=== PATIENT | male | born 1980 | race Caucasian/White ===

== ENCOUNTER 2019-11-28 14:15 | Observation (INO) | payer OTHER, SELFPAY ==
--- NOTE | ~2019-11-28 | CT_ITS ---
EXAMINATION: CT brain w con DATE: 11/28/2019 16:21 INDICATION: Right sided skull mass for 5 days TECHNIQUE: Computed tomography (CT) of the head was performed with 100 cc Omnipaque 350 intravenous c ontrast. The dose-length product was 605.33 mGy-cm. Automated exposure control and iterative reconstr uction technique were employed. COMPARISON: No prior studies for comparison. FINDINGS: No acute intracranial hemorrhage, infarction, mass or mass effect. No abnormal enhancement. No ventriculomegaly or midline shift. Basilar cisterns are patent. Paranasal sinuses demonstrate mil d mucosal thickening of the ethmoid sinuses. Mastoids are pneumatized. No depressed skull fractures. IMPRESSION: 1. No abnormal masses. No acute intracranial abnormality. Reviewed, dictated and finalized at location A.
[2019-11-28 14:35] VITALS: BP 159/89; PULSE 89; RESP 17; TEMP 37.2; O2SAT 97
--- NOTE | 2019-11-28 15:09 | ED.SKABFB ---
HPI - Skin/Abscess/Foreign Bdy General Chief complaint: Skin/Abscess/Foreign Body Stated complaint: knot on the back of neck Source: patient History of Present Illness HPI narrative: 39-year-old developed a mass behind his right ear 5 days ago that has gotten larger. It's uncomfortable at rest, made worse by turning his head to the left. He was started on Bactrim and cephalexin. He denies fevers, chills, nausea or vomiting. He states he has always had a small lump on his right posterior neck. He has chronic problems with small pustules appearing on his posterior scalp. He has history of MRSA of the scalp. His last MRSA infection was over a year ago. He has a history of getting small posterior scalp pustules. Related Data Home Medications Medication Instructions Recorded Confirmed albuterol sulfate 90 mcg/actuation 1 puff INHALATION Q4-5H 11/24/19 11/28/19 aerosol inhaler Allergies Allergy/AdvReac Type Severity Reaction Status Date / Time lisinopril Allergy Intermediate Cough Verified 11/24/19 08:23 Review of Systems Constitutional: Constitutional: Denies body ache(s) ENT: Denies nasal discharge and Denies sore throat Respiratory: Respiratory: Denies cough and Denies dyspnea Comments: no recent exacerbation of asthma. Gastrointestinal: Gastrointestinal: Denies diarrhea, Denies nausea and Denies vomiting Integumentary/Breasts: Comments: no rash PMFSH Past Medical History Medical History (Updated 11/29/19 @ 01:29 by Krishan Joseph MD) Cellulitis 08/2017 Required hospitalization 05/2016 Required hospitalization Cigarette nicotine dependence HTN (hypertension) Moderate persistent asthma Obesity FABIAN (obstructive sleep apnea) Surgical History Surgical History (Updated 11/24/19 @ 09:31 by Khushi Moran MA) H/O knee surgery Social History Social History Smoking packs per day: 1 Smoking cigarettes per day: 20.0 Smoking status: Former smoker Tobacco type: cigarettes Smokeless tobacco user: chewing tobacco Second hand tobacco smoke exposure: Yes Alcohol intake: current Drinks per week: 5 Substance use: current Substance use type: marijuana Additional living arrangements comments: , has 2 children Gender identity (if verbalized by the patient): Male Sexual Orientation (if Verbalized by the Patient): Straight or Heterosexual Spiritual care concerns: No Exam Const: General: no acute distress Nutritional Appearance: obese Orientation/consciousness: patient oriented x3 Other: nAD HENMT: Head: scalp lesion (See diagram. ), scalp tenderness and other Head images: 1. 10 x 12 cm subcutaneous mass. The skin is pink with small scattered papules. The mass is indurated with minor tenderness. It is not warm. There is no fluctuance. There's no hair loss, pustules or scaly rash. Ears: external ears normal (no right auricular swelling or tenderness. ) Neck: Lymphatic: no lymphadenopathy noted Other: Full neck ROM but c/o of tightness and increased discomfort with head rotation to the left. Course Course Emergency Course: I spoke to aviation survival technician about best soft tissue CT to do looking to more clearly identify right scalp lesion. No soft tissue head scan study. CT brain with IV contrast was identified as the best study. I discussed the lab and CT results with pt. Enlarging and more tender mass is concerning for inadequately treated scalp cellulitis. Will admit for IV antibiotics. Vital Signs Vital signs: Vital Signs Temperature 37.2 C 11/28/19 14:35 Pulse Rate 89 11/28/19 14:35 Respiratory Rate 17 11/28/19 14:35 Blood Pressure 159/89 H 11/28/19 14:35 Pulse Oximetry 97 11/28/19 14:35 Temperature 37.0 C 11/29/19 00:00 Pulse Rate 80 11/29/19 00:00 Respiratory Rate 20 11/29/19 00:00 Blood Pressure 123/88 11/29/19 00:00 Pulse Oximetry 97 11/29/19 00:00 [facility] -
[2019-11-28 15:23] LABS: Basophils Absolute Auto 0.05 K/mm3 (0.00-0.10); Basophils Percent Auto 0.7 % (0.0-1.0); Eosinophils Percent Auto 2.6 % (1.0-6.0); Hematocrit 47.1 % (40.0-54.0); Hemoglobin 14.7 g/dL (14.0-18.0); Immature Granulocyte Absolute 0.03 K/mm3 (0.00-0.00); Immature Granulocyte Percent A 0.4 % (0.0-0.0); Lymphocytes Absolute Auto 0.91 K/mm3 (1.10-4.50); Lymphocytes Percent Auto 11.9 % (18.0-42.0); Mean Corpuscular HGB Conc 31.2 g/dL (32.0-36.0); Mean Corpuscular Hemoglobin 28.1 pg (27.0-31.0); Mean Corpuscular Volume 90.1 fL (78.0-102.0); Mean Platelet Volume 10.9 fl (8.7-11.0); Monocytes Percent Auto 9.2 % (2.0-11.0); Neutrophils Absolute Auto 5.7 K/mm3 (1.7-7.2); Neutrophils Percent Auto 75.2 % (50.0-70.0); Platelet Count Result 181 K/mm3 (150-420); Red Blood Count 5.23 M/mm3 (4.70-6.10); Red Cell Distribution Width 13.8 % (11.6-14.4); White Blood Count 7.6 K/mm3 (4.8-10.8)
[2019-11-28 15:32] LABS: Anion Gap 10.2 mmol/L (7-16); Blood Urea Nitrogen 12 mg/dL (7-18); Carbon Dioxide 30 mmol/L (21-32); Chloride 102 mmol/L (98-108); Estimated Glomerular Filt Rate > 60; Glucose 110 mg/dL (70-99); Osmolality Calculated 286 mOsm/kg (285-295); Potassium 4.2 mmol/L (3.5-5.1); Sodium 138 mmol/L (136-145)
[2019-11-28 17:26] VITALS: BP 150/86; PULSE 69; O2SAT 94
[2019-11-28 17:52] VITALS: BMI 52.4
[2019-11-28] MEDS: ALBUTEROL SULFATE (*SP) INHALER 1 PUFF INHALATION ×2 (18:40→22:18)
[2019-11-28] MEDS: BUDESONIDE/FORMOTEROL (*SP) 160-4.5 MCG 6 GM INH 2 PUFF INHALATION (18:40)
--- NOTE | 2019-11-28 19:30 | PC.NURSE ---
patient sitting in chair at bedside. Denies need for assistance at this time.
[2019-11-28 20:00] VITALS: BP 144/77; PULSE 92; RESP 18; TEMP 37.1; O2SAT 95
--- NOTE | 2019-11-28 20:39 | PC.NURSE ---
vancomycin infusion started
--- NOTE | 2019-11-28 21:27 | PC.NURSE ---
home medications placed in bin in med room
--- NOTE | 2019-11-28 21:30 | PC.NURSE ---
vancomycin infusing patient tolerating well
--- NOTE | 2019-11-28 22:15 | PC.NURSE ---
Vancomycin infusion finished. Patient denies complaints.
--- NOTE | 2019-11-28 23:00 | PC.NURSE ---
Patient sitting in chair at bedside. Patient tolerated vancomycin infusion well. Patient denies needing assistance at this time.
[2019-11-29] VITALS: BP 123/88; PULSE 80; RESP 20; TEMP 37; O2SAT 97
--- NOTE | 2019-11-29 | PC.NURSE ---
Vital signs taken. Patient resting in bed. No complaints. Patient appears to be tolerating antibiotics well.
--- NOTE | 2019-11-29 01:00 | PC.NURSE ---
Patient resting in bed. No complaints. Patient tolerating antibiotics well.
--- NOTE | 2019-11-29 02:00 | PC.NURSE ---
Patient resting in bed. No reaction to vancomycin noted.
--- NOTE | 2019-11-29 03:40 | PC.NURSE ---
Patient resting in bed. No reactions to antibiotics noted.
--- NOTE | 2019-11-29 03:43 | PC.NURSE ---
Patient resting in bed. No complaints. Patient tolerating antibiotics well.
[2019-11-29 04:00] VITALS: BP 123/78; PULSE 61; RESP 18; TEMP 35.9; O2SAT 96
[2019-11-29 05:49] LABS: Basophils Absolute Auto 0.03 K/mm3 (0.00-0.10); Basophils Percent Auto 0.4 % (0.0-1.0); Eosinophils Absolute Auto 0.21 K/mm3 (0.02-0.50); Eosinophils Percent Auto 2.9 % (1.0-6.0); Hematocrit 43.8 % (40.0-54.0); Hemoglobin 13.4 g/dL (14.0-18.0); Immature Granulocyte Absolute 0.03 K/mm3 (0.00-0.00); Immature Granulocyte Percent A 0.4 % (0.0-0.0); Lymphocytes Absolute Auto 1.16 K/mm3 (1.10-4.50); Lymphocytes Percent Auto 16.2 % (18.0-42.0); Mean Corpuscular HGB Conc 30.6 g/dL (32.0-36.0); Mean Corpuscular Volume 91.4 fL (78.0-102.0); Mean Platelet Volume 10.9 fl (8.7-11.0); Monocytes Absolute Auto 0.63 K/mm3 (0.10-0.90); Monocytes Percent Auto 8.8 % (2.0-11.0); Neutrophils Absolute Auto 5.1 K/mm3 (1.7-7.2); Neutrophils Percent Auto 71.3 % (50.0-70.0); Platelet Count Result 172 K/mm3 (150-420); Red Blood Count 4.79 M/mm3 (4.70-6.10); Red Cell Distribution Width 13.9 % (11.6-14.4); White Blood Count 7.2 K/mm3 (4.8-10.8)
[2019-11-29] MEDS: ALBUTEROL SULFATE (*SP) INHALER 1 PUFF INHALATION ×5 (05:58→21:44)
[2019-11-29] MEDS: BUDESONIDE/FORMOTEROL (*SP) 160-4.5 MCG 6 GM INH 2 PUFF INHALATION ×2 (05:58→19:08)
[2019-11-29 07:41] VITALS: BP 123/90; PULSE 72; RESP 18; TEMP 36.3; O2SAT 98
--- NOTE | 2019-11-29 08:59 | PM.IMHP ---
H&P: HPI History of Present Illness Date/Time: 11/29/19 08:59 Chief complaint: knot on the back of neck Narrative: Nikita Holguin is a 39 year old male that presented to the [facility] ED due to a painful mass to his occipital area. patient has a past medical history of cellulitis with MRSA, hypertension, asthma, obesity, sleep apnea, history nicotine dependence. According to patient on Sunday he visited his primary care physician to complain of a painful mass located on the right side of his occipital area behind his ear in his hairline. Patient noted that when he turns his head he has pain to the area. Patient was given Bactrim and cephalexin by his primary care physician. patient noted that his situation had worsened and this is when he decided to come to our ED. patient does have a history of cellulitis with MRSA growth. He is being admitted to receive a couple days IV antibiotic due to failed treatment of p.o. antibiotics. he also has an appointment to see a product support rep on 12/05/19 due to his history of cellulitis.Patient able to tolerate all meals , slept well and ambulate at baseline. Patient denies SOB, CP, palpitation, extremity numbness, lightheadness, dizziness, constipation, diarrhea, chills or fever. Review of Systems Review of Systems: Narrative: CONSTITUTIONAL :No weight loss, fever, chills, weakness or fatigue.: HEENT: Eyes: No diplopia or blurred vision. ENT: No earache, sore throat or runny nose. CARDIOVASCULAR: No pressure, squeezing, strangling, tightness, heaviness or aching about the chest, neck, axilla or epigastrium. RESPIRATORY: No cough, shortness of breath, PND or orthopnea. GASTROINTESTINAL: No nausea, vomiting or diarrhea. GENITOURINARY: No dysuria, frequency or urgency. MUSCULOSKELETAL: No muscle, back pain, joint pain or stiffness. SKIN: mass to the right side of his back head behind his ear pain with movement NEUROLOGIC: No paresthesias, fasciculations, seizures or weakness. PSYCHIATRIC: No disorder of thought or mood. ENDOCRINE: No heat or cold intolerance, polyuria or polydipsia. HEMATOLOGICAL: No easy bruising or bleeding. [facility] Past Medical History Medical History (Updated 11/29/19 @ 01:29 by Krishan Joseph MD) Cellulitis 08/2017 Required hospitalization 05/2016 Required hospitalization Cigarette nicotine dependence HTN (hypertension) Moderate persistent asthma Obesity FABIAN (obstructive sleep apnea) Surgical History Surgical History (Updated 11/24/19 @ 09:31 by Khushi Moran MA) H/O knee surgery Social History Social History Smoking packs per day: 1 Smoking cigarettes per day: 20.0 Smoking status: Former smoker Tobacco type: cigarettes Smokeless tobacco user: chewing tobacco Second hand tobacco smoke exposure: Yes Alcohol intake: current Drinks per week: 5 Substance use: current Substance use type: marijuana Additional living arrangements comments: , has 2 children Gender identity (if verbalized by the patient): Male Sexual Orientation (if Verbalized by the Patient): Straight or Heterosexual Spiritual care concerns: No Meds Home Medications and Allergies Home Medications Medication Instructions Recorded Confirmed Type albuterol sulfate 90 mcg/actuation 1 puff INHALATION Q4-5H 11/24/19 11/28/19 History aerosol inhaler cephalexin 250 mg capsule 250 mg PO Q6H 10 Days #40 cap 11/24/19 11/28/19 Rx sulfamethoxazole 800 1 tablet PO Q12H 10 Days #20 tablet 11/24/19 11/28/19 Rx mg-trimethoprim 160 mg tablet budesonide-formoterol HFA 160 2 puff INHALATION Q12H #10.2 gm 11/28/19 11/28/19 Rx mcg-4.5 mcg/actuation aerosol inhaler Allergies Allergy/AdvReac Type Severity Reaction Status Date / Time lisinopril Allergy Intermediate Cough Verified 11/24/19 08:23 Vital Signs Vital Signs - 24 hr 11/28/19 14:35 11/28/19 17:26 11/28/19 20:00 Temperature 99.0
[2019-11-29 11:16] VITALS: BP 130/90; PULSE 88; RESP 16; TEMP 36.5; O2SAT 97
--- NOTE | 2019-11-29 14:15 | PC.NURSE ---
1415 [employer] [id number] shift. IV Vancomycin q 12 hours continues as ordered as scheduled.
--- NOTE | 2019-11-29 15:35 | PCDIET ---
Pt sitting up at edge of bed visiting with girlfriend. Has no complaints. swollen area to right neck at hairline. No open area noted. Pt complains it only hurts when he moves his neck.
[2019-11-29 15:51] VITALS: BP 159/84; PULSE 67; RESP 20; TEMP 35.3; O2SAT 96
[2019-11-29 20:00] VITALS: BP 153/77; PULSE 82; RESP 20; TEMP 36.2; O2SAT 98
--- NOTE | 2019-11-29 20:00 | PC.NURSE ---
Patient asked what his WBC level was when drawn in ER and this AM. When given values patient says he doesn't understand why he is here getting IV antibiotics when his WBC is normal. Patient asked to talk to . Charge nurse notified and she notified Dr Tuttle of patient asking to see him. Dr Tuttle said he'll come talk to patient later. Patient notified.
--- NOTE | 2019-11-29 21:00 | PC.NURSE ---
Addendum entered by Shira Cosby RN 11/29/19 21:27: Edit: time was 2119 Original Note: Patient says he's feeling better but would like to wait a little bit longer to restart Vancomycin. Call light in reach.
--- NOTE | 2019-11-29 21:05 | PC.NURSE ---
Patient reporting feeling weird since IV Vancomycin started. Vancomycin stopped and saline lock flushed. Told patient would check back with him in a bit and we'll let IV remain paused for approx 30 minutes and then start it again if he's comfortable with it. Patient verbalized understanding. Call light in reach.
--- NOTE | 2019-11-29 21:50 | PC.NURSE ---
Patient says he feels fine now but asked to wait another 10 minutes or so before restarting antibiotic.
--- NOTE | 2019-11-29 22:00 | PC.NURSE ---
IV Vancomycin retarted @ rate of 253ml/hr. Patient aware IV will take longer to infuse and says that's fine. Call light in reach.
--- NOTE | 2019-11-29 22:15 | PC.NURSE ---
Patient playing a game on his phone. Reports feeling fine @ this time. Call light in reach.
--- NOTE | 2019-11-29 22:30 | PC.NURSE ---
Patient continues to report feeling fine with IV Vancomycin infusing @ the slower rate of 253ml/hr. No distress noted. Call light in reach.
--- NOTE | 2019-11-29 23:10 | PC.NURSE ---
Patient says he's feeling fine. Sitting up and playing on his phone. IV Vancomycin infusing without difficulty. No distress noted. Call light in reach.
[2019-11-30] VITALS: BP 142/71; PULSE 78; RESP 20; TEMP 36.1; O2SAT 96
[2019-11-30] MEDS: ALBUTEROL SULFATE (*SP) INHALER 1 PUFF INHALATION ×3 (02:11→11:18)
[2019-11-30 04:00] VITALS: BP 142/71; PULSE 78; RESP 20; TEMP 36.1; O2SAT 96
[2019-11-30] MEDS: BUDESONIDE/FORMOTEROL (*SP) 160-4.5 MCG 6 GM INH 2 PUFF INHALATION (06:11)
--- NOTE | 2019-11-30 07:19 | P.DS_ITS ---
DS: Admitting Diagnosis Admitting Diagnosis Admitting Diagnosis: Cellulitis of head [any part, except face] <MARC Nina - Last Filed: 11/30/19 12:55> DS: Discharge Diagnosis Discharge Diagnosis (1) Cellulitis: Qualifiers: Site of cellulitis: head Qualified Code(s): L03.811 - Cellulitis of head [any part, except face] <MARC Nina - Last Filed: 11/30/19 12:55> Code(s): L03.90 - Cellulitis, unspecified <MARC Nina - Last Filed: 11/30/19 12:55> Status: Acute <MARC Nina - Last Filed: 11/30/19 12:55> Assessment and Plan: * CT of the head shows no abnormal masses * possibly secondary to follicular * continue vancomycin day 2 * patient will discharge home with clindomyacin 300 mg qid for 14 days * patient afebrile WBC within normal limits, patient refused labs today * patient has a history of cellulitis with MRSA * CT does not indicate that masses fluid filled * patient has an appointment with the beauty parlor cleaner on 12/05/2019 due to history of cellulitis to the head <MARC Nina - Last Filed: 11/30/19 12:55> (2) Obesity: Code(s): E66.9 - Obesity, unspecified <MARC Nina - Last Filed: 11/30/19 12:55> Status: Acute <MARC Nina - Last Filed: 11/30/19 12:55> Assessment and Plan: * patient educated on healthy lifestyle <MARC Nina - Last Filed: 11/30/19 12:55> (3) Skin cyst: Code(s): L72.9 - Follicular cyst of the skin and subcutaneous tissue, unspecified <MARC Nina - Last Filed: 11/30/19 12:55> Status: Acute <MARC Nina - Last Filed: 11/30/19 12:55> Assessment and Plan: * refer to cellulitis <Nawaf CardosoMARC - Last Filed: 11/30/19 12:55> (4) Folliculitis: Code(s): L73.9 - Follicular disorder, unspecified <Nawaf CardosoMARC - Last Filed: 11/30/19 12:55> Status: Acute <Nawaf Cardoso TRANS ROUTER-C - Last Filed: 11/30/19 12:55> Assessment and Plan: * refer to cellulitis <Nawaf CardosoMARC - Last Filed: 11/30/19 12:55> (5) Moderate persistent asthma: Code(s): J45.40 - Moderate persistent asthma, uncomplicated <Nawaf CardosoMARC - Last Filed: 11/30/19 12:55> Status: Acute <Nawaf Cardoso TRANS ROUTER-C - Last Filed: 11/30/19 12:55> Assessment and Plan: * continue home medication controlled <Nawaf CardosoMARC - Last Filed: 11/30/19 12:55> (6) FABIAN (obstructive sleep apnea): Code(s): G47.33 - Obstructive sleep apnea (adult) (pediatric) <Nawaf CardosoMARC - Last Filed: 11/30/19 12:55> Status: Acute <Nawaf CardosoMARC - Last Filed: 11/30/19 12:55> Assessment and Plan: * continues CPAP <Nawaf CardosoMARC - Last Filed: 11/30/19 12:55> (7) HTN (hypertension): Code(s): I10 - Essential (primary) hypertension <Nawaf CardosoMARC - Last Filed: 11/30/19 12:55> Status: Acute <Nawaf CardosoMARC - Last Filed: 11/30/19 12:55> Assessment and Plan: * stable 142/71 * patient not on any home medication * will follow-up with PCP <MARC Nina - Last Filed: 11/30/19 12:55> DS: Summary Hospital Course Hospital Course: refer to H&P patient will discharge today with levofloxacin 750 mg daily for 7 days. he does have an appointment with a beauty parlor cleaner due to his history MRSA. Patient will follow-
--- NOTE | 2019-11-30 07:19 | PM.DS ---
DS: Admitting Diagnosis Admitting Diagnosis Admitting Diagnosis: Cellulitis of head [any part, except face] <MARC Nina - Last Filed: 11/30/19 12:55> DS: Discharge Diagnosis Discharge Diagnosis (1) Cellulitis: Qualifiers: Site of cellulitis: head Qualified Code(s): L03.811 - Cellulitis of head [any part, except face] <MARC Nina - Last Filed: 11/30/19 12:55> Code(s): L03.90 - Cellulitis, unspecified <MARC Nina - Last Filed: 11/30/19 12:55> Status: Acute <MARC Nina - Last Filed: 11/30/19 12:55> Assessment and Plan: CT of the head shows no abnormal masses possibly secondary to follicular continue vancomycin day 2 patient will discharge home with clindomyacin 300 mg qid for 14 days patient afebrile WBC within normal limits, patient refused labs today patient has a history of cellulitis with MRSA CT does not indicate that masses fluid filled patient has an appointment with the oilfield plant and field operator on 12/05/2019 due to history of cellulitis to the head <MARC Nina - Last Filed: 11/30/19 12:55> (2) Obesity: Code(s): E66.9 - Obesity, unspecified <MARC Nina - Last Filed: 11/30/19 12:55> Status: Acute <MARC Nina - Last Filed: 11/30/19 12:55> Assessment and Plan: patient educated on healthy lifestyle <MARC Nina - Last Filed: 11/30/19 12:55> (3) Skin cyst: Code(s): L72.9 - Follicular cyst of the skin and subcutaneous tissue, unspecified <MARC Nina - Last Filed: 11/30/19 12:55> Status: Acute <MARC Nina - Last Filed: 11/30/19 12:55> Assessment and Plan: refer to cellulitis <MARC Nina - Last Filed: 11/30/19 12:55> (4) Folliculitis: Code(s): L73.9 - Follicular disorder, unspecified <Nawaf CardosoMARC - Last Filed: 11/30/19 12:55> Status: Acute <Nawaf Cardoso MUSIC TEACHER-C - Last Filed: 11/30/19 12:55> Assessment and Plan: refer to cellulitis <Nawaf CoronelMARC Huang - Last Filed: 11/30/19 12:55> (5) Moderate persistent asthma: Code(s): J45.40 - Moderate persistent asthma, uncomplicated <Nawaf Rosen MARC Cardoso - Last Filed: 11/30/19 12:55> Status: Acute <Nawaf Cardoso MUSIC TEACHER-C - Last Filed: 11/30/19 12:55> Assessment and Plan: continue home medication controlled <Nawaf CoronelMARC Huang - Last Filed: 11/30/19 12:55> (6) FABIAN (obstructive sleep apnea): Code(s): G47.33 - Obstructive sleep apnea (adult) (pediatric) <Nawaf Rosen FOSTER CardosoC - Last Filed: 11/30/19 12:55> Status: Acute <Nawaf CardosoMARC - Last Filed: 11/30/19 12:55> Assessment and Plan: continues CPAP <Nawaf CardosoYANCISadafSaran - Last Filed: 11/30/19 12:55> (7) HTN (hypertension): Code(s): I10 - Essential (primary) hypertension <Nawaf CoronelFOSTER HuangC - Last Filed: 11/30/19 12:55> Status: Acute <Nawaf CoronelYANCI HuangSadafSaran - Last Filed: 11/30/19 12:55> Assessment and Plan: stable 142/71 patient not on any home medication will follow-up with PCP <MARC Nina - Last Filed: 11/30/19 12:55> DS: Summary Hospital Course Hospital Course: refer to H&P patient will discharge today with levofloxacin 750 mg daily for 7 days. he does have an appointment with a oilfield plant and field operator due to his history MRSA. Patient will follow-up with his primary care physician and oilfield plant and field operator for further treatment. Patient able to tolerate all meals , slept well and ambulate at baseline. Patient denies SOB, CP, palpitation, extremity numbness, lightheadness, dizziness, constipation, diarrhea, chills or fever. Patient agree that they are ready for discharge and discharge plan. <Nawaf Cardoso, YANCI-C - Last Filed:
[2019-11-30 08:00] VITALS: BP 146/78; PULSE 70; RESP 16; TEMP 36.5; O2SAT 98
--- NOTE | 2019-11-30 09:26 | PC.NURSE ---
PT SITTING UP IN CHAIR. VANCOMYCIN INFUSING, AFTER FIRST 5 MIN PT COMPLAINED OF SLIGHT CHEST DISCOMFORT, STATES THIS HAS HAPPENED EVERY TIME WITH THIS MEDICINE, THEN IT GOES AWAY. PT THEN COMPLAINED OF RIGHT FLANK DISCOMFORT, TRANSFORMATION MANAGER NIRAJ MADE AWARE. IVPB SLOWED DOWN TO 200ML/HR. AFTER 10 MINUTES SUPERVISION, PT REPORTS NO DISCOMFORT. SONDA OFFERED TO STOP IV ABX AND CHANGE TO PO, PT REQUESTED TO ALLOW IV TO INFUSE AND PT WOULD NOTIFY STAFF OF ANY CHANGES.
--- NOTE | 2019-11-30 10:45 | PC.NURSE ---
PT SITTING UP IN CHAIR, PLAYING VIDEO GAMES ON PHONE. NO DISTRESS. NO COMPLAINTS. IV ABX INFUSING WITHOUT DIFFICULTY.
[2019-11-30 12:00] VITALS: BP 138/78; PULSE 77; RESP 16; TEMP 36.7; O2SAT 99
--- NOTE | 2019-11-30 12:51 | PC.NURSE ---
DR. CEE AND NIRAJ PAPER MILL SUPERINTENDENT AT BEDSIDE TO DISCUSS PLAN WITH PATIENT. ANTICIPATE DISCHARGE WITH STRONGER PO ABX, EXPLAINED S/S OF INFECTION/CELLULITIS/ABSCESS/LOCALIZED PT AND FAMILY CONCERNED ABOUT AREA BEING SOMETHING ELSE BECAUSE OF PATIENT NOT REFLECTING ELEVATED WBC. PT VERBALIZED UNDERSTANDING. PT REPORTS HAVING APPT WITH PIGMENT PRESSER 12/04.
== END 2019-11-30 13:00 | disposition home or self-care (01) ==
LOC: CHSED 14:20 → CHS2ND 17:29
PROVIDERS: Admitting Provider Family Medicine; Emergency Provider Family Medicine; PCP Nurse Practitioner Family; Visit Provider Family Medicine
DX: L03.811 Cellulitis of head [any part, except face] (principal); I10 Essential (primary) hypertension; J45.909 Unspecified asthma, uncomplicated; G47.33 Obstructive sleep apnea (adult) (pediatric); E66.9 Obesity, unspecified; Z87.891 Personal history of nicotine dependence
CPT/HCPCS: 36415; 70460; 73620; 80048; 85025; 96365; 96366; 99283; 99285; G0378; G0379; J3370; Q9965

== ENCOUNTER 2020-03-28 17:59 | Emergency (ER) | payer OTHER, SELFPAY ==
[2020-03-28 19:09] VITALS: BP 167/91; PULSE 86; RESP 20; TEMP 36.6; O2SAT 96
--- NOTE | 2020-03-28 19:13 | ED.SKABFB ---
HPI - Skin/Abscess/Foreign Bdy General Chief complaint: Skin/Abscess/Foreign Body Stated complaint: cyst on right thigh Source: patient and family Mode of arrival: ambulatory Limitations: no limitations History of Present Illness HPI narrative: Patient comes in due to abscess on right thigh medial aspect of thigh, near groin. This has an area of cellulitis around it which is significant. He denies fever. Area started getting tender several days ago. He has gotten some pus and some bloody drainage out of the area that is swollen. Discomfort is moderately severe, made worse with activity. Related Data Allergies Allergy/AdvReac Type Severity Reaction Status Date / Time lisinopril Allergy Intermediate Cough Verified 03/28/20 19:16 Review of Systems Constitutional: Constitutional: Reports no additional constitutional complaints Eyes: Eyes: Reports no additional eye complaints ENT: Reports system reviewed and no additional complaints, except as documented Cardiovascular: Cardiovascular: Reports no additional cardiovascular complaints Respiratory: Respiratory: Reports no additional respiratory complaints Gastrointestinal: Gastrointestinal: Reports no additional gastrointestinal complaints Genitourinary: Genitourinary: Reports no additional male genitourinary complaints Musculoskeletal: Musculoskeletal: Reports no additional musculoskeletal complaints Integumentary/Breasts: Skin/Breast: Reports system reviewed and no additional complaints, except as docu Neurologic: Reports system reviewed and no additional complaints, except as documented Psychiatric: Psychiatric: Reports no additional psychiatric complaints Endocrine: Endocrine: Reports no additional endocrine complaints Hematologic/Lymphatic: Hematologic/Lymphatic: Reports no additional hematologic/lymphatic complaints Allergic/Immunologic: Allergic/Immunologic: Reports no additional allergic/immunologic complaints PMFSH Past Medical History Medical History Cellulitis 08/2017 Required hospitalization 05/2016 Required hospitalization Cigarette nicotine dependence HTN (hypertension) Moderate persistent asthma Obesity FABIAN (obstructive sleep apnea) Surgical History Surgical History H/O knee surgery Family History Family History Other Family history of cardiovascular disease Family history of malignant neoplasm Hypertension Social History Social History Smoking packs per day: 1 Smoking cigarettes per day: 20.0 Smoking status: Former smoker Tobacco type: cigarettes Smokeless tobacco user: chewing tobacco Second hand tobacco smoke exposure: Yes Alcohol intake: current Drinks per week: 5 Substance use: current Substance use type: marijuana Additional living arrangements comments: , has 2 children Gender identity (if verbalized by the patient): Male Spiritual care concerns: No Exam Const: Orientation/consciousness: patient oriented x3 Other: He appears uncomfortable. HENMT: Head: normal to inspection Face and sinus: normal facial exam Eyes: Conjunctivae: conjunctivae normal Neck: Neck: normal visual inspection Chest: Chest palpation & inspection: normal inspection of the chest Resp: Effort & Inspection: normal respiratory effort Auscultation: clear to auscultation bilaterally Cardio: Rate: regular rate Rhythm: regular rhythm GI: Auscultation: normal bowel sounds Skin: General skin exam: normal color Other: He has a large area of cellulitis on the right thigh medial aspect. This is associated with tenderness of the area involved. In the middle there is an abscess area that is draining mostly bloody type fluid/drainage. Neuro: General: patient oriented x3 Extrem: General: normal to in
[2020-03-28] MEDS: cefTRIAXone 1 GM VIAL IM (19:25)
[2020-03-28] MEDS: LIDOCAINE HCL 1% LOCAL INJ 20 ML VIAL (19:28)
[2020-03-28 19:32] VITALS: PULSE 84; RESP 20; O2SAT 96
== END 2020-03-28 19:55 | disposition home or self-care (01) ==
PROVIDERS: Emergency Provider Emergency Medicine
DX: L02.214 Cutaneous abscess of groin (principal)
CPT/HCPCS: 10061; 96372; 99283; J0696

== ENCOUNTER 2020-05-24 12:17 | Outpatient (CLI) | payer OTHER, SELFPAY ==
--- NOTE | ~2020-05-24 | XR_ITS ---
EXAMINATION: XR lumbar spine min 4V DATE: 05/24/2020 12:50 INDICATION: Chronic low back pain and bilateral lower limb numbness. TECHNIQUE: Anteroposterior, lateral, and bilateral oblique views of the lumbar spine, and cone-down l ateral view of the lumbosacral junction were obtained. COMPARISON: None. FINDINGS: Congenitally small lower lumbar central canal with short pedicles at L4 and L5. Alignment is normal. Vertebral body heights are normal. No pars interarticularis defects. Mild to moderate disc height los s at L5-S1. Mild disc height loss at L4-L5. Moderate to severe facet osteoarthritis on the right at L 5-S1. Mild to moderate osteoarthritis at the remaining bilateral L4-L5 and L5-S1 facet joints. Mild f acet osteoarthritis in the more cephalad lumbar spine. Bilateral sacroiliac joint spaces are normal. Sacral arches are intact. IMPRESSION: 1. Mild to moderate lumbar spondylosis. Reviewed, dictated and finalized at location B. SERVICE FOOD SERVER
== END 2020-05-24 12:18 | disposition home or self-care (01) ==
PROVIDERS: PCP Nurse Practitioner Family; Visit Provider Nurse Practitioner Family
DX: M47.816 Spondylosis without myelopathy or radiculopathy, lumbar region (principal); M54.30 Sciatica, unspecified side; M54.5 Low back pain
CPT/HCPCS: 72110

== ENCOUNTER 2020-10-01 22:53 | Emergency (ER) | payer OTHER, SELFPAY ==
[2020-10-01 23:04] VITALS: BP 156/90; PULSE 92; RESP 22; TEMP 36.6; O2SAT 95
--- NOTE | 2020-10-01 23:10 | ED.ASTHMA ---
HPI - Asthma General Chief Complaint: Unspecified Stated Complaint: congestion, cough, chest pain Time Seen by Provider: 10/01/20 23:10 Source: patient Mode of arrival: ambulatory Limitations: no limitations History of Present Illness HPI Narrative: 40-year-old man with a history of asthma comes in today complaining of 3 4 days of nasal congestion, postnasal drainage, and a cough productive of clear sputum. States that he has had no sick exposures, has no shortness of breath has had no vomiting or diarrhea however states that he has had some mild pleuritic chest pain particularly with arching his back and with coughing. He complains of wheezing. complaint: asthma attack Onset (ago): day(s) (3-4) Severity: moderate Context: recent URI Associated symptoms: productive cough and chest pain Treatments Prior to Arrival: inhaled bronchodilator and inhaled steroid Related Data Current Asthma Therapy: inhaled bronchodilator and inhaled steroid Allergies Allergy/AdvReac Type Severity Reaction Status Date / Time lisinopril Allergy Intermediate Cough Verified 07/22/20 17:12 Review of Systems Constitutional: Constitutional: Denies chills, Denies fever(s) and Denies weakness Eyes: Eyes: Denies change in vision and Denies photophobia ENT: Reports nasal congestion and Denies sore throat Cardiovascular: Cardiovascular: Reports chest pain and Denies radiating jaw, neck or arm pain Respiratory: Respiratory: Reports cough, Denies dyspnea and Reports wheezing Gastrointestinal: Gastrointestinal: Denies abdominal pain, Denies nausea and Denies vomiting Musculoskeletal: Musculoskeletal: Denies arthralgias and Denies joint swelling Neurologic: Denies vertigo, Denies dizziness and Denies syncope Endocrine: Endocrine: Denies excessive sweating and Denies polyuria Hematologic/Lymphatic: Hematologic/Lymphatic: Denies easy bleeding and Denies easy bruising Allergic/Immunologic: Allergic/Immunologic: Denies lip swelling and Denies throat swelling FOR[facility]LY [facility] Past Medical History Medical History (Updated 10/01/20 @ 23:18 by Krishan Darden MD) Bulging of intervertebral disc between L4 and L5 Cellulitis 08/2017 Required hospitalization 05/2016 Required hospitalization Cellulitis Cigarette nicotine dependence Folliculitis HTN (hypertension) Lumbar nerve root compression L5 Moderate persistent asthma MRSA carrier Obesity FABIAN (obstructive sleep apnea) Osteoarthritis of facet joint at L5-S1 level of lumbosacral spine Surgical History Surgical History (Updated 10/01/20 @ 23:15 by Krishan Darden MD) H/O hernia repair H/O knee surgery Family History Family History Other Family history of cardiovascular disease Family history of malignant neoplasm Hypertension Social History Social History Smoking packs per day: 1 Smoking cigarettes per day: 20.0 Smoking status: Former smoker Tobacco type: cigarettes Smokeless tobacco user: chewing tobacco Second hand tobacco smoke exposure: Yes Alcohol intake: current Drinks per week: 5 Substance use: current Substance use type: marijuana Additional living arrangements comments: , has 2 children Gender identity (if verbalized by the patient): Male Spiritual care concerns: No Exam Const: General: no acute distress and alert Orientation/consciousness: patient oriented x3 HENMT: Head: normal to inspection Ears: external ears normal and EAC's normal Face and sinus: normal facial exam Mouth: Yes moist mucous membranes Throat: posterior oropharynx normal ( Except for mild erythema diffusely. No swelling or exudate.) Other: Mild bulging of the right TM without effusion. Left TM is normal. Eyes: Conjunctivae: conjunctivae normal Pupils: Equal, round and reactive pupils present EOM: EOMs intact bilaterally Resp: Effort & Inspe
[2020-10-01] MEDS: SODIUM CHLORIDE 0.9% 3 ML NEB FOR INHALATION (23:23)
[2020-10-01] MEDS: IPRATROPIUM 0.5 MG/ALBUTEROL SULFATE 2.5 MG AMPUL.NEB 3 ML INHALATION (23:23)
[2020-10-01] MEDS: predniSONE 20 MG TABLET 60 MG PO (23:23)
[2020-10-01 23:24] VITALS: PULSE 90; RESP 22; O2SAT 95
[2020-10-01 23:40] VITALS: PULSE 89; RESP 22; O2SAT 96
[2020-10-01 23:45] LABS: SARS-CoV-2 Ag Negative (Negative)
[2020-10-01 23:52] VITALS: BP 158/88; PULSE 91; RESP 19; TEMP 37.2; O2SAT 97
== END 2020-10-01 23:54 | disposition home or self-care (01) ==
PROVIDERS: Emergency Provider Emergency Medicine; PCP Nurse Practitioner Family
DX: J45.31 Mild persistent asthma with (acute) exacerbation (principal); Z20.822 Contact with and (suspected) exposure to COVID-19
CPT/HCPCS: 87426; 94640; 99283; A9270; C9803; J7512

== ENCOUNTER 2021-11-01 11:34 | Outpatient (CLI) | payer OTHER, SELFPAY ==
--- NOTE | ~2021-11-01 | US_ITS ---
EXAMINATION: US scrotum doppler DATE: 11/01/2021 12:31 INDICATION: Scrotal abscess TECHNIQUE: Testicular sonogram utilizing grayscale and Doppler COMPARISON: None. FINDINGS: Prominent diffuse scrotal edema. At the posterior inferior right side of the scrotum at the region of concern there is improvement of a few punctate foci of echogenic debris within a couple small otherw ise nearly anechoic fluid collections positioned within 1 cm of the skin surface which measure 1.4 x 0.8 cm and 1.5 x 0.6 cm there appears be within a tract of fluid extending between the 2 collections. There are few small echogenic and shadowing structures along the fluid collection. The right testis measures 4.9 x 3.6 x 3.2 cm. The left testis measures 4.7 x 3.2 x 3.1 cm. Symmetric normal grayscale appearance to both testes. There is normal vascular flow to both testes. The right e pididymis is normal with normal vascular flow. The left epididymis is normal with normal vascular yumi w. There is no varicocele. Minimal left hydrocele. IMPRESSION: 1. Prominent scrotal edema containing a couple small and likely communicating fluid collections as d etailed above. There are a few shadowing echogenic foci associated with the fluid collections of like ly either foreign bodies/surgical clips or dystrophic calcifications. Differential would include smal l foci of gas in the setting of Reanna's gangrene/necrotizing fasciitis although typically the ther e is dirty shadowing with more echogenic appearance. I discussed this with Dr. Nichols at 1:12 PM. 2. Normal bilateral testes and epididymides with minimal left hydrocele. Reviewed, dictated and finalized at location A. IMPRESSION: 1. Prominent scrotal edema containing a couple small and likely communicating fluid collections as detailed above. There are a few shadowing echogenic foci a ssociated with the fluid collections of likely either foreign bodies/surgical c lips or dystrophic calcifications. Differential would include small foci of gas in the setting of Reanna's gangrene/necrotizing fasciitis although typically the there is dirty shadowing with more echogenic appearance. I discussed thi s with Dr. Nichols at 1:12 PM. 2. Normal bilateral testes and epididymides with minimal left hydrocele.
== END 2021-11-01 11:35 | disposition home or self-care (01) ==
LOC: CHSIMG 11:39
PROVIDERS: PCP Nurse Practitioner Family; Visit Provider Nurse Practitioner Family
DX: L03.314 Cellulitis of groin (principal)
CPT/HCPCS: 76870; 93976

== ENCOUNTER 2022-05-05 13:37 | Outpatient (CLI) | payer OTHER, SELFPAY ==
[2022-05-05 13:48] LABS: Basophils Absolute Auto 0.05 K/mm3 (0.00-0.10); Basophils Percent Auto 0.7 % (0.0-1.0); Eosinophils Absolute Auto 0.22 K/mm3 (0.02-0.50); Eosinophils Percent Auto 2.9 % (1.0-6.0); Hematocrit 43.5 % (40.0-54.0); Hemoglobin 13.4 g/dL (14.0-18.0); Immature Granulocyte Absolute 0.03 K/mm3 (0.00-0.00); Immature Granulocyte Percent A 0.4 % (0.0-0.0); Lymphocytes Absolute Auto 0.78 K/mm3 (1.10-4.50); Lymphocytes Percent Auto 10.3 % (18.0-42.0); Mean Corpuscular HGB Conc 30.8 g/dL (32.0-36.0); Mean Corpuscular Hemoglobin 26.7 pg (27.0-31.0); Mean Corpuscular Volume 86.8 fL (78.0-102.0); Mean Platelet Volume 10.8 fl (8.7-11.0); Monocytes Absolute Auto 0.66 K/mm3 (0.10-0.90); Monocytes Percent Auto 8.7 % (2.0-11.0); Neutrophils Absolute Auto 5.8 K/mm3 (1.7-7.2); Platelet Count Result 197 K/mm3 (150-420); Red Blood Count 5.01 M/mm3 (4.70-6.10); Red Cell Distribution Width 14.9 % (11.6-14.4); White Blood Count 7.6 K/mm3 (4.8-10.8)
[2022-05-05 14:26] LABS: Alanine Aminotransferase 46 U/L (16-63); Albumin Level 3.4 g/dL (3.4-5.0); Alkaline Phosphatase 68 U/L (46-116); Anion Gap 8 mmol/L (8-16); Aspartate Amino Transferase 22 U/L (15-37); Bilirubin,Total 0.3 mg/dL (0.00-1.00); Blood Urea Nitrogen 12 mg/dL (7-18); CRP 1.9 mg/dL (0.0-0.9); Carbon Dioxide 30 mmol/L (21-32); Chloride 101 mmol/L (98-108); Estimated Glomerular Filt Rate > 60; Glucose 95 mg/dL (70-99); Osmolality Calculated 287 mOsm/kg (285-295); Potassium 4.4 mmol/L (3.5-5.1); Sodium 139 mmol/L (136-145); Total Protein 7.2 g/dL (6.4-8.2)
== END 2022-05-05 13:38 | disposition home or self-care (01) ==
LOC: CHSLAB 13:38
PROVIDERS: PCP Nurse Practitioner Family; Visit Provider Nurse Practitioner Family
DX: M79.642 Pain in left hand (principal); M79.641 Pain in right hand; M25.519 Pain in unspecified shoulder; M54.2 Cervicalgia
CPT/HCPCS: 36415; 80053; 85025; 86140

== ENCOUNTER 2022-07-12 12:40 | Outpatient (CLI) | payer OTHER, SELFPAY ==
--- NOTE | ~2022-07-12 | XR_ITS ---
Lumbosacral Spine: AP and lateral views Clinical History: Pain COMPARISON: 05/24/2020 Findings: The normal lordotic curve is maintained. The vertebral bodies and posterior elements are i ntact. There is mild degenerative disc narrowing at L4-L5 and L5-S1. Probable minimal facet arthropat hy from L3 through S1.. The sacroiliac joints are normally outlined. Impression: Mild degenerative spondylosis, as above. Reviewed, dictated and finalized at location M. Impression: Mild degenerative spondylosis, as above.
--- NOTE | ~2022-07-12 | XR_ITS ---
EXAM: XR shoulder LT min 2V DATE: 07/12/2022 13:17 HISTORY: LT ARM PAIN/NUMBESS . COMPARISON: None available. FINDINGS: Normal mineralization. No fracture or dislocation. No lytic or blastic lesion. Joint space s are maintained. No erosion or periosteal change. Soft tissues within normal limits. IMPRESSION: Unremarkable left shoulder radiograph findings. Reviewed, dictated and finalized at location K.
--- NOTE | ~2022-07-12 | XR_ITS ---
Cervical Spine: AP, lateral, open-mouth views Clinical History: Pain Findings: The normal lordotic curve is maintained. The vertebral bodies and posterior elements appea r intact. The intervertebral disc spaces are well maintained. There is minimal facet joint degenerat lilibeth change in the cervical spine. Pre-vertebral soft tissues are unremarkable. Impression: Minimal degenerative change, as above. Reviewed, dictated and finalized at location . Impression: Minimal degenerative change, as above.
== END 2022-07-12 12:41 | disposition home or self-care (01) ==
LOC: CHSIMG 12:42
PROVIDERS: PCP Nurse Practitioner Family; Visit Provider Nurse Practitioner Family
DX: M79.602 Pain in left arm (principal); M54.16 Radiculopathy, lumbar region; M47.817 Spondylosis without myelopathy or radiculopathy, lumbosacral region; M25.519 Pain in unspecified shoulder; M54.2 Cervicalgia; M43.05 Spondylolysis, thoracolumbar region
CPT/HCPCS: 72040; 72100; 73030

== ENCOUNTER 2022-07-25 09:55 | Outpatient (CLI) | payer OTHER, SELFPAY ==
--- NOTE | 2022-07-25 11:00 | NEURO_ITS ---
Impression: Patient reports a history of paresthesias in both hands, left more than right. # Left Carpal Tunnel Syndrome. # Early changes suggestive of evolving, right Carpal Tunnel Syndrome. # Normal needle/EMG exam. # Clinical correlation recommended. Motor Nerve Conduction Upper Extremities Median Nerve Conduction Velocity (m/sec) Terminal Latency (msec) Response Voltage(mV) Elbow-Wrist Wrist Elbow Wrist Right 57 3.8 4 5 Left 51 4.8 2 2 Ulnar Nerve Conduction Velocity (m/sec) Terminal Latency (msec) Response Voltage(mV) Above Elbow Below Elbow Wrist Above Elbow Below Elbow Wrist Right 51 59 2.5 7 7 9 Left 55 52 2.8 7 7 7 F-Wave Latency Median (ms) Ulnar (ms) Right 29.5 29.9 Left 30.2 30.7 Sensory Nerve Conduction Upper Extremities Median Nerve Stimulation Terminal Latency (msec) Wrist/Digit Response Voltage (uV) Wrist Right 3.8/3.7 37/24 Left 4.7/4.9 19/10 Ulnar Nerve Stimulation Terminal Latency (msec) Wrist/Digit Response Voltage (uV) Wrist Right 2.6 9 Left 2.9 24 Radial Nerve Terminal Latency (msec) Response Voltage(mV) Right 2.2 19 Left 2.0 21 Left Right Muscles Examined Fibrillation Fasciculation Scarcity Voltage Duration Left Right Left Right Left Right Left Right Left Right Deltoid Biceps X X Brachioradialis Triceps X X Pronator Teres X X Ext Indicis X X Ext Digitorum X X Abd Poll Brev X X 1st Dorsal Interosseus Paraspinals MTDD
== END 2022-07-25 09:56 | disposition home or self-care (01) ==
LOC: ANHNEURO 09:56
PROVIDERS: PCP Nurse Practitioner Family; Visit Provider Nurse Practitioner Family
DX: G56.22 Lesion of ulnar nerve, left upper limb (principal)
CPT/HCPCS: 95886; 95911

== ENCOUNTER 2023-05-11 12:04 | Outpatient (CLI) | payer OTHER, SELFPAY ==
--- NOTE | ~2023-05-11 | XR_ITS ---
Clinical Indication: Hemoptysis PA and lateral views of the chest: Comparison: 01/01/2013 Findings: There is focal retrocardiac consolidation. Right lung clear. Cardiomediastinal silhouette is within normal limits. Bones and soft tissues are unremarkable. Impression: Focal left lower lobe pneumonia. Reviewed, dictated and finalized at [facility]. PREPARER Impression: Focal left lower lobe pneumonia.
[2023-05-11 12:27] LABS: Basophils Absolute Auto 0.03 K/mm3 (0.00-0.10); Basophils Percent Auto 0.4 % (0.0-1.0); Eosinophils Absolute Auto 0.21 K/mm3 (0.02-0.50); Eosinophils Percent Auto 2.8 % (1.0-6.0); Hematocrit 39.7 % (40.0-54.0); Hemoglobin 12.4 g/dL (14.0-18.0); Immature Granulocyte Absolute 0.04 K/mm3 (0.00-0.00); Immature Granulocyte Percent A 0.5 % (0.0-0.0); Lymphocytes Absolute Auto 0.74 K/mm3 (1.10-4.50); Lymphocytes Percent Auto 9.9 % (18.0-42.0); Mean Corpuscular HGB Conc 31.2 g/dL (32.0-36.0); Mean Corpuscular Hemoglobin 26.9 pg (27.0-31.0); Mean Corpuscular Volume 86.1 fL (78.0-102.0); Mean Platelet Volume 10.9 fl (8.7-11.0); Monocytes Absolute Auto 0.55 K/mm3 (0.10-0.90); Monocytes Percent Auto 7.3 % (2.0-11.0); Neutrophils Absolute Auto 5.9 K/mm3 (1.7-7.2); Neutrophils Percent Auto 79.1 % (50.0-70.0); Platelet Count Result 238 K/mm3 (150-420); Red Blood Count 4.61 M/mm3 (4.70-6.10); Red Cell Distribution Width 15.3 % (11.6-14.4); White Blood Count 7.5 K/mm3 (4.8-10.8)
[2023-05-11 12:39] LABS: Hemoglobin A1C 5.5 % (<5.7)
[2023-05-11 13:04] LABS: Add Urine Microscopic? YES; Appearance Urine Clear (Clear); Bilirubin Urine Negative (Negative); Blood Urine 1+ (Negative); Color Urine Yellow (Yellow); Glucose Urine UA Negative (Negative); Ketones Urine Negative (Negative); Leukocyte Esterase Ur Negative (Negative); Nitrate Urine Negative (Negative); Protein Urine 1+ (Negative); Specific Grav Ur 1.025 (1.010-1.020); WBC Urine None seen /hpf (0-3)
[2023-05-11 13:05] LABS: Bacteria Urine Trace /hpf
[2023-05-11 13:41] LABS: Alanine Aminotransferase 43 U/L (16-63); Albumin Level 2.5 g/dL (3.4-5.0); Alkaline Phosphatase 64 U/L (46-116); Anion Gap 11 mmol/L (8-16); Aspartate Amino Transferase 29 U/L (15-37); Bilirubin,Total 0.3 mg/dL (0.00-1.00); Blood Urea Nitrogen 10 mg/dL (7-18); Calcium 8.3 mg/dL (8.5-10.1); Carbon Dioxide 29 mmol/L (21-32); Chloride 102 mmol/L (98-108); Cholesterol 145 mg/dL (0-200); Estimated Glomerular Filt Rate > 60; Glucose 110 mg/dL (70-99); HDL Direct 22 mg/dL (40-60); LDL Cholesterol Calculated 106 mg/dL (<130); NT Pro B Type Natriuretic Pept 241 pg/mL (0-125); Osmolality Calculated 294 mOsm/kg (285-295); Potassium 3.7 mmol/L (3.5-5.1); Sodium 142 mmol/L (136-145); Thyroid Stimulating Hormone 1.59 uIU/mL (0.36-3.74); Total Protein 6.7 g/dL (6.4-8.2); Triglycerides 83 mg/dL (0-150)
== END 2023-05-11 12:05 | disposition home or self-care (01) ==
LOC: CHSLAB 12:06
PROVIDERS: PCP Nurse Practitioner Family; Visit Provider Nurse Practitioner Family
DX: J18.8 Other pneumonia, unspecified organism (principal); R04.2 Hemoptysis; R35.0 Frequency of micturition; R53.83 Other fatigue; R06.2 Wheezing; R06.02 Shortness of breath; Z13.1 Encounter for screening for diabetes mellitus; G47.33 Obstructive sleep apnea (adult) (pediatric); R07.9 Chest pain, unspecified; I10 Essential (primary) hypertension; E66.9 Obesity, unspecified
CPT/HCPCS: 36415; 71046; 80053; 80061; 81001; 83036; 83880; 84443; 84484; 85025; 87086

== ENCOUNTER 2023-05-11 14:20 | Inpatient (IN) | payer OTHER, SELFPAY ==
[2023-05-11] VITALS (17 sets, daily range): BP systolic 147–183; BP diastolic 71–96; PULSE 73–102; RESP 13–20; TEMP 36.2–37.3; O2SAT 94–99; BMI 58.3
--- NOTE | ~2023-05-11 | XR_ITS ---
EXAMINATION: XR chest 1V portable INDICATION: Pneumonia TECHNIQUE: Portable AP chest at 0949 hours COMPARISON: 05/11/2023 FINDINGS: Airspace opacities of the left lower lobe slightly increased. No pleural effusion or pneumo thorax. The cardiomediastinal silhouette is normal. IMPRESSION: 1. Left lower lobe pneumonia with slight worsening. Reviewed, dictated and finalized at location F. AGE MANAGER
--- NOTE | ~2023-05-11 | CT_ITS ---
EXAMINATION: CTA chest PE protocol DATE: 05/11/2023 17:57 INDICATION: eval for PE TECHNIQUE: Computed tomography angiography (CTA) of the chest was performed with 100 mL Omnipaque-350 intravenous contrast timed to evaluate the pulmonary arteries. Coronal maximum intensity projection 3D-reconstructions were created by the technologist. The dose-length product (DLP) was 2145.31 mGy-cm . Automated exposure control and iterative reconstruction technique were employed. COMPARISON: None. FINDINGS: Lung parenchyma and airways: Somewhat masslike area of consolidation in the infrahilar/retrocardiac l eft lower lobe, with subsegmental areas of surrounding consolidation in the basilar left lower lobe a nd surrounding groundglass opacity. Pleura: Unremarkable. Thoracic inlet, axillae and chest wall: Bilateral symmetric gynecomastia. Thoracic aorta: Normal. Mediastinum: Mediastinal and left hilar lymphadenopathy. Heart and pericardium: Normal. Coronary artery calcifications: Absent. Upper abdomen: No significant finding. Bones: No acute osseous finding. Pulmonary arteries: Study quality: Adequate. No pulmonary emboli detected. IMPRESSION: No CT evidence of acute pulmonary embolus. Left lower lobe pneumonia. A component of hemorrhage or hemoaspiration may be present. Somewhat massl riley retrocardiac/infrahilar consolidation should be followed to ensure resolution. Reviewed, dictated and finalized at location K. GRADER IMPRESSION: No CT evidence of acute pulmonary embolus. Left lower lobe pneumonia. A component of hemorrhage or hemoaspiration may be p resent. Somewhat masslike retrocardiac/infrahilar consolidation should be follo wed to ensure resolution.
--- NOTE | 2023-05-11 14:22 | ECG_ITS ---
Measurements Intervals [place] Rate: 89 P: 26 [place]: 143 QRS: 24 QRSD: 104 T: 29 QT: 366 QTc: 448 Interpretive Statements SINUS RHYTHM VOLTAGE CRITERIA FOR LVH BORDERLINE T WAVE ABNORMALITY- INFERIOR LEADS BORDERLINE ECG NO PREVIOUS ECG AVAILABLE FOR COMPARISON Electronically Signed On 05-11-2023 14:39:06 SOFTWARE APPLICATIONS SPECIALIST by Vasu Fair D.O.
[2023-05-11 14:55] LABS: Basophils Percent Auto 0.5 % (0.2-1.2); Eosinophils Absolute Auto 0.2 K/mm3 (0-0.3); Eosinophils Percent Auto 2.7 % (0-4.4); Hematocrit 40.6 % (42.0-52.0); Hemoglobin 12.2 g/dL (14.0-18.0); Immature Granulocyte Absolute 0.05 K/mm3 (0.00-0.031); Immature Granulocyte Percent A 0.6 % (0-0.5); Lymphocytes Absolute Auto 0.75 K/mm3 (0.9-3.2); Lymphocytes Percent Auto 9.5 % (18.3-44.2); Mean Corpuscular Hemoglobin 26.3 pg (26-34); Mean Corpuscular Volume 87.7 fl (80-100); Mean Platelet Volume 11.2 fl (7.4-10.4); Monocytes Absolute Auto 0.6 K/mm3 (0.1-0.6); Monocytes Percent Auto 7.2 % (2.6-8.5); Neutrophils Absolute Auto 6.3 K/mm3 (1.3-6.7); Neutrophils Percent Auto 79.5 % (45.5-73.1); Platelet Count Result 212 k/mm3 (150-375); Red Blood Count 4.63 M/mm3 (4.6-6.20); Red Cell Distribution Width 15.4 % (11.5-14.5); White Blood Count 7.9 K/mm3 (4.5-10.0)
[2023-05-11 15:05] LABS: Alanine Aminotransferase 37 U/L (6-50); Albumin Level 3.7 g/dL (3.5-5.1); Alkaline Phosphatase 76 U/L (38-126); Anion Gap 10 mmol/L (8-16); Aspartate Amino Transferase 44 U/L (17-59); Bilirubin,Total 0.5 mg/dL (0.2-1.3); Blood Urea Nitrogen 10 mg/dL (9-20); Carbon Dioxide 29 mmol/L (22-30); Chloride 102 mmol/L (98-107); Estimated CRCL calculation 198 ml/min; Estimated Glomerular Filt Rate > 60; Glucose 130 mg/dL (65-110); Lipase 73 U/L (23-300); Potassium 3.3 mmol/L (3.4-5.0); Sodium 141 mmol/L (137-145)
[2023-05-11 15:10] LABS: Prothrombin Time 13.7 Seconds (11.1-14.7)
[2023-05-11 15:11] LABS: Partial Thromboplastin Time 30.4 SECONDS (22.3-36.8)
--- NOTE | 2023-05-11 16:07 | ED.RECABL ---
HPI - Recheck/Abnormal Lab/Rx General Chief Complaint: Recheck/Abnormal Lab/Rx Stated Complaint: jaw pain, sent by [place] for heart attack? Time Seen by Provider: 05/11/23 15:20 History of Present Illness HPI narrative: A 43-year-old male presenting with elevated troponin. Patient states that he has had a productive cough for several weeks. States that he started coughing up blood so he went to see his PCP who prashanth labs. He received a call this afternoon that his troponin was elevated and to come to the ER. States that he has been having some right-sided jaw pain but he otherwise denies complaints. No chest pain or shortness of breath. Continues to have a productive cough. No leg swelling. No numbness or weakness. No abdominal pain, nausea or vomiting. Related Data Home Medications Medication Instructions Recorded Confirmed albuterol sulfate 90 mcg/actuation 2 puff inhalation BID 05/11/23 05/11/23 aerosol inhaler budesonide-formoterol HFA 160 2 puff inhalation BID 05/11/23 05/11/23 mcg-4.5 mcg/actuation aerosol inhaler (Symbicort) Allergies Allergy/AdvReac Type Severity Reaction Status Date / Time lisinopril Allergy Intermediate Cough Verified 05/11/23 14:38 Review of Systems Review of Systems: All systems reviewed & are unremarkable except as noted in HPI and below PMFSH Past Medical History Medical History Bulging of intervertebral disc between L4 and L5 Cellulitis 08/2017 Required hospitalization 05/2016 Required hospitalization Cigarette nicotine dependence Hypertension Lumbar nerve root compression L5 Moderate persistent asthma MRSA carrier Obstructive sleep apnea on CPAP Osteoarthritis of facet joint at L5-S1 level of lumbosacral spine Surgical History Surgical History H/O hernia repair H/O knee surgery Family History Family History Grandparent Family history of cardiovascular disease Mother Family history of cardiovascular disease Hypertension Father Family history of malignant neoplasm Social History Social History Social History: Surrogate medical decision maker: Spouse. Code status: Full code. Smoking packs per day: 1 Smoking cigarettes per day: 20.0 Smoking status: Never smoker Tobacco type: cigarettes Smokeless tobacco user: chewing tobacco Second hand tobacco smoke exposure: No Alcohol intake: current Drinks per week: 5 Alcohol use details: social Substance use: never Substance use type: marijuana Do You Feel Safe in your Home?: Yes Lack of Transportation: No Lack of Food: Never True Current Housing: I Have Housing Concerned About Future Housing: No Difficulty Paying Gas/Electric Bills: No Difficulty Paying for Meds: No Currently Unemployed: No Education: High School Diploma/GED Difficulty w/ Childcare or Family Care: No Living arrangements: with family Additional living arrangements comments: Lives with spouse and 3 daughters in [place]. 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 Spiritual care concerns: No Exam Narrative: GENERAL: Nontoxic, in no acute distress, pleasant cooperative HEAD: Normocephalic, atraumatic. EYES: PERRLA and EOMI. ENT: Nares clear, no rhinorrhea or epistaxis. Mucous membranes moist. NECK: Supple. CHEST: Clear to auscultation. No respiratory distress. HEART: Regular rate and rhythm ABDOMEN: Soft, nontender, nondistended EXTREMITIES: Normal range of motion. No edema. SKIN: Warm, dry, no rash. NEURO: Alert and oriented x3. PSYCH: Normal mood and affect. Course Vital Signs Vital signs: Vital Signs Temperature 99.1 F 05/11/23 14:34 Pulse Rate 102 H 05/11/23 14:34 Respiratory R
[2023-05-11] MEDS: ASPIRIN 81 MG CHEWABLE TABLET 324 MG PO (16:33)
[2023-05-11] MEDS: HEPARIN SODIUM 5,000 UNITS/ML VIAL 9500 UNITS IV PUSH (17:01)
[2023-05-11] MEDS: HEPARIN SOD/D5W 100 UNITS/ML 25,000 UNITS/250 ML BAG 15 UNITS IV CONT (17:02)
[2023-05-11 17:22] LABS: Influenza A QL RT-PCR Negative (Negative); Influenza B QL RT-PCR Negative (Negative); RSV RNA, RT-PCR Negative (Negative); SARS-CoV-2 RNA PCR Negative (Negative)
--- NOTE | 2023-05-11 18:50 | ECG_ITS ---
Measurements Intervals [place] Rate: 81 P: 30 [place]: 141 QRS: 26 QRSD: 98 T: 31 QT: 366 QTc: 427 Interpretive Statements SINUS RHYTHM BASELINE WANDER- I, II, III, V1 NORMAL ECG COMPARED TO ECG 05/11/2023 14:30:41 NO SIGNIFICANT CHANGES Electronically Signed On 05-11-2023 20:15:00 CURB ATTENDANT by Vasu Fair D.O.
[2023-05-11] MEDS: cefTRIAXone 2 GM/NS 100 ML 2 GM/100 ML BAG IVPB (19:10)
[2023-05-11] MEDS: AZITHROMYCIN 500 MG/NS 250 ML 500 MG/250 ML BAG 250 MG IVPB (19:55)
--- NOTE | 2023-05-11 20:37 | ECG_ITS ---
Measurements Intervals [place] Rate: 79 P: 34 [place]: 145 QRS: 25 QRSD: 99 T: 32 QT: 368 QTc: 423 Interpretive Statements SINUS RHYTHM BASELINE WANDER- V4 NORMAL ECG COMPARED TO ECG 05/11/2023 18:52:06 NO SIGNIFICANT CHANGES Electronically Signed On 05-12-2023 7:05:45 AIRCRAFT ENGINE DISMANTLER by Vasu Fair D.O.
--- NOTE | 2023-05-11 22:24 | PM.IMHP ---
H&P: HPI History of Present Illness Date/Time: 05/11/23 19:30 Chief Complaint: Elevated troponin. Narrative: This is a pleasant 43-year-old male with asthma, hypertension, obstructive sleep apnea on CPAP, and morbid obesity who presented to the emergency department via private vehicle from home for evaluation of an elevated troponin. Patient provides the following history. He has not been feeling well for several weeks and his family members have had similar symptoms. He reports a productive cough which has contained a small amount of bright red blood the last several days, generalized malaise, subjective fever, chills, poor appetite, and pleuritic pain in the mid chest region. He was seen at his doctor's office today, had several labs drawn, and he was referred to the ED after his troponin came back elevated. On arrival he was afebrile with an SpO2 in the high 90s on room air. Labs were significant for WBC count of 7.9, hemoglobin 12.2, platelet 212, potassium 3.3, glucose 130, troponin 5.00. He tested negative for influenza, RSV, and COVID. Chest CTA showed no evidence of acute pulmonary embolism but did note a left lower lobe pneumonia with an area of possible hemorrhage or hemo aspiration and somewhat masslike retrocardiac/infrahilar consolidation. EKG showed a sinus rhythm with some flattening of the T-waves in the inferior leads. ED physician spoke with the real estate subagent and tornado chaser on-call and it was recommended that he be started on antibiotics for severe community-acquired pneumonia and a heparin drip. At the time my evaluation the patient is resting comfortably. He is not having any chest discomfort or shortness of breath at this time. He continues to have a nagging cough. He denies syncope, near syncope, sinus congestion, sore throat, exertional chest pain, vomiting, diarrhea, and calf pain. Review of Systems Review of Systems: Twelve systems were reviewed and are negative except for as per HPI. [facility] Past Medical History Medical History (Updated 05/11/23 @ 22:32 by Maryuri Avalos PA-C) Bulging of intervertebral disc between L4 and L5 Cellulitis 08/2017 Required hospitalization 05/2016 Required hospitalization Cigarette nicotine dependence Hypertension Lumbar nerve root compression L5 Moderate persistent asthma MRSA carrier Obstructive sleep apnea on CPAP Osteoarthritis of facet joint at L5-S1 level of lumbosacral spine Surgical History Surgical History H/O hernia repair H/O knee surgery Family History Family History Other Family history of cardiovascular disease Family history of malignant neoplasm Hypertension Social History Social History (Updated 05/11/23 @ 22:30 by Maryuri Avalos PA-C) Social History: Surrogate medical decision maker: Spouse. Code status: Full code. Smoking packs per day: 1 Smoking cigarettes per day: 20.0 Smoking status: Former smoker Tobacco type: cigarettes Smokeless tobacco user: chewing tobacco Second hand tobacco smoke exposure: Yes Alcohol intake: current Drinks per week: 5 Alcohol use details: social Substance use: current Substance use type: marijuana Living arrangements: with family Additional living arrangements comments: Lives with spouse and 3 daughters in [place]. 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 Spiritual care concerns: No Meds Home Medications and Allergies Home Medications Medication Instructions Recorded Confirmed Type losartan 25 mg tablet 25 mg PO DAILY 8 weeks #56 tabs 03/08/23 05/11/23 Rx doxycycline hyclate 100 mg capsule 100 mg PO BID 10 days #20 caps 05/03/23 05/11/23 Rx albuterol sulfate 90 mcg/actuation 2 puff inhalation BID 05/11/23 05/11/23 History aerosol inhaler benzonatate 200 mg capsule 200 mg PO BID PRN coug
--- NOTE | 2023-05-11 22:35 | ADMGEN ---
This patient, Nikita Holguin, was admitted to IMU Room 209-01. Patient/family oriented to hospital policies and general routines including ID bracelet, bed and alarms, visiting hours, pain management, procedures, bathroom and other care routines, personal items, smoking policy, room service/diet, and visiting hours. Information on how to activate the Rapid Response Team has been discussed. Patient/Family are encouraged to report perceived risks to care and to ask questions if they do not understand what they are told or what they should do.
[2023-05-11] MEDS: POTASSIUM CHLORIDE 20 MEQ ER TABLET PO (23:35)
[2023-05-11] MEDS: guaiFENesin 12 HR 600 MG TABCR PO (23:35)
[2023-05-11] MEDS: VANCOMYCIN 1,250 MG/NS 250 ML 1,250 MG/250 ML BAG 166.67 MG IVPB ×2 (23:37→23:43)
[2023-05-12] VITALS (14 sets, daily range): BP systolic 132–154; BP diastolic 56–78; PULSE 66–83; RESP 16–22; TEMP 35.9–36.8; O2SAT 95–100
[2023-05-12 00:11] LABS: Basophils Percent Auto 0.4 % (0.2-1.2); Eosinophils Absolute Auto 0.2 K/mm3 (0-0.3); Eosinophils Percent Auto 3.2 % (0-4.4); Hematocrit 38.5 % (42.0-52.0); Hemoglobin 11.8 g/dL (14.0-18.0); Immature Granulocyte Absolute 0.04 K/mm3 (0.00-0.031); Immature Granulocyte Percent A 0.5 % (0-0.5); Lymphocytes Absolute Auto 1.02 K/mm3 (0.9-3.2); Lymphocytes Percent Auto 13.6 % (18.3-44.2); Mean Corpuscular HGB Conc 30.6 g/dl (32-36); Mean Corpuscular Hemoglobin 26.6 pg (26-34); Mean Corpuscular Volume 86.9 fl (80-100); Monocytes Absolute Auto 0.5 K/mm3 (0.1-0.6); Monocytes Percent Auto 6.9 % (2.6-8.5); Neutrophils Absolute Auto 5.7 K/mm3 (1.3-6.7); Neutrophils Percent Auto 75.4 % (45.5-73.1); Platelet Count Result 224 k/mm3 (150-375); Red Blood Count 4.43 M/mm3 (4.6-6.20); Red Cell Distribution Width 15.4 % (11.5-14.5); White Blood Count 7.5 K/mm3 (4.5-10.0)
[2023-05-12 00:35] LABS: Partial Thromboplastin Time 38.7 SECONDS (22.3-36.8)
[2023-05-12] MEDS: HEPARIN SODIUM 5,000 UNITS/ML VIAL 9500 UNITS IV PUSH ×3 (00:53→13:55)
--- NOTE | 2023-05-12 06:37 | PCRCNOTE ---
Window of time for administration has passed. See next scheduled administration.
[2023-05-12 06:52] LABS: Basophils Percent Auto 0.6 % (0.2-1.2); Eosinophils Absolute Auto 0.3 K/mm3 (0-0.3); Eosinophils Percent Auto 3.9 % (0-4.4); Hematocrit 38.5 % (42.0-52.0); Hemoglobin 11.5 g/dL (14.0-18.0); Immature Granulocyte Absolute 0.04 K/mm3 (0.00-0.031); Immature Granulocyte Percent A 0.6 % (0-0.5); Lymphocytes Absolute Auto 0.96 K/mm3 (0.9-3.2); Mean Corpuscular HGB Conc 29.9 g/dl (32-36); Mean Corpuscular Hemoglobin 26.4 pg (26-34); Mean Corpuscular Volume 88.5 fl (80-100); Mean Platelet Volume 10.7 fl (7.4-10.4); Monocytes Absolute Auto 0.5 K/mm3 (0.1-0.6); Monocytes Percent Auto 7.3 % (2.6-8.5); Neutrophils Percent Auto 73.6 % (45.5-73.1); Platelet Count Result 210 k/mm3 (150-375); Red Blood Count 4.35 M/mm3 (4.6-6.20); Red Cell Distribution Width 15.5 % (11.5-14.5); White Blood Count 6.8 K/mm3 (4.5-10.0)
[2023-05-12 07:01] LABS: Cholesterol 133 mg/dL (0-200); HDL Direct 15 mg/dL; Triglycerides 130 mg/dL (<150)
[2023-05-12 07:12] LABS: LDL Cholesterol Direct 95 mg/dL
[2023-05-12] MEDS: HEPARIN SOD/D5W 100 UNITS/ML 25,000 UNITS/250 ML BAG 25 UNITS IV CONT (07:12)
[2023-05-12 07:15] LABS: Alanine Aminotransferase 37 U/L (6-50); Albumin Level 3.4 g/dL (3.5-5.1); Alkaline Phosphatase 68 U/L (38-126); Anion Gap 5 mmol/L (8-16); Aspartate Amino Transferase 35 U/L (17-59); Bilirubin,Total 0.5 mg/dL (0.2-1.3); Blood Urea Nitrogen 11 mg/dL (9-20); Calcium 8.5 mg/dL (8.4-10.2); Carbon Dioxide 32 mmol/L (22-30); Chloride 102 mmol/L (98-107); Estimated CRCL calculation 166 ml/min; Estimated Glomerular Filt Rate > 60; Glucose 105 mg/dL (65-110); Magnesium 1.9 mg/dL (1.6-2.3); Potassium 3.7 mmol/L (3.4-5.0); Sodium 139 mmol/L (137-145)
[2023-05-12 07:43] LABS: MRSA (PCR) NOT DETECTED (NOT DETECTE)
[2023-05-12] MEDS: guaiFENesin 12 HR 600 MG TABCR PO ×2 (08:23→21:10)
[2023-05-12] MEDS: LOSARTAN POTASSIUM 25 MG TABLET PO (08:23)
[2023-05-12] MEDS: ALBUTEROL SULFATE (*SP) AEROSOL 1 PUFF 2 PUFF INHALATION ×2 (09:05→21:17)
[2023-05-12] MEDS: FLUTICASONE/SALMETEROL 115-21 MCG INHALER 1 PUFF 2 PUFF INHALATION ×2 (09:05→21:17)
[2023-05-12] MEDS: PERFLUTREN LIPID MICROSPHERES 1.5 ML VIAL DILUTED TO 10 ML TOTAL VOLUME IV PUSH (10:10)
--- NOTE | 2023-05-12 10:29 | PM.CNPUL ---
Assessment and Plan Assessment and plan (1) Left lower lobe pneumonia: Code(s): J18.9 - Pneumonia, unspecified organism Status: Acute Assessment and Plan: A 43-year-old male patient with a history of morbid obesity, obstructive sleep apnea managed with CPAP, and asthma, initially presented with symptoms suggestive of an upper respiratory infection, including cough and congestion, more than two weeks prior to admission. His condition subsequently worsened, with the onset of chills and a productive cough with bloody secretions. The patient's history and diagnostic studies suggest an initial viral illness followed by bacterial pneumonia. Since admission, the patient's respiratory status has stabilized. He no longer has hemoptysis, his cough is mild with clear sputum, and there is no wheezing on physical examination. He is maintaining his oxygen levels on room air. He has been receiving appropriate antibiotic therapy, including IV ceftriaxone, Zithromax, and vancomycin. Given his history of MRSA carriage and the likelihood of post-viral staphylococcal or streptococcal pneumonia, the use of vancomycin appears appropriate. The plan is to continue the current antibiotic regimen. We will await the results of the MRSA screen and, if negative, discontinue IV vancomycin. Urine antigen tests for strep pneumonia and Legionella are pending. The patient has been on IV heparin due to elevated troponin levels, potentially indicative of NSTEMI. An echocardiogram has been performed and a cardiology evaluation is pending. There is currently no evidence of an asthma exacerbation, so the patient will continue with his prescribed maintenance and short-acting bronchodilators. The patient has brought his own CPAP machine for use during his inpatient stay. I will continue to monitor the patient's progress in collaboration with you.T (2) Obstructive sleep apnea on CPAP: Code(s): G47.33 - Obstructive sleep apnea (adult) (pediatric) Status: Acute (3) Hypertension: Code(s): I10 - Essential (primary) hypertension Status: Acute (4) Community acquired pneumonia: Code(s): J18.9 - Pneumonia, unspecified organism Status: Acute (5) Moderate persistent asthma: Code(s): J45.40 - Moderate persistent asthma, uncomplicated Status: Acute (6) Obesity: Code(s): E66.9 - Obesity, unspecified Status: Acute (7) Non-ST elevation [place] (NSTEMI): Code(s): I21.4 - Non-ST elevation (NSTEMI) myocardial infarction Status: Acute History of Present Illness History of Present Illness Consult date: 05/12/23 Chief complaint: Elevated Troponin Narrative: A 43-year-old male with a history of morbid obesity, obstructive sleep apnea managed with CPAP, and asthma managed with maintenance bronchodilators, presented with a few weeks of cough, chest congestion, and recent hemoptysis. His symptoms began approximately three weeks ago with cough, nasal congestion, and sputum production. He was evaluated by his primary care provider ten days ago and was prescribed oral doxycycline. Four days prior to admission, the patient experienced chills and felt unwell at work. He also felt feverish but did not measure his temperature. Two days later, he began coughing up blood, which lasted for about 30 hours. He has not had any further hemoptysis in the last 48 hours. Upon re-evaluation by his primary care provider, he was sent to the emergency room due to elevated troponin levels. He had experienced some chest pain a few days prior to admission. A chest CT in the emergency room revealed a left lower lobe infiltrate consistent with pneumonia, but no pulmonary embolism. His troponin remained elevated, and he was started on IV heparin. An echocardiogram was performed earlier today. Currently, the patient's condition is improving. He no longer has bloody secretions and his cough, though still present, is less frequent and produces clear sputum. He i
--- NOTE | 2023-05-12 11:26 | IVDEFINITY ---
Prior to administration of IV Definity the patient was educated on the risks and benefits of the imaging enhancing agent including potential adverse side effects. The patient verbalized understanding. Allergies were verified. No exclusion criteria were identified and at least one of the following inclusion criteria were met: 1) physician request, 2) patient technically difficult to image (per the [place] [employer] guidelines of two or more segments not discernable within the apical view), or 3) questionable left ventricular function. ?
--- NOTE | 2023-05-12 11:33 | PM.CNCAR ---
Assessment and Plan Assessment and plan (1) Non-ST elevation [place] (NSTEMI): Code(s): I21.4 - Non-ST elevation (NSTEMI) myocardial infarction Status: Acute (2) Hypertension: Code(s): I10 - Essential (primary) hypertension Status: Acute Assessment and Plan: Patient does have troponins which are consistent with a non ST elevation myocardial infarction. He was started on a heparin drip. This will be continued for minimum 48 hours. There is no [address] or T-wave abnormalities which are of concern and he has had no clinical syndrome for a myocardial infarction. This does raise concern given his other symptoms of a viral cardiomyopathy, myocarditis, stress-induced cardiomyopathy as he is under a great deal of stress at work. He did receive a 325 aspirin yesterday but will start an 81 mg aspirin daily. Will start low-dose metoprolol tartrate 12.5 mg p.o. b.i.d.. Will check a fasting lipid panel start him on atorvastatin 20 mg daily for now. 2D echocardiogram Doppler is ordered and will be reviewed. Further workup evaluation will be dependent on the above workup. Ischemic workup will likely be needed uncertain if this will result in a catheterization or stress test (3) Community acquired pneumonia: Code(s): J18.9 - Pneumonia, unspecified organism Status: Acute Assessment and Plan: Continue antibiotics (4) Hypokalemia: Code(s): E87.6 - Hypokalemia Status: Acute Assessment and Plan: Will give an additional 40 mEq of potassium chloride x1 now History of Present Illness History of Present Illness Consult date/time: 05/12/23 11:33 Requesting physician: Suma Medley MD Consult reason: Other (Elevated troponin) Reason For Visit: Elevated Troponin Narrative: Reason for consultation: Elevated troponin Date of service 05/12/2023 Requesting provider: Suma Medley History: Patient is a 43-year-old male who presented hospital at their insistence of his primary care provider because of it and elevated troponin which was drawn as an outpatient. Patient has a history of asthma, hypertension, sleep apnea and obesity. He has not been feeling well for the past several weeks. He has had a cough for at least 1 week. On Sunday he started to feel worse and essentially laid in bed off and on for the next several days. He started have hemoptysis 3 days prior to admission. He did feel chilled. At no point did he have any chest pain, syncope, presyncope, paroxysmal nocturnal dyspnea, orthopnea. She does advocate rare palpitations which is not new. He has had some lower extremity swelling which is also not new and is minor. CTA chest showed no pulmonary embolism. CT though did show a left lower lobe pneumonia an area of possible hemorrhage with somewhat masslike consolidation. He has been started on antibiotics. In the process workup troponins were drawn here in the hospital and they were also elevated at around level 5.0. He still advocates no chest pain. Is feeling better at this point. Review of Systems Review of Systems: All systems reviewed & are unremarkable except as noted in HPI and below Constitutional: Constitutional: Reports chills Eyes: Eyes: Denies blurry vision ENT: Reports Normal hearing present Cardiovascular: Cardiovascular: Denies chest pain Respiratory: Respiratory: Reports cough and Reports hemoptysis Gastrointestinal: Gastrointestinal: Denies abdominal pain Genitourinary: Genitourinary: Denies hematuria Musculoskeletal: Musculoskeletal: Denies arthralgias Integumentary/Breasts: Skin/Breast: Denies dry skin Neurologic: Denies Abnormal speech present Psychiatric: Psychiatric: Denies anxiety Endocrine: Endocrine: Denies excessive sweating Hematologic/Lymphatic: Hematologic/Lymphatic: Denies easy bleeding Allergic/Immunologic: Allergic/Immunologic: Denies GI upset with certain foods PMFSH Past Medical History Medical History (Revi
--- NOTE | 2023-05-12 12:50 | PM.IMPN ---
Progress Note: A&P Assessment and Plan (1) Left lower lobe pneumonia: Code(s): J18.9 - Pneumonia, unspecified organism Status: Acute (2) Non-ST elevation [place] (NSTEMI): Code(s): I21.4 - Non-ST elevation (NSTEMI) myocardial infarction Status: Acute (3) Bloody sputum: Code(s): R04.2 - Hemoptysis Status: Acute (4) Hypokalemia: Code(s): E87.6 - Hypokalemia Status: Acute (5) Asthma: Code(s): J45.909 - Unspecified asthma, uncomplicated Status: Inactive (6) Hypertension: Code(s): I10 - Essential (primary) hypertension Status: Acute (7) Obstructive sleep apnea on CPAP: Code(s): G47.33 - Obstructive sleep apnea (adult) (pediatric) Status: Acute Plan This is a 43-year-old male who presented to the ED due to abnormal labs which includes elevated troponin. Patient has had a productive cough for several weeks and started coughing up blood when he went to see his PCP prashanth some blood. He was recently started on doxycycline does have history of moderate persistent asthma with for which she uses Symbicort and albuterol p.r.n. EKG showed sinus rhythm without any acute ST-T changes. His WBC count was normal Rich troponin was elevated at 5583 normal remains on the level was 0-60. He was then routed to the ER for further evaluation. Serial troponin since then 5-5.1 7-4.68. EKG with normal sinus rhythm with no acute ST-T changes noted. CTA of the chest was negative for PE but did demonstrate left lower lobe pneumonia as well as findings of possible hemorrhage or hemo aspiration. With his elevated troponin is been placed on heparin drip and has been started broad-spectrum antibiotics to treat for community-acquired pneumonia. MRSA nares is been obtained but pending result. Will continue vancomycin until MRSA is back and negative. Echocardiogram is performed this a.m. and is pending no evidence of asthma exacerbation. Received 325 mg aspirin continue aspirin 81 mg daily. Cardiology consulted. History of FABIAN on CPAP DVT prophylaxis on heparin drip Subjective Date/time seen: 05/12/23 12:50 Interval history: No overnight events. On IV heparin. Discussed with Pulmonary. Chart reviewed and labs reviewed Review of Systems Review of Systems: All systems reviewed & are unremarkable except as noted in HPI and below Exam Narrative: General: Mildly ill-appearing gentleman sitting up in bed in no acute distress. HEENT:PERRL, EOMI. Sclera anicteric. Neck: Supple. Exam limited due to neck circumference. No obvious lymphadenopathy or thyromegaly. Respiratory: Respirations are nonlabored and he is speaking in full sentences. Frequent cough. Lung sounds are coarse at the bases with faint expiratory wheezing. Cardiovascular: Regular rate and rhythm with S1-S2. Gastrointestinal: Abdomen is soft, obese, nontender, and nondistended with positive bowel sounds. Skin: Warm and dry. No rash or lesions on limited exam. Extremities: No cyanosis, clubbing, or pitting edema. Radial and pedal pulses intact. No palpable knots or cords. Neurological: Alert. Cranial nerves 2-12 are grossly intact. No gross focal deficits to casual conversation. Psychiatric: Pleasant and cooperative with normal mood and affect. Judgment and insight intact. Objective Data Vital Signs Vital Signs: Vital Signs - 24 hr 05/11/23 14:34 05/11/23 15:33 05/11/23 15:34 Temperature 99.1 F Pulse Rate 102 H 86 Respiratory Rate 20 14 Blood Pressure 183/88 H 168/92 H Pulse Oximetry 95 98 98 Oxygen Delivery Room Air Room Air 05/11/23 15:31 05/11/23 15:34 05/11/23 15:47 Temperature Pulse Rate 88 86 93 Respiratory Rate 17 14 20 Blood Pressure 168/92 H 161/79 H Pulse Oximetry 98 98 96 Oxygen Delivery 05/11/23 16:15 05/11/23 16:17 05/11/23 17:05 Temperature Pulse Rate 87 80 87 Respiratory Rate 13 17 20 Blood Pressure 164/82 H 147/71 H 150/82 H Pulse Oximetry 96
[2023-05-12 12:56] LABS: Partial Thromboplastin Time 35.7 SECONDS (22.3-36.8)
[2023-05-12] MEDS: VANCOMYCIN 1,500 MG/NS 500 ML 1,500 MG/500 ML BAG 250 MG IVPB ×2 (13:41→23:55)
[2023-05-12] MEDS: HEPARIN SOD/D5W 100 UNITS/ML 25,000 UNITS/250 ML BAG 30 UNITS IV CONT (16:47)
[2023-05-12] MEDS: cefTRIAXone 2 GM/NS 100 ML 2 GM/100 ML BAG IVPB (18:52)
[2023-05-12] MEDS: HEPARIN SODIUM 5,000 UNITS/ML VIAL 5000 UNITS IV PUSH (21:08)
[2023-05-12] MEDS: AZITHROMYCIN 500 MG/NS 250 ML 500 MG/250 ML BAG 250 MG IVPB (21:08)
[2023-05-12] MEDS: METOPROLOL TARTRATE 12.5 MG TABLET PO (21:10)
--- NOTE | 2023-05-12 22:35 | ECHO_ITS ---
Patient Info Name: Nikita Holguin Age: 43 years : 1980 Gender: Male Ht: 72 in Wt: 415 lbs BSA: 3.20 m2 HR: 66 bpm BP: 141 / 78 mmHg Heart Rhythm: Sinus Rhythm Technical Quality: Good Exam Date: 05/12/2023 9:48 AM Exam Location: Echo Lab Patient Status: Inpatient Admit Date: 05/11/2023 Staff Ordering Physician: Maryuri Avalos PA-C Flash Welder: Lili Lee RDCS Attending Provider: Nila Herrmann MD Referring Physician: Robbie FIERRO; Exam Type: CA echo dop color flow w con Study Info Indications - N0n STEMI, HTN Complete two-dimensional, color flow and Doppler transthoracic echocardiogram is performed with contrast to opacify the left ventricle and to improve the deliniation of the left ventricle endocardial borders. Summary 1. Left ventricular chamber dimension is mildly enlarged. 2. Left ventricular systolic function is normal, estimated at 60-65%. 3. There is moderately increased left ventricular wall thickness. 4. The left ventricular diastolic function is normal. 5. Left atrial chamber dimension is mildly enlarged. 6. There is mild mitral valve regurgitation. 7. There is mild tricuspid valve regurgitation. 8. Mild pulmonary hypertension, estimated pulmonary arterial systolic pressure is 36 mmHg. 9. There is mild pulmonic regurgitation. Left Ventricle Left ventricular chamber dimension is mildly enlarged. Left ventricular systolic function is normal, estimated at 60-65%. There is moderately increased left ventricular wall thickness. The left ventricular diastolic function is normal. Right Ventricle Right ventricular chamber dimension is normal. Right ventricular systolic function is normal. Left Atria Left atrial chamber dimension is mildly enlarged. Right Atria Right atrial chamber dimension is normal. Atrial Septum Intact interatrial septum visualized by color flow imaging. Aortic Valve The aortic valve is trileaflet. There is mild aortic valve sclerosis. There is no aortic valve stenosis. There is trace aortic valve regurgitation. Pulmonic Valve The pulmonic valve is normal. There is no pulmonic valve stenosis. There is mild pulmonic regurgitation. Mitral Valve The mitral valve has normal leaflets. There is no mitral valve stenosis. There is mild mitral valve regurgitation. Tricuspid Valve The tricuspid valve leaflets are normal. There is no significant tricuspid valve stenosis. There is mild tricuspid valve regurgitation. Mild pulmonary hypertension, estimated pulmonary arterial systolic pressure is 36 mmHg. Pericardium/Pleural The pericardium appears normal. There is trivial pericardial effusion. Inferior Vena Cava Normal inferior vena cava with >50% collapse upon inspiration consistent with normal right atrial pressure, 10 mmHg. Aorta The aortic root size at the sinus of Valsalva is normal. Left Ventricular Outflow Tract Name Value Normal LVOT 2D LVOT Diameter 2.30 cm LVOT Doppler LVOT Peak Gradient 3 mmHg LVOT Mean Gradient 1 mmHg LVOT VTI 27.24 cm LVOT VTI/AV VTI Ratio 0.87 LVOT Stroke Volume
[2023-05-13] VITALS (15 sets, daily range): BP systolic 127–153; BP diastolic 58–75; PULSE 55–85; RESP 16–20; TEMP 36.6–37.2; O2SAT 94–100
[2023-05-13] MEDS: HEPARIN SOD/D5W 100 UNITS/ML 25,000 UNITS/250 ML BAG 32 UNITS IV CONT ×3 (00:40→17:51)
--- NOTE | 2023-05-13 04:11 | PC.NURSE ---
PTT due at 0300. Patient refusing to have labs drawn because it is too painful . Asked americanization teacher to come back in awhile. Medical Records Custodian returned at 0400, made one attempt to draw PTT and patient told her to take the needle out because it is too painful. Will ask [employer] lab manager, to attempt draw when she comes in soon.
[2023-05-13 04:59] LABS: Estimated CRCL calculation 178 ml/min; Estimated Glomerular Filt Rate > 60
[2023-05-13] MEDS: LOSARTAN POTASSIUM 25 MG TABLET PO (08:33)
[2023-05-13] MEDS: ATORVASTATIN 20 MG TABLET PO (08:34)
[2023-05-13] MEDS: METOPROLOL TARTRATE 12.5 MG TABLET PO ×2 (08:34→20:26)
[2023-05-13] MEDS: guaiFENesin 12 HR 600 MG TABCR PO ×2 (08:34→20:26)
[2023-05-13] MEDS: ASPIRIN 81 MG ENTERIC TABLET PO (08:34)
[2023-05-13] MEDS: ALBUTEROL SULFATE (*SP) AEROSOL 1 PUFF 2 PUFF INHALATION (08:38)
[2023-05-13] MEDS: FLUTICASONE/SALMETEROL 115-21 MCG INHALER 1 PUFF 2 PUFF INHALATION (08:39)
--- NOTE | 2023-05-13 09:04 | PM.IMPN ---
Progress Note: A&P Assessment and Plan (1) Left lower lobe pneumonia: Code(s): J18.9 - Pneumonia, unspecified organism Status: Acute (2) Non-ST elevation [place] (NSTEMI): Code(s): I21.4 - Non-ST elevation (NSTEMI) myocardial infarction Status: Acute (3) Bloody sputum: Code(s): R04.2 - Hemoptysis Status: Acute (4) Hypokalemia: Code(s): E87.6 - Hypokalemia Status: Acute (5) Asthma: Code(s): J45.909 - Unspecified asthma, uncomplicated Status: Inactive (6) Hypertension: Code(s): I10 - Essential (primary) hypertension Status: Acute (7) Obstructive sleep apnea on CPAP: Code(s): G47.33 - Obstructive sleep apnea (adult) (pediatric) Status: Acute Plan This is a 43-year-old male who presented to the ED due to abnormal labs which includes elevated troponin. Patient has had a productive cough for several weeks and started coughing up blood when he went to see his PCP prashanth some blood. He was recently started on doxycycline does have history of moderate persistent asthma with for which she uses Symbicort and albuterol p.r.n. EKG showed sinus rhythm without any acute ST-T changes. His WBC count was normal Rich troponin was elevated at 5583 normal remains on the level was 0-60. He was then routed to the ER for further evaluation. Serial troponin since then 5-5.1 7-4.68. EKG with normal sinus rhythm with no acute ST-T changes noted. CTA of the chest was negative for PE but did demonstrate left lower lobe pneumonia as well as findings of possible hemorrhage or hemo aspiration. With his elevated troponin is been placed on heparin drip and has been started broad-spectrum antibiotics to treat for community-acquired pneumonia. MRSA nares is been obtained but pending result. Will continue vancomycin until MRSA is back and negative. Echocardiogram is performed this a.m. and is pending no evidence of asthma exacerbation. Received 325 mg aspirin continue aspirin 81 mg daily. Cardiology consulted. Plan for cardiac catheterization in a.m. History of FABIAN on CPAP DVT prophylaxis on heparin drip Bacteremia with Gram-positive cocci in clusters probably contamination await finalization for pre vancomycin IV Subjective Date/time seen: 05/13/23 09:04 Interval history: Had an episode of coughing with sputum production which was blood streaked this a.m. has not had any since then. Denies any chest pain. No shortness of breath. Remains afebrile plan for heart catheterization in a.m. Review of Systems Review of Systems: All systems reviewed & are unremarkable except as noted in HPI and below Exam Narrative: General: Mildly ill-appearing gentleman sitting up in bed in no acute distress. HEENT:PERRL, EOMI. Sclera anicteric. Neck: Supple. Exam limited due to neck circumference. No obvious lymphadenopathy or thyromegaly. Respiratory: Respirations are nonlabored and he is speaking in full sentences. Frequent cough. Lung sounds are coarse at the bases with faint expiratory wheezing. Cardiovascular: Regular rate and rhythm with S1-S2. Gastrointestinal: Abdomen is soft, obese, nontender, and nondistended with positive bowel sounds. Skin: Warm and dry. No rash or lesions on limited exam. Extremities: No cyanosis, clubbing, or pitting edema. Radial and pedal pulses intact. No palpable knots or cords. Neurological: Alert. Cranial nerves 2-12 are grossly intact. No gross focal deficits to casual conversation. Psychiatric: Pleasant and cooperative with normal mood and affect. Judgment and insight intact. Objective Data Vital Signs Vital Signs: Vital Signs - 24 hr 05/12/23 09:07 05/12/23 09:07 05/12/23 12:34 Temperature 96.7 F L Pulse Rate 78 76 Respiratory Rate 20 22 H Blood Pressure 133/56 L Pulse Oximetry 98 96 Oxygen Delivery Room Air 05/12/23 16:30 05/12/23 12:00 05/12/23 16:00 Temperature 96.9 F L Pulse Rate 81 81 81 Respiratory Rate
--- NOTE | 2023-05-13 09:21 | PM.PNPUL ---
Progress Note: A&P Assessment and Plan (1) Left lower lobe pneumonia: Code(s): J18.9 - Pneumonia, unspecified organism Status: Acute Assessment and Plan: A 43-year-old male patient with a history of morbid obesity, obstructive sleep apnea managed with CPAP, and asthma, initially presented with symptoms suggestive of an upper respiratory infection, including cough and congestion, more than two weeks prior to admission. His condition subsequently worsened, with the onset of chills and a productive cough with bloody secretions. The patient's history and diagnostic studies suggest an initial viral illness followed by bacterial pneumonia. Since admission, the patient's respiratory status has stabilized. cough is mild with clear sputum, and there is no wheezing on physical examination. He had a blood tinged sputum this morning but no other respiratory symptoms. He is maintaining his oxygen levels on room air. He has been receiving appropriate antibiotic therapy, including IV ceftriaxone, Zithromax, and vancomycin. Blood culture consistent with some Gram-positive cocci final report pending The plan is to continue the current antibiotic regimen. Will proceed with chest x-ray. Monitor for increasing hemoptysis. Continue with CPAP at night. (2) Non-ST elevation [place] (NSTEMI): Code(s): I21.4 - Non-ST elevation (NSTEMI) myocardial infarction Status: Acute (3) Obstructive sleep apnea on CPAP: Code(s): G47.33 - Obstructive sleep apnea (adult) (pediatric) Status: Acute Subjective Date/time seen: 05/13/23 09:21 Interval history: Patient coughed up some blood-tinged sputum this a.m.. No other new respiratory symptoms. Overall feels better. He still on heparin IV. On room air. Afebrile. Review of Systems Review of Systems: All systems reviewed & are unremarkable except as noted in HPI and below Exam Narrative: GENERAL APPEARANCE: Well developed, well nourished, alert and cooperative, morbidly obese and appears to be in no acute distress while on room air SKIN: Inspection of the skin reveals no rashes, ulcerations or petechiae. HEENT: Sclerae anicteric and conjunctivae pink and moist. Extraocular movements were intact and pupils were equal, round, and reactive to light. The oral mucosa, hard and soft palate, tongue and posterior pharynx were normal. NECK: Supple. There was no thyroid enlargement, and no tenderness, or masses were felt. CHEST: Normal AP diameter and normal contour without any kyphoscoliosis. LUNGS: Rare crackles at bases posteriorly more on left, no wheezing CARDIAC: There was a regular rate and rhythm without any murmurs, gallops, rubs. ABDOMEN: Soft and nontender with normal bowel sounds. There was no organomegaly. LYMPH NODES: No lymphadenopathy was appreciated in the neck. EXTREMITIES: No cyanosis, clubbing or edema. NEUROLOGIC: Alert and oriented x 3. Normal affect. Objective Data Vital Signs Vital Signs: Vital Signs - 24 hr 05/12/23 12:34 05/12/23 16:30 05/12/23 12:00 Temperature 35.9 C L 36.1 C L Pulse Rate 76 81 81 Respiratory Rate 22 H 20 20 Blood Pressure 133/56 L 141/63 H Pulse Oximetry 96 98 98 Oxygen Delivery Room Air 05/12/23 16:00 05/12/23 19:52 05/12/23 21:10 Temperature 36.5 C Pulse Rate 81 76 76 Respiratory Rate 20 16 Blood Pressure 143/67 H Pulse Oximetry 98 95 Oxygen Delivery Room Air 05/12/23 21:17 05/12/23 20:00 05/12/23 20:00 Temperature Pulse Rate 79 79 Respiratory Rate Blood Pressure Pulse Oximetry 96 95 Oxygen Delivery Room Air Room Air 05/12/23 22:00 05/12/23 23:53 05/13/23 00:00 Temperature 36.2 C L Pulse Rate 74 68 63 Respiratory Rate 16 Blood Pressure 132/69 Pulse Oximetry 96 Oxygen Delivery 05/13/23 00:00 05/13/23 02:00 05/13/23 04:19 Temperature 36.6 C Pulse Rate 59 L 67 Respiratory Rate 18 Blood Pressure 136/58 L Pulse Oximetry 96 96 Oxygen Delivery CPAP
--- NOTE | 2023-05-13 10:47 | PM.PNCARD ---
Progress Note: A&P Assessment and Plan (1) Non-ST elevation [place] (NSTEMI): Code(s): I21.4 - Non-ST elevation (NSTEMI) myocardial infarction Status: Acute Assessment and Plan: Patient does have troponins which are consistent with a non ST elevation myocardial infarction. He was started on a heparin drip. This will be continued overnight. There is no ST or T-wave abnormalities which are of concern and he has had no clinical syndrome for a myocardial infarction. This does raise concern given his other symptoms of a viral cardiomyopathy, myocarditis. Echocardiogram was unremarkable. At this point continue aspirin, metoprolol, losartan, statin. I did talk to him about the risks benefits alternatives of the catheterization to define his anatomy and he is willing to proceed. Will keep NPO after midnight. Discontinue heparin at 6:00 a.m. (2) Hypertension: Code(s): I10 - Essential (primary) hypertension Status: Acute Assessment and Plan: near or at goal l (3) Community acquired pneumonia: Code(s): J18.9 - Pneumonia, unspecified organism Status: Acute Assessment and Plan: Continue antibiotics (4) Hypokalemia: Code(s): E87.6 - Hypokalemia Status: Acute Assessment and Plan: Replaced Subjective Date/time seen: 05/13/23 10:47 Interval history: 43-year-old admitted for elevated troponin with recent illness which appears to be consistent with a viral syndrome Date of service 05/13/2023: Patient coughed up some blood-tinged sputum this a.m.. No other new respiratory symptoms. Overall feels better. Still has no chest pain Review of Systems Review of Systems: All systems reviewed & are unremarkable except as noted in HPI and below Constitutional: Constitutional: Reports chills and Denies excessive sweating Eyes: Eyes: Denies blurry vision ENT: Reports Normal hearing present Cardiovascular: Cardiovascular: Denies chest pain Respiratory: Respiratory: Reports cough and Reports hemoptysis Gastrointestinal: Gastrointestinal: Denies abdominal pain Genitourinary: Genitourinary: Denies hematuria Musculoskeletal: Musculoskeletal: Denies arthralgias Integumentary/Breasts: Skin/Breast: Denies dry skin Neurologic: Reports Normal hearing present and Denies Abnormal speech present Psychiatric: Psychiatric: Denies anxiety Endocrine: Endocrine: Denies excessive sweating Hematologic/Lymphatic: Hematologic/Lymphatic: Denies easy bleeding Allergic/Immunologic: Allergic/Immunologic: Denies GI upset with certain foods Exam Narrative: Awake alert oriented appears stated age Const: General: comfortable and no acute distress HENMT: Ears: TM's normal bilaterally Face/Nose/Sinus: Normal nares present Eyes: General: appearance normal, both eyes and all related structures Sclera: sclerae normal Neck: Neck: supple and no JVD Carotids: no bruits Chest: Other: No reproducible chest wall pain to palpation Resp: Effort & Inspection: normal respiratory effort Auscultation: wheezes and diminished lung sounds Cardio: Rate: regular rate Rhythm: regular rhythm Heart sounds: no murmurs GI: Inspection: non-distended Auscultation: normal bowel sounds Skin: General skin exam: normal color and no rashes or lesions noted Other: Tattooing noted Neuro: General: gait normal Cranial nerves: Yes Normal hearing present Speech: normal speech and No Abnormal speech present Extrem: General: normal to inspection Psych: Mental Status: mental status grossly normal Affect: normal affect Objective Data Vital Signs Vital Signs: Vital Signs - 24 hr 05/12/23 12:34 05/12/23 16:30 05/12/23 12:00 Temperature 35.9 C L 36.1 C L Pulse Rate 76 81 81 Respiratory Rate 22 H 20 20 Blood Pressure 133/56 L 141/63 H Pulse Oximetry 96 98 98 Oxygen Delivery Room Air 05/12/23 16:00 05/12/23 19:52 05/12/23 21:10 Temperature 36.5 C Pul
[2023-05-13] MEDS: VANCOMYCIN 1,500 MG/NS 500 ML 1,500 MG/500 ML BAG 250 MG IVPB (11:18)
[2023-05-13] MEDS: cefTRIAXone 2 GM/NS 100 ML 2 GM/100 ML BAG IVPB (17:48)
[2023-05-13 18:03] LABS: Partial Thromboplastin Time 50.7 SECONDS (22.3-36.8)
[2023-05-13] MEDS: HEPARIN SODIUM 5,000 UNITS/ML VIAL 9500 UNITS IV PUSH (18:34)
[2023-05-13] MEDS: AZITHROMYCIN 500 MG/NS 250 ML 500 MG/250 ML BAG 125 MG IVPB (20:25)
[2023-05-13 23:50] LABS: Partial Thromboplastin Time 118.6 SECONDS (22.3-36.8); Vancomycin Trough 7.8 ug/mL (10.0-20.0)
[2023-05-14] VITALS (28 sets, daily range): BP systolic 111–172; BP diastolic 59–90; PULSE 52–97; RESP 14–20; TEMP 36.3–37.1; O2SAT 95–99
[2023-05-14] MEDS: VANCOMYCIN 2,000 MG/NS 500 ML 2,000 MG/500 ML BAG 250 MG IVPB ×2 (00:24→09:10)
[2023-05-14] MEDS: HEPARIN SOD/D5W 100 UNITS/ML 25,000 UNITS/250 ML BAG 35 UNITS IV CONT (00:30)
--- NOTE | 2023-05-14 05:44 | PC.NURSE ---
Patient is refusing to have AM labs drawn. States he will just talk to the doctors when they come in.
[2023-05-14 08:18] LABS: Basophils Percent Auto 0.5 % (0.2-1.2); Eosinophils Absolute Auto 0.2 K/mm3 (0-0.3); Eosinophils Percent Auto 3.6 % (0-4.4); Hemoglobin 10.4 g/dL (14.0-18.0); Immature Granulocyte Absolute 0.07 K/mm3 (0.00-0.031); Immature Granulocyte Percent A 1.2 % (0-0.5); Lymphocytes Absolute Auto 0.73 K/mm3 (0.9-3.2); Lymphocytes Percent Auto 12.7 % (18.3-44.2); Mean Corpuscular HGB Conc 28.9 g/dl (32-36); Mean Corpuscular Hemoglobin 26.1 pg (26-34); Mean Corpuscular Volume 90.5 fl (80-100); Mean Platelet Volume 10.5 fl (7.4-10.4); Monocytes Absolute Auto 0.5 K/mm3 (0.1-0.6); Neutrophils Absolute Auto 4.2 K/mm3 (1.3-6.7); Platelet Count Result 223 k/mm3 (150-375); Red Blood Count 3.98 M/mm3 (4.6-6.20); Red Cell Distribution Width 15.4 % (11.5-14.5); White Blood Count 5.8 K/mm3 (4.5-10.0)
[2023-05-14 08:31] LABS: Alanine Aminotransferase 34 U/L (6-50); Albumin Level 3.2 g/dL (3.5-5.1); Alkaline Phosphatase 60 U/L (38-126); Anion Gap 6 mmol/L (8-16); Aspartate Amino Transferase 24 U/L (17-59); Bilirubin,Total 0.3 mg/dL (0.2-1.3); Blood Urea Nitrogen 8 mg/dL (9-20); Calcium 8.1 mg/dL (8.4-10.2); Carbon Dioxide 28 mmol/L (22-30); Chloride 103 mmol/L (98-107); Estimated CRCL calculation 180 ml/min; Estimated Glomerular Filt Rate > 60; Glucose 103 mg/dL (65-110); Magnesium 2.1 mg/dL (1.6-2.3); Sodium 137 mmol/L (137-145)
[2023-05-14] MEDS: METOPROLOL TARTRATE 12.5 MG TABLET PO ×2 (09:11→20:57)
[2023-05-14] MEDS: ASPIRIN 81 MG ENTERIC TABLET PO (09:11)
[2023-05-14] MEDS: LOSARTAN POTASSIUM 25 MG TABLET PO (09:11)
[2023-05-14] MEDS: ATORVASTATIN 20 MG TABLET PO (09:11)
[2023-05-14] MEDS: guaiFENesin 12 HR 600 MG TABCR PO ×2 (09:11→20:57)
[2023-05-14 09:17] LABS: Hypochromasia 1+ (NORMAL); Platelet Estimate Adequate (Adequate); Schistocytes None Seen (NORMAL)
--- NOTE | 2023-05-14 09:28 | PM.PNPUL ---
Progress Note: A&P Assessment and Plan (1) Left lower lobe pneumonia: Code(s): J18.9 - Pneumonia, unspecified organism Status: Acute Assessment and Plan: AA 43-year-old male patient, with a medical history of morbid obesity, obstructive sleep apnea managed with CPAP, and asthma, initially presented with symptoms indicative of an upper respiratory infection, such as cough and congestion, over two weeks prior to admission. His condition subsequently deteriorated, with the development of chills and a productive cough with hemoptysis. The patient's history and diagnostic evaluations suggest an initial viral illness followed by bacterial pneumonia. Since his admission, the patient's respiratory status has stabilized. His cough has generally improved, although he continues to produce blood-tinged sputum in the mornings. He also reported some wheezing today. He is awaiting his cardiac procedure. Mild expiratory wheezing was noted on his physical examination today. He has been receiving appropriate antibiotic therapy, including IV ceftriaxone, azithromycin, and vancomycin. Blood culture is consistent with the presence of some Gram-positive cocci, with the final report pending. Urine antigen for streptococcal infection pending. The management plan includes continuation of the current antibiotic regimen while awaiting the final blood culture report. CPAP support will be continued at night. IV steroids will be added to his regimen for expiratory wheezing, given his history of asthma. Post-cardiac procedure, he will need to be placed on DVT prophylaxis. (2) Non-ST elevation [place] (NSTEMI): Code(s): I21.4 - Non-ST elevation (NSTEMI) myocardial infarction Status: Acute (3) Obstructive sleep apnea on CPAP: Code(s): G47.33 - Obstructive sleep apnea (adult) (pediatric) Status: Acute (4) Wheezing: Code(s): R06.2 - Wheezing Status: Acute Subjective Date/time seen: 05/14/23 09:28 Interval history: Patient overall feeling better. He continues to have cough with blood tinged sputum especially in a.m.. No hemoptysis during the rest of the day. Remains on room air. Also reports some wheezing. He has been using inhalers for his chronic asthma. Review of Systems Review of Systems: All systems reviewed & are unremarkable except as noted in HPI and below (HPI and below) Exam Narrative: GENERAL APPEARANCE: Well developed, well nourished, alert and cooperative, morbidly obese and appears to be in no acute distress while on room air SKIN: Inspection of the skin reveals no rashes, ulcerations or petechiae. HEENT: Sclerae anicteric and conjunctivae pink and moist. Extraocular movements were intact and pupils were equal, round, and reactive to light. The oral mucosa, hard and soft palate, tongue and posterior pharynx were normal. NECK: Supple. There was no thyroid enlargement, and no tenderness, or masses were felt. CHEST: Normal AP diameter and normal contour without any kyphoscoliosis. LUNGS: Rare crackles at bases posteriorly more on left, mild expiratory wheezing CARDIAC: There was a regular rate and rhythm without any murmurs, gallops, rubs. ABDOMEN: Soft and nontender with normal bowel sounds. There was no organomegaly. LYMPH NODES: No lymphadenopathy was appreciated in the neck. EXTREMITIES: No cyanosis, clubbing or edema. NEUROLOGIC: Alert and oriented x 3. Normal affect. Objective Data Vital Signs Vital Signs: Vital Signs - 24 hr 05/13/23 10:00 05/13/23 12:00 05/13/23 12:00 Temperature 37.2 C Pulse Rate 67 72 Respiratory Rate 18 Blood Pressure 153/69 H Pulse Oximetry 98 Oxygen Delivery Room Air 05/13/23 12:00 05/13/23 14:00 05/13/23 16:00 Temperature 36.7 C Pulse Rate 76 69 67 Respiratory Rate 16 Blood Pressure 135/75 Pulse Oximetry 95 Oxygen Delivery 05/13/23 16:00 05/13/23 16:00 05/13/23 18:00 Temperature Pulse Rate 69 71 Respiratory Rate
--- NOTE | 2023-05-14 10:11 | WPDMODSED ---
Moderate Sedation Note-Pt Data Patient Data Diagnosis: elevated troponin following viral syndrome Present Complaint: no complaints Procedure to be performed/Plan: left heart catheterization Allergies Allergy/AdvReac Type Severity Reaction Status Date / Time lisinopril Allergy Intermediate Cough Verified 05/11/23 14:38 Home Medications Medication Instructions Recorded Confirmed Type losartan 25 mg tablet 25 mg PO DAILY 8 weeks #56 tabs 03/08/23 05/11/23 Rx doxycycline hyclate 100 mg capsule 100 mg PO BID 10 days #20 caps 05/03/23 05/11/23 Rx albuterol sulfate 90 mcg/actuation 2 puff inhalation BID 05/11/23 05/11/23 History aerosol inhaler benzonatate 200 mg capsule 200 mg PO BID PRN cough #30 caps 05/11/23 05/11/23 Rx budesonide-formoterol HFA 160 2 puff inhalation BID 05/11/23 05/11/23 History mcg-4.5 mcg/actuation aerosol inhaler (Symbicort) guaifenesin 400 mg tablet 400 mg PO QID PRN congestion #30 05/11/23 05/11/23 Rx tabs Current Medications: Active Medications Acetaminophen (Acetaminophen 325 Mg Tablet) 650 mg PO Q6H PRN PRN Reason: Mild Pain (1-3) or Fever Hydrocodone Bitart/Acetaminophen (Hydrocodone/Acetaminophen (*Crx) 5-325 Mg Tablet) 1 tab PO Q6H PRN PRN Reason: Pain Rated 4-6 Albuterol (Albuterol Sulfate (*Sp) Aerosol 1 Puff) 2 puff INHALATION QIDRT PRN PRN Reason: Shortness Of Breath Albuterol (Albuterol Sulfate (*Sp) Aerosol 1 Puff) 2 puff INHALATION Q12HRT [facility] Last Admin: 05/14/23 07:07 Dose: Not Given Aspirin (Aspirin 81 Mg Enteric Tablet) 81 mg PO QAM [facility] Last Admin: 05/14/23 09:11 Dose: 81 mg Atorvastatin Calcium (Atorvastatin 20 Mg Tablet) 20 mg PO DAILY [facility] Last Admin: 05/14/23 09:11 Dose: 20 mg Guaifenesin (Guaifenesin 12 Hr 600 Mg Tabcr) 600 mg PO Q12HR [facility] Last Admin: 05/14/23 09:11 Dose: 600 mg Heparin Sodium (Porcine) (Heparin Sodium 5,000 Units/Ml Vial) 9,500 units IV PUSH PRN PRN PRN Reason: aPTT less than 55 seconds Last Admin: 05/13/23 18:34 Dose: 9,500 units Heparin Sodium (Porcine) (Heparin Sodium 5,000 Units/Ml Vial) 5,000 units IV PUSH PRN PRN PRN Reason: aPTT 55 - 70 seconds Last Admin: 05/12/23 21:08 Dose: 5,000 units Ceftriaxone Sodium (Rocephin 2 Gm/Ns 100 Ml) 2 gm in 100 mls @ 200 mls/hr IVPB Q24H [facility] Last Infusion: 05/13/23 18:20 Dose: Infused Azithromycin (Zithromax) 500 mg in 250 mls @ 250 mls/hr IVPB Q24H [facility] Last Infusion: 05/13/23 23:54 Dose: Infused Vancomycin HCl (Vancomycin 2,000 Mg/Ns 500 Ml) 2,000 mg in 500 mls @ 250 mls/hr IVPB Q8H [facility] Last Admin: 05/14/23 09:10 Dose: 250 mls/hr Losartan Potassium (Losartan Potassium 25 Mg Tablet) 25 mg PO DAILY [facility] Last Admin: 05/14/23 09:11 Dose: 25 mg Methylprednisolone Sodium Succinate (Methylprednisolone Sod Succ 125 Mg Vial) 60 mg IV PUSH BID [facility] Metoprolol Tartrate (Metoprolol Tartrate 12.5 Mg Tablet) 12.5 mg PO Q12HR [facility] Last Admin: 05/14/23 09:11 Dose: 12.5 mg Fluticasone/Salmeterol (Fluticasone/Salmeterol 115-21 Mcg Inhaler 1 Puff) 2 puff INHALATION Q12HRT [facility] Last Admin: 05/14/23 07:07 Dose: Not Given Sedation/Anesthesia: No previous sedation/anesthesia problems (including family history). [facility] Past Medical History Medical History Bulging of intervertebral disc between L4 and L5 Cellulitis 08/2017 Required hospitalization 05/2016 Required hospitalization Cigarette nicotine dependence Hypertension Lumbar nerve root compression L5 Moderate persistent asthma MRSA carrier Obstructive sleep apnea on CPAP Osteoarthritis of facet joint at L5-S1 level of lumbosacral spine Surgical History Surgical History H/O hernia repair H/O knee surgery Family History Family History Grandparent Family history of cardiovascular disease Mother Family history of cardiov
--- NOTE | 2023-05-14 11:54 | WPDCARDPROC ---
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 He entered the hospital with symptoms related to a viral syndrome but for reasons that are not clear troponin levels were sampled and are moderately elevated. Angiography has been recommended to rule out obstructive coronary disease. Procedure Procedure performed:: Left ventriculogram coronary angiogram Angio-Seal to right femoral artery Sedation/Medication given:: fentanyl 50 mg Versed 2 mg case start time 11:31 a.m. case end time 11:49 a.m. sedation provided by Merlene Plata RN, trained observer Access site:: right femoral artery Estimated blood loss:: minimal Procedure note:: patient was brought to the cardiac catheterization lab in the postabsorptive state the right femoral triangle was prepared and draped in the usual fashion. Anesthesia was provided with 1% lidocaine infiltrated locally. Using the modified Seldinger technique the right common femoral artery was punctured and a 5 [place] vascular sheath was placed. After this left heart catheterization was carried out. I used a 5 [place] angled pigtail catheter to perform left ventriculography into document left-sided hemodynamics and pullback pressures across the aortic valve. Following this I used a standard 5 [place] FL4 catheter to engage and inject the left coronary artery in multiple projections after this a 5 [place] JR4 catheter was used to engage and inject the right coronary artery. The cineangiograms were then reviewed and the case was terminated. An Angio-Seal device was deployed at the femoral puncture site after an angiogram was done confirming the suitable location for this. Procedure was well tolerated and uncomplicated there was no evidence of groin hematoma upon leaving the cardiac catheterization lab. Findings:: Hemodynamics: Central aortic pressure is 132/76 left ventricle 132 over 10 end-diastolic pressure 18 there is no gradient on pullback across the aortic valve. Left ventricle: Because of the patient's massive obesity opacification visualization of the left ventricle was suboptimal. Grossly LV size and contractility appeared to be unremarkable with in a visually estimated ejection fraction of 55-60%. The left main coronary artery is short but is widely patent the left anterior descending is a moderate caliber artery extending down to and around the apex. The LAD As well as its branches are smooth and free of atherosclerosis. the circumflex is a moderate caliber artery the 1st OM arises as a ramus intermedius which is a very large normal appearing artery. Remainder of the circumflex is also smooth and angiographically unremarkable in appearance the right coronary artery is large caliber and dominant to the posterior circulation. The right coronary artery is smooth and angiographically normal in appearance Conclusion:: 1. right coronary dominant circulation with no angiographic abnormalities 2. preserved left ventricular systolic function with mildly elevated LVEDP Adriel Ac MD FACC
[2023-05-14] MEDS: SODIUM CHLORIDE 0.9% IV 1,000 ML 125 ML IV CONT (13:00)
[2023-05-14 14:06] LABS: Mycoplasma IgM Antibody Titer 28 U/mL (<770)
--- NOTE | 2023-05-14 14:53 | PM.IMPN ---
Progress Note: A&P Assessment and Plan (1) Left lower lobe pneumonia: Code(s): J18.9 - Pneumonia, unspecified organism Status: Acute (2) Non-ST elevation [place] (NSTEMI): Code(s): I21.4 - Non-ST elevation (NSTEMI) myocardial infarction Status: Acute (3) Bloody sputum: Code(s): R04.2 - Hemoptysis Status: Acute (4) Hypokalemia: Code(s): E87.6 - Hypokalemia Status: Acute (5) Asthma: Code(s): J45.909 - Unspecified asthma, uncomplicated Status: Inactive (6) Hypertension: Code(s): I10 - Essential (primary) hypertension Status: Acute (7) Obstructive sleep apnea on CPAP: Code(s): G47.33 - Obstructive sleep apnea (adult) (pediatric) Status: Acute Plan This is a 43-year-old male who presented to the ED due to abnormal labs which includes elevated troponin. Patient has had a productive cough for several weeks and started coughing up blood when he went to see his PCP prashanth some blood. He was recently started on doxycycline does have history of moderate persistent asthma with for which she uses Symbicort and albuterol p.r.n. EKG showed sinus rhythm without any acute ST-T changes. His WBC count was normal Rich troponin was elevated at 5583 normal remains on the level was 0-60. He was then routed to the ER for further evaluation. Serial troponin since then 5-5.1 7-4.68. EKG with normal sinus rhythm with no acute ST-T changes noted. CTA of the chest was negative for PE but did demonstrate left lower lobe pneumonia as well as findings of possible hemorrhage or hemo aspiration. With his elevated troponin is been placed on heparin drip and has been started broad-spectrum antibiotics to treat for community-acquired pneumonia. MRSA nares is been obtained but pending result. Will continue vancomycin until MRSA is back and negative. Echocardiogram is performed and reviewed.no evidence of asthma exacerbation. Received 325 mg aspirin continue aspirin 81 mg daily. Cardiology consulted. status post cardiac cath which was negative. may stop aspirin 81 mg daily due to no cad. elevaed troponin likely demand ischemia due to underlying infection vs myocarditis related. staph hominis on blood.w ill stop vancomycin. asthma exacerbation: pulmomary started on iv steroid. History of FABIAN on CPAP DVT prophylaxis on heparin drip which is now off. Subjective Date/time seen: 05/14/23 14:53 Interval history: No overnight events. When cardiac catheterization today. feels okay. still has intermittent blood in his sputum. no sob, chest pain Review of Systems Review of Systems: All systems reviewed & are unremarkable except as noted in HPI and below Exam Narrative: General: Mildly ill-appearing gentleman sitting up in bed in no acute distress. HEENT:PERRL, EOMI. Sclera anicteric. Neck: Supple. Exam limited due to neck circumference. No obvious lymphadenopathy or thyromegaly. Respiratory: Respirations are nonlabored and he is speaking in full sentences. Frequent cough. Lung sounds are coarse at the bases no wheezes Cardiovascular: Regular rate and rhythm with S1-S2. Gastrointestinal: Abdomen is soft, obese, nontender, and nondistended with positive bowel sounds. Skin: Warm and dry. No rash or lesions on limited exam. Extremities: No cyanosis, clubbing, or pitting edema. Radial and pedal pulses intact. No palpable knots or cords. Neurological: Alert. Cranial nerves 2-12 are grossly intact. No gross focal deficits to casual conversation. Psychiatric: Pleasant and cooperative with normal mood and affect. Judgment and insight intact. Objective Data Vital Signs Vital Signs: Vital Signs - 24 hr 05/13/23 16:00 05/13/23 16:00 05/13/23 16:00 Temperature 98.1 F Pulse Rate 67 69 Respiratory Rate 16 Blood Pressure 135/75 Pulse Oximetry 95 Oxygen Delivery Room Air 05/13/23 18:00 05/13/23 20:26 05/13/23 20:00 Temperature 98.8 F Pulse Rate 71
[2023-05-14] MEDS: methylPREDNISolone SOD SUCC 125 MG VIAL 60 MG IV PUSH (17:04)
[2023-05-14] MEDS: cefTRIAXone 2 GM/NS 100 ML 2 GM/100 ML BAG IVPB (17:05)
[2023-05-14] MEDS: AZITHROMYCIN 500 MG/NS 250 ML 500 MG/250 ML BAG 250 MG IVPB (20:55)
[2023-05-15] VITALS (9 sets, daily range): BP systolic 139–143; BP diastolic 68–76; PULSE 47–100; RESP 18–20; TEMP 36.3–36.6; O2SAT 97–100
[2023-05-15 08:09] LABS: Basophils Percent Auto 0.3 % (0.2-1.2); Eosinophils Percent Auto 0.2 % (0-4.4); Hematocrit 38.4 % (42.0-52.0); Hemoglobin 11.2 g/dL (14.0-18.0); Immature Granulocyte Absolute 0.09 K/mm3 (0.00-0.031); Immature Granulocyte Percent A 1.4 % (0-0.5); Lymphocytes Absolute Auto 0.57 K/mm3 (0.9-3.2); Lymphocytes Percent Auto 9.1 % (18.3-44.2); Mean Corpuscular HGB Conc 29.2 g/dl (32-36); Mean Corpuscular Volume 89.3 fl (80-100); Mean Platelet Volume 10.5 fl (7.4-10.4); Monocytes Absolute Auto 0.3 K/mm3 (0.1-0.6); Monocytes Percent Auto 5.4 % (2.6-8.5); Neutrophils Absolute Auto 5.2 K/mm3 (1.3-6.7); Neutrophils Percent Auto 83.6 % (45.5-73.1); Platelet Count Result 271 k/mm3 (150-375); Red Cell Distribution Width 14.9 % (11.5-14.5); White Blood Count 6.3 K/mm3 (4.5-10.0)
[2023-05-15 08:22] LABS: Alanine Aminotransferase 40 U/L (6-50); Albumin Level 3.3 g/dL (3.5-5.1); Alkaline Phosphatase 59 U/L (38-126); Anion Gap 6 mmol/L (8-16); Aspartate Amino Transferase 27 U/L (17-59); Bilirubin,Total 0.3 mg/dL (0.2-1.3); Blood Urea Nitrogen 8 mg/dL (9-20); Calcium 8.4 mg/dL (8.4-10.2); Carbon Dioxide 27 mmol/L (22-30); Chloride 105 mmol/L (98-107); Estimated CRCL calculation 203 ml/min; Estimated Glomerular Filt Rate > 60; Glucose 128 mg/dL (65-110); Magnesium 2.1 mg/dL (1.6-2.3); Potassium 4.3 mmol/L (3.4-5.0); Sodium 138 mmol/L (137-145)
[2023-05-15] MEDS: ALBUTEROL SULFATE (*SP) AEROSOL 1 PUFF 2 PUFF INHALATION (08:52)
[2023-05-15] MEDS: FLUTICASONE/SALMETEROL 115-21 MCG INHALER 1 PUFF 2 PUFF INHALATION (08:52)
[2023-05-15] MEDS: methylPREDNISolone SOD SUCC 125 MG VIAL 60 MG IV PUSH (08:56)
[2023-05-15] MEDS: ATORVASTATIN 20 MG TABLET PO (08:56)
[2023-05-15] MEDS: LOSARTAN POTASSIUM 25 MG TABLET PO (08:56)
[2023-05-15] MEDS: METOPROLOL TARTRATE 12.5 MG TABLET PO (08:56)
[2023-05-15] MEDS: ASPIRIN 81 MG ENTERIC TABLET PO (08:56)
[2023-05-15] MEDS: guaiFENesin 12 HR 600 MG TABCR PO (08:56)
--- NOTE | 2023-05-15 09:08 | PM.DS ---
DS: Admitting Diagnosis Discharge Date 05/15/2023 Admitting Diagnosis Abnormal labs DS: Discharge Diagnosis Discharge Diagnosis (1) Left lower lobe pneumonia: Code(s): J18.9 - Pneumonia, unspecified organism Status: Acute (2) Non-ST elevation [place] (NSTEMI): Code(s): I21.4 - Non-ST elevation (NSTEMI) myocardial infarction Status: Acute (3) Bloody sputum: Code(s): R04.2 - Hemoptysis Status: Acute (4) Hypokalemia: Code(s): E87.6 - Hypokalemia Status: Acute (5) Asthma: Code(s): J45.909 - Unspecified asthma, uncomplicated Status: Inactive (6) Hypertension: Code(s): I10 - Essential (primary) hypertension Status: Acute (7) Obstructive sleep apnea on CPAP: Code(s): G47.33 - Obstructive sleep apnea (adult) (pediatric) Status: Acute DS: Summary Hospital Course Hospital Course: This is a 43-year-old male who presented to the ED due to abnormal labs which includes elevated troponin.? Patient has had a productive cough for several weeks and started coughing up blood when he went to see his PCP prashanth some blood.? He was recently started on doxycycline does have history of moderate persistent asthma with for which she uses Symbicort and albuterol p.r.n. EKG showed sinus rhythm without any acute ST-T changes.? His WBC count was normal Rich troponin was elevated at 5583 normal remains on the level was 0-60.? He was then routed to the ER for further evaluation.? Serial troponin since then 5-5.1 7-4.68.? EKG with normal sinus rhythm with no acute ST-T changes noted.? CTA of the chest was negative for PE but did demonstrate left lower lobe pneumonia as well as findings of possible hemorrhage or hemo aspiration.? With his elevated troponin is been placed on heparin drip and has been started broad-spectrum antibiotics to treat for community-acquired pneumonia.? MRSA nares is been obtained and came back. He was continued on vancomycin until then. He also had 1 the blood culture came back positive for Gram-positive cocci in clusters was identified as Staph home and is likely a contamination. Echocardiogram is performed and reviewed. He was also treated for asthma exacerbation steroid. For non ST elevation IN he received 325 mg aspirin when he arrived continuation of aspirin 81 mg daily.? Cardiology consulted.? status post cardiac cath which was negative with no evidence of coronary artery disease elevaed troponin likely demand ischemia due to underlying infection vs myocarditis related. History of FABIAN on CPAP DVT prophylaxis on heparin drip which is now off. Time Spent with Patient Time attestation: Total time spent providing and/or coordinating discharge services: 35 minutes Exam Narrative: General: Well appearing gentleman sitting up in bed in no acute distress. HEENT:PERRL, EOMI. Sclera anicteric. Neck: Supple. Exam limited due to neck circumference. No obvious lymphadenopathy or thyromegaly. Respiratory: Respirations are nonlabored and he is speaking in full sentences. Frequent cough. Lung sounds are coarse at the bases no wheezes Cardiovascular: Regular rate and rhythm with S1-S2. Gastrointestinal: Abdomen is soft, obese, nontender, and nondistended with positive bowel sounds. Skin: Warm and dry. No rash or lesions on limited exam. Extremities: No cyanosis, clubbing, or pitting edema. Radial and pedal pulses intact. No palpable knots or cords. Neurological: Alert. Cranial nerves 2-12 are grossly intact. No gross focal deficits to casual conversation. Psychiatric: Pleasant and cooperative with normal mood and affect. Judgment and insight intact. DS: Data Data Completed and Pending Completed studies during hospitalization: Exam Type: ? ? CA echo dop color flow w con Study Info Indications ?? ? - N0n STEMI, HTN Complete two-dimensional, color flow and Doppler transthoracic echocardiogram is performed with contrast to opacify the left ventricl
--- NOTE | 2023-05-15 09:26 | PM.PNPUL ---
Progress Note: A&P Assessment and Plan (1) Left lower lobe pneumonia: Code(s): J18.9 - Pneumonia, unspecified organism Status: Acute Assessment and Plan: AA 43-year-old male patient, with a medical history of morbid obesity, obstructive sleep apnea managed with CPAP, and asthma, initially presented with symptoms indicative of an upper respiratory infection, such as cough and congestion, over two weeks prior to admission. His condition subsequently deteriorated, with the development of chills and a productive cough with hemoptysis. The patient's history and diagnostic evaluations suggest an initial viral illness followed by bacterial pneumonia. Since his admission, the patient's respiratory status has stabilized. His cough has generally improved, although he continues to produce blood-tinged sputum in the mornings. He also reported some wheezing yesterday. He was placed on IV Solu-Medrol twice daily. Currently he has no shortness of breath or wheezing. He again coughed up blood tinged sputum this a.m.. On physical exam he no longer has wheezing. I had a lengthy discussion with the patient regarding further management. Okay to DC home today. I talked patient to continue with his maintenance bronchodilators for asthma. He will also be on prednisone 40 mg p.o. daily for 5 days regarding asthma exacerbation. He will be on antibiotic for example doxycycline 100 b.i.d. for another 5 days. I gave the patient my business card to call to make an appointment approximately 3 weeks from today. Will need to repeat the chest CT in approximately 3-4 weeks regarding the masslike consolidation in the left lower lobe which is also associated with some hilar lymphadenopathy. It is unclear whether the blood tinged sputum is related to pneumonia or another intraluminal lesion for which he will need repeat study or even bronchoscopy if he continues to have a blood tinged sputum. Specifically I told the patient to call and make an appointment in about 7 days if his blood tinged sputum continues. The case was also discussed with his hospitalist. Will sign off please call with any questions. (2) Non-ST elevation [place] (NSTEMI): Code(s): I21.4 - Non-ST elevation (NSTEMI) myocardial infarction Status: Acute (3) Obstructive sleep apnea on CPAP: Code(s): G47.33 - Obstructive sleep apnea (adult) (pediatric) Status: Acute (4) Wheezing: Code(s): R06.2 - Wheezing Status: Acute Subjective Date/time seen: 05/15/23 09:26 Interval history: Patient has no new respiratory symptoms. He continues to have a morning cough with blood-tinged sputum. No shortness of breath. No wheezing. Has been on room air. Eager to go home Review of Systems Review of Systems: All systems reviewed & are unremarkable except as noted in HPI and below (HPI and below) Exam Narrative: GENERAL APPEARANCE: Well developed, well nourished, alert and cooperative, morbidly obese and appears to be in no acute distress while on room air SKIN: Inspection of the skin reveals no rashes, ulcerations or petechiae. HEENT: Sclerae anicteric and conjunctivae pink and moist. Extraocular movements were intact and pupils were equal, round, and reactive to light. The oral mucosa, hard and soft palate, tongue and posterior pharynx were normal. NECK: Supple. There was no thyroid enlargement, and no tenderness, or masses were felt. CHEST: Normal AP diameter and normal contour without any kyphoscoliosis. LUNGS: Rare crackles at bases posteriorly more on left, no expiratory wheezing CARDIAC: There was a regular rate and rhythm without any murmurs, gallops, rubs. ABDOMEN: Soft and nontender with normal bowel sounds. There was no organomegaly. LYMPH NODES: No lymphadenopathy was appreciated in the neck. EXTREMITIES: No cyanosis, clubbing or edema. NEUROLOGIC: Alert and oriented x 3. Normal affect. Objective Data Vital Signs Vital Signs: Vital Signs - 2
--- NOTE | 2023-05-15 11:03 | PM.PNCARD ---
Progress Note: A&P Assessment and Plan (1) Non-ST elevation PR (NSTEMI): Code(s): I21.4 - Non-ST elevation (NSTEMI) myocardial infarction Status: Acute Assessment and Plan: Patient does have elevated troponins which are consistent with nonischemic myocardial injury due to viral myocarditis. He has had no chest pain or EKG changes. Echocardiogram was unremarkable. Cardiac catheterization showed normal coronary arteries. He is doing well, without heart failure. Okay for discharge Follow-up in 4-6 weeks after an echo to make sure there is no long-lasting injury Probably continue aspirin for general inflammation, discontinue at office visit Continue statin, beta-sue, ARB Discussed with patient (2) Hypertension: Code(s): I10 - Essential (primary) hypertension Status: Acute Assessment and Plan: near or at goal Continue losartan and metoprolol. (3) Community acquired pneumonia: Code(s): J18.9 - Pneumonia, unspecified organism Status: Acute Assessment and Plan: Continue antibiotics, follow-up with Pulmonary (4) Hypokalemia: Code(s): E87.6 - Hypokalemia Status: Acute Assessment and Plan: Replaced Subjective Date/time seen: 05/15/23 11:03 Interval history: 43-year-old admitted for elevated troponin with recent illness which appears to be consistent with a viral syndrome Date of service 05/13/2023: Patient coughed up some blood-tinged sputum this a.m.. No other new respiratory symptoms. Overall feels better. Still has no chest pain. 05/14/2023 cardiac catheterization: No CAD. Date of service 05/15/2023: Feeling well, mild cough with scant hemoptysis, no chest pain, eager for discharge. On room air. Telemetry: NSR, infrequent PVCs, brief run of SVT lasting for a few seconds Review of Systems Review of Systems: Breathing well, on room air, no chest pain, mild cough with some scant hemoptysis, slight soreness but no lump or bleeding from catheterization site. Exam Const: General: cooperative and comfortable; No confusion Orientation/consciousness: oriented to person, patient oriented x3 and No confusion Other: Morbidly obese male playing a video game, no distress Eyes: EOM: EOMs intact bilaterally Neck: Neck: supple Resp: Effort & Inspection: normal respiratory effort Auscultation: wheezes (Rare wheeze right lower lobe) Cardio: Rate: regular rate Rhythm: regular rhythm Heart sounds: no gallops, no murmurs and no rubs Other: Right dorsalis pedis pulse intact GI: Inspection: normal to inspection GI Palp: No abdominal tenderness Skin: General skin exam: normal color and no rashes or lesions noted Neuro: General: oriented to person, patient oriented x3 and No confusion Extrem: General: edema (Mild bilateral pretibial edema) Psych: Appearance: grossly normal Mental Status: mental status grossly normal Objective Data Vital Signs Vital Signs: Vital Signs - 24 hr 05/14/23 12:15 05/14/23 13:28 05/14/23 12:30 Temperature 97.4 F L Pulse Rate 56 L 61 57 L Pulse Rate [Right Pedal (Dorsalis Pedis) Palpation] Pulse Rate [Right Posterior Tibial Palpation] Respiratory Rate 18 18 18 Blood Pressure 132/71 128/81 Pulse Oximetry 99 97 98 Oxygen Delivery Room Air Room Air Room Air 05/14/23 12:45 05/14/23 13:00 05/14/23 13:39 Temperature Pulse Rate 54 L 52 L 61 Pulse Rate [Right Pedal (Dorsalis Pedis) Palpation] Pulse Rate [Right Posterior Tibial Palpation] Respiratory Rate 18 19 Blood Pressure 128/86 132/90 Pulse Oximetry 98 97 Oxygen Delivery Room Air Room Air 05/14/23 13:23 05/14/23 13:53 05/14/23 14:00 Temperature 98.7 F 98.7 F Pulse Rate 60 57 L 70 Pulse Rate [Right Pedal (Dorsalis Pedis) Palpation] Pulse Rate [Right Posterior Tibial Palpation] Respiratory Rate 20 16 Blood Pressure 129/67 134/76 Pulse Oximetry 98 99 Oxygen Delivery
[2023-05-15 18:17] LABS: Pneumococcal Antigen Urine Not Detected (Not Detected)
[2023-05-16 01:26] LABS: Legionella pneumophila Ag Ur Not Detected (Not Detected)
== END 2023-05-15 13:10 | disposition home or self-care (01) | DRG 286 ==
LOC: ANHED 21:34 → ANHIMU 05-12 03:06
PROVIDERS: Internal Medicine; Internal Medicine Cardiovascular Disease; Physician Assistant; Specialist; Admitting Provider Internal Medicine; Emergency Provider Emergency Medicine; PCP Nurse Practitioner Family; Visit Provider Internal Medicine
PROC: 4A023N7 Measurement of Cardiac Sampling and Pressure, Left Heart, Percutaneous Approach (ICD-10-PCS; CPT 93452; principal; 2023-05-14 11:30)
PROC: 4A023N7 Measurement of Cardiac Sampling and Pressure, Left Heart, Percutaneous Approach (ICD-10-PCS; 2023-05-14 11:30)
DX: I40.0 Infective myocarditis (principal); J18.9 Pneumonia, unspecified organism; I5A Non-ischemic myocardial injury (non-traumatic); Z68.43 Body mass index [BMI] 50.0-59.9, adult; R04.2 Hemoptysis; J45.41 Moderate persistent asthma with (acute) exacerbation; B34.9 Viral infection, unspecified; T17.998A Other foreign object in respiratory tract, part unspecified causing other injury, initial encounter; I10 Essential (primary) hypertension; E87.6 Hypokalemia; Z20.822 Contact with and (suspected) exposure to COVID-19; G47.33 Obstructive sleep apnea (adult) (pediatric); M19.09 Primary osteoarthritis, other specified site; M47.897 Other spondylosis, lumbosacral region; E66.01 Morbid (severe) obesity due to excess calories; D64.9 Anemia, unspecified
CPT/HCPCS: 36415; 71045; 71275; 80053; 80061; 80202; 82565; 83690; 83735; 84484; 85025; 85610; 85730; 86738; 87040; 87070; 87081; 87147; 87181; 87186; 87205; 87449; 87637; 87641; 87899; 93005; 93458; 94640; 96374; 99285; A9270; C1760; C1769; C1887; C1894; C8929; G0269; J0456; J0696; J1644; J2250; J2930; J3010; J3370; J7030; J7040; Q9957; Q9967

== ENCOUNTER 2023-05-22 14:18 | Outpatient (CLI) | payer OTHER, SELFPAY ==
--- NOTE | ~2023-05-22 | XR_ITS ---
XR chest 2V 05/22/2023 14:46 Indication: Shortness of breath Procedure: 2 view chest Comparison: Comparison to multiple prior studies sequentially, with oldest reviewed study dated 12/2009. Findings: Small left pleural effusion. Left basilar infiltrates may represent atelectasis or pneumoni a. Heart size is normal. Right lung clear. No pneumothorax or edema. No acute osseous abnormality. Impression: 1: Left basilar infiltrates may represent atelectasis or pneumonia. 2: Small left pleural effusion. Reviewed, dictated and finalized at location [facility]. ICAL DATA MANAGER Impression: 1: Left basilar infiltrates may represent atelectasis or pneumonia. 2: Small left pleural effusion.
== END 2023-05-22 14:19 | disposition home or self-care (01) ==
LOC: CHSIMG 14:19
PROVIDERS: PCP Nurse Practitioner Family; Visit Provider Nurse Practitioner Family
DX: R06.02 Shortness of breath (principal); R91.8 Other nonspecific abnormal finding of lung field; J90 Pleural effusion, not elsewhere classified
CPT/HCPCS: 71046

== ENCOUNTER 2023-06-25 13:38 | Outpatient (CLI) | payer OTHER, SELFPAY ==
--- NOTE | ~2023-06-25 | CT_ITS ---
CT Scan of the Chest without Contrast: Clinical Indication: Pneumonia Technique: Contiguous sections were acquired throughout the chest without intravenous contrast. Dose reduction technique was used on this scan by utilizing automated exposure control and iterative recon struction technique. The dose-length product (DLP) was 1074.28 mGy-cm. COMPARISON: 05/11/2023 Findings: There is no evidence of any significant mediastinal, hilar or axillary lymphadenopathy. The mediastin al soft tissues appear normal. No pericardial effusion. Minimal left pleural effusion present. No right pleural effusion.. The lungs are clear, aside from minimal basilar atelectatic change. Images through the upper abdomen reveal no abnormalities. Impression: Minimal pleural effusion with minimal left basilar atelectatic change versus minimal residual pneumon ia. Reviewed, dictated and finalized at [facility]. STO WRITER OPERATOR Impression: Minimal pleural effusion with minimal left basilar atelectatic change versus mi nimal residual pneumonia.
== END 2023-06-25 13:39 | disposition home or self-care (01) ==
LOC: CHSIMG 13:39
PROVIDERS: PCP Nurse Practitioner Family; Visit Provider Internal Medicine Pulmonary Disease
DX: J18.9 Pneumonia, unspecified organism (principal); J90 Pleural effusion, not elsewhere classified; R91.8 Other nonspecific abnormal finding of lung field
CPT/HCPCS: 71250

== ENCOUNTER 2023-06-25 14:14 | Emergency (ER) | payer OTHER, SELFPAY ==
[2023-06-25 14:15] VITALS: BP 180/78; PULSE 89; RESP 20; TEMP 36.7; O2SAT 95
--- NOTE | 2023-06-25 14:37 | ED.WOUNDLAC ---
HPI - Wound/Laceration General Chief Complaint: Wound/Laceration Stated Complaint: L leg bite Time Seen by Provider: 06/25/23 14:18 History of Present Illness HPI narrative: This is a 43-year-old male, with previous history of cellulitis, who presents to the emergency department complaining of a painful lesion to the left calf. He states the left calf had this been sore, with a area of point tenderness, rated 4/10 that has been gradually spreading over the past 2 days. He states this feels similar to previous episodes cellulitis. He denies rash elsewhere, fevers, nausea or vomiting. Related Data Home Medications Medication Instructions Recorded Confirmed albuterol sulfate 90 mcg/actuation 2 puff inhalation BID 05/11/23 06/25/23 aerosol inhaler budesonide-formoterol HFA 160 2 puff inhalation Q12H 05/24/23 06/25/23 mcg-4.5 mcg/actuation aerosol inhaler (Symbicort) Allergies Allergy/AdvReac Type Severity Reaction Status Date / Time lisinopril Allergy Intermediate Cough Verified 06/25/23 14:19 Review of Systems Review of Systems: CONSTITUTIONAL: Denies fever, chills, or sweats. CARDIOVASCULAR: Denies chest pain, palpitations, or edema. RESPIRATORY: Denies cough or dyspnea. GASTROINTESTINAL: Denies abdominal pain, nausea, vomiting, or diarrhea. GENITOURINARY: Denies dysuria or hematuria. SKIN: Painful lesion and spreading redness of the left calf Denies itching. MUSCULOSKELETAL: Denies back pain, joint pain, or myalgia. NEUROLOGIC: Denies headache, numbness, dizziness, or weakness. PSYCHIATRIC: Denies anxiety or depression. [facility] Past Medical History Medical History Bloody sputum Bulging of intervertebral disc between L4 and L5 Cellulitis 08/2017 Required hospitalization 05/2016 Required hospitalization Cigarette nicotine dependence Hypertension Lumbar nerve root compression L5 Moderate persistent asthma MRSA carrier Obstructive sleep apnea on CPAP Osteoarthritis of facet joint at L5-S1 level of lumbosacral spine Surgical History Surgical History H/O hernia repair H/O knee surgery Family History Family History Grandparent Family history of cardiovascular disease Mother Family history of cardiovascular disease Hypertension Father Family history of malignant neoplasm Social History Social History Social History: Surrogate medical decision maker: Spouse. Code status: Full code. Smoking packs per day: 1 Smoking cigarettes per day: 20.0 Smoking status: Never smoker Tobacco type: cigarettes Smokeless tobacco user: chewing tobacco Second hand tobacco smoke exposure: No Alcohol intake: current Drinks per week: 5 Alcohol use details: social Substance use: never Substance use type: marijuana Do You Feel Safe in your Home?: Yes Lack of Transportation: No Lack of Food: Never True Current Housing: I Have Housing Concerned About Future Housing: No Difficulty Paying Gas/Electric Bills: No Difficulty Paying for Meds: No Currently Unemployed: No Education: High School Diploma/GED Difficulty w/ Childcare or Family Care: No Living arrangements: with family Additional living arrangements comments: Lives with spouse and 3 daughters in [place]. 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 Spiritual care concerns: No Exam Narrative: GENERAL: Well-developed, well-nourished, and in no acute distress. HEAD: Normocephalic, atraumatic. EYES: PERRLA and EOMI. CHEST: Clear to auscultation. No respiratory distress. No wheezes rales or rhonchi HEART: Regular rate and rhythm. No murmur heard. Normal peripheral pulses. EXTREMITIES: Normal range of motion. No edema. SKIN: The
[2023-06-25 14:56] VITALS: BP 180/78; PULSE 89; RESP 20; TEMP 36.7; O2SAT 95
== END 2023-06-25 14:56 | disposition home or self-care (01) ==
LOC: CHSED 14:50
PROVIDERS: Emergency Provider Preventive Medicine Aerospace Medicine; PCP Nurse Practitioner Family
DX: L03.116 Cellulitis of left lower limb (principal); I10 Essential (primary) hypertension; F17.210 Nicotine dependence, cigarettes, uncomplicated
CPT/HCPCS: 99283

== ENCOUNTER 2023-08-21 10:55 | Outpatient (NON) | payer SELFPAY | END 2023-08-21 10:56 | disposition home or self-care (01) | LOC: CHSLAB 11:02 | PROVIDERS: Visit Provider Nurse Practitioner Family | DX: R21 Rash and other nonspecific skin eruption (principal) | CPT/HCPCS: 87070; 87075; 87147; 87181; 87205 ==

== ENCOUNTER 2024-05-20 13:11 | Outpatient (CLI) | payer OTHER, SELFPAY ==
--- NOTE | ~2024-05-20 | XR_ITS ---
Clinical Indication: Cough PA and lateral views of the chest: Comparison: 05/22/2023 Findings: The lungs are clear, without evidence of focal consolidation or pleural effusion. Cardiome diastinal silhouette is within normal limits. Bones and soft tissues are unremarkable. Impression: Normal chest. Reviewed, dictated and finalized at [facility]. T SALES REPRESENTATIVE Impression: Normal chest.
== END 2024-05-20 13:12 | disposition home or self-care (01) ==
PROVIDERS: PCP Nurse Practitioner Family; Visit Provider Nurse Practitioner Family
DX: R05.9 Cough, unspecified (principal)
CPT/HCPCS: 71046

== ENCOUNTER 2024-09-07 12:57 | Emergency (ER) | payer OTHER, SELFPAY ==
--- NOTE | ~2024-09-07 | XR_ITS ---
XR knee RT 3V 09/07/2024 13:27 Indication: Right knee pain Procedure: 3 views right knee Comparison: Comparison to multiple prior studies sequentially, with oldest reviewed study dated 06/15. Findings: Moderate osteoarthritis of the right knee. No fracture, subluxation or dislocation. No sign ificant joint effusion. Impression: 1: Moderate tricompartment osteoarthritis of the right knee. Reviewed, dictated and finalized at location A. Impression: 1: Moderate tricompartment osteoarthritis of the right knee.
--- OUTSIDE RECORDS SUMMARY | 2024-09-07 12:58 | XMS_ITS | Clinical Summary ---
Author Organization [facility] Address [facility] [place] [address] Care Team Providers Care Lumber Marker Name Role Phone Judit Ellis [facility] Primary Care Provider [phone] Allergies Active Allergy Reactions Criticality Noted Date Comments Lisinopril Cough 06/03/2020 Medications SYMBICORT 160-4.5 MCG/ACT inhaler Inhale 2 puffs into the lungs 2 (two) times daily. 07/21/2018 Active albuterol sulfate HFA (PROAIR HFA) 108 (90 Base) MCG/ACT inhaler Inhale 2 puffs into the lungs every 6 (six) hours as needed for Wheezing. Active losartan (COZAAR) 50 MG tablet 06/13/2023 Active Active Problems Problem Noted Date Diagnosed Date Acute medial meniscus tear of right knee, initia l encounter 06/10/2019 Family History Medical History Relation Comments No Known Problems Brother Lung Cancer Father No Known Problems Maternal Grandfather Heart Disease Maternal Grandmother Stroke Maternal Grandmother Anxiety Mother CHF Mother Hypertension Mother No Known Problems Paternal Grandfather No Known Problems Paternal Grandmother Mental Health Sister 1 No Known Problems Sister 2 Relation Status Comments Brother Alive Father Maternal Grandfather Maternal Grandmother Mother Alive Paternal Grandfather Paternal Grandmother Sister 1 Alive Sister 2 Alive Social History Tobacco Use Types Packs/Day Years Used Date Smoking Tobacco: Never Smokeless Tobacco: Current Chew Alcohol Use Standard Drinks/Week Comments Yes 0 (1 standard drink = 0.6 oz pur e alcohol) Occasionally Sex and Gender Information Value Date Recorded Sex Assigned at Not on file Legal Sex Male 9:58 PM FACILITY ENGINEER Gender Identity Not on file Sexual Orientation Not on file Last Filed Vital Signs Vital Sign Reading Time Taken Comments Blood Pressure 133/81 07/03/2023 1:30 PM FACILITY ENGINEER Pulse 64 07/03/2023 1:40 PM FACILITY ENGINEER Temperature 36.5 C (97.7 F) 07/03/2023 8:45 AM FACILITY ENGINEER Respiratory Rate 16 07/03/2023 8:45 AM FACILITY ENGINEER Oxygen Saturation 99% 07/03/2023 1:40 PM FACILITY ENGINEER Inhaled Oxygen Concentration - - Weight 167.8 kg (370 lb) 07/03/2023 8:45 AM FACILITY ENGINEER Height 182.9 cm (6') 07/03/2023 8:45 AM FACILITY ENGINEER Body Mass Index 50.18 07/03/2023 8:45 AM FACILITY ENGINEER Plan of Treatment Health Maintenance Due Date Last Done Comments Annual Physical 1983 DTaP, Tdap and Td Vaccines ( 2 - Tdap) 05/17/1995 05/16/1995 Hepatitis B Vaccines (3 of 3 - 3-dose series) 09/13/1995 07/19/1995, 05/16/1995 Hepatitis C 1998 COVID-19 Vaccine (2023-2 5 season) 2023 HPV Vaccines Aged Out No longer eligi ble based on patient's age to complete this topic Meningococcal B Vaccine Aged Out No l onger eligible based on patient's age to complete this topic Meningococcal Vaccine Aged Out No flavia marielos eligible based on patient's age to complete this topic Pneumococcal Vaccine: Pediatrics (0 to 5 Years) and At-Risk Patients (6 to 49 Years) Aged Out No longer eligible b ased on patient's age to complete this topic RSV Immunizations Under 20 Months Aged Out No longer eligible b ased on patient's age to complete this topic Insurance [facility] Care Teams Lumber Marker Relationship Specialty Start Date End Date Judit Ellis FNP [address] [place] [address] PCP - General NURSE PRACTITIONER 06/04/19
--- OUTSIDE RECORDS SUMMARY | 2024-09-07 12:58 | XMS_ITS | Clinical Summary ---
Author Organization [facility] [employer] Address [address] [place] [address] Care Team Providers Care Control Room Supervisor Name Role Phone Rhonda Judit Gerri CLOTH EXAMINER HAND-DIRECTOR OF DIGITAL TECHNOLOGY Primary Care Provid er Source Comments [facility],non-owned Affiliates and Associated Physician Practices is amultiple site organization consisting of ambulatory clinics and hospital sitesin [place], [place] and [place]. This disclosure is being madepursuant to the Care Everywhere program and may not contain all information available regarding this patient. Last updated 18.[facility] [employer] Allergies Active Allergy Reactions Criticality Noted Date Comments Lisinopril Cough 06/03/2020 Medications * Be aware that medications may not be up to date on this document. Alwaysverify current medications with the patient. albuterol HFA (PROVENTIL;VENT YUSEF;PROAIR) 108 (90 Base) MCG/ACT inhaler Inhale 2 (two) puffs by mouth every 6 hours as needed Active SYMBICORT 160-4.5 MCG/ACT inhaler 1 Active gabapentin (Neurontin) 300 MG capsuleIndicati ons:S/P carpal tunnel release Take 1 (one) capsule by mouth 3 times daily 90 capsule 2 3 Active Additional Information Patient not taking.Reported on 12/20/2022 Active Problems Problem Noted Date Diagnosed Date Acute medial meniscus tear of right knee 020 Social History Tobacco Use Types Packs/Day Years Used Date Smoking Tobacco: Former Cigarettes Q uit: 2018 Smokeless Tobacco: Current Chew Tobacco Cessation:Ready to Q uit: Not Asked; Counseling Given: Not Answered Alcohol Use Standard Drinks/Week Comments Yes 7 (1 standard drink = 0.6 oz pur e alcohol) AUDIT-C Answer Date Recorded Q1: How often do you have a drink containing alc ohol? Monthly or less 06/03/2020 Q2: How many drinks containi ng alcohol do you have on a typical day when you are drinking? 1 or 2 06/03/2020 Frequency of Binge Drinking Not on file 07/2020 Sex and Gender Information Value Date Recorded Sex Assigned at Not on file Legal Sex Male 7:26 PM WELT ROUGHER Gender Identity Not on file Sexual Orientation Not on file Last Filed Vital Signs Vital Sign Reading Time Taken Comments Blood Pressure 170/105 12/20/2022 12:52 PM CDT Pulse 109 12/20/2022 12:52 PM CDT Temperature 36.6 C (97.8 F) 12/20/2022 12:52 PM CDT Respiratory Rate 18 09/29/2022 4:00 PM CDT Oxygen Saturation 95% 12/20/2022 12:52 PM CDT Inhaled Oxygen Concentration 40% 09/29/2022 2 :25 PM CDT Weight 194.1 kg (428 lb) 12/20/2022 12:52 PM CDT Height 182.9 cm (6') 12/20/2022 12:52 PM CDT Body Mass Index 58.05 12/20/2022 12:52 PM CDT Plan of Treatment Health Maintenance Due Date Last Done Comments LIPID TESTING 1980 HIV SCREENING 1995 HEPATITIS C SCREENING 03/27/1998 DTAP/TDAP/TD VACCINES (1 - Tdap) 1999 HEPATITIS B VACCINE (1 of 3 - 19+ 3-dose series) 1999 COVID-19 VACCINE ( - 2023-2 5 season) 2023 DEPRESSION SCREENING 04/30/2024 INFLUENZA VACCINE (Season Ended) 2024 SCREENING FOR DIABETES 09/27/2025 09/27/2022 ZOSTER VACCINE (1 of 2) 2030 HIB VACCINE Aged Out No longer eligi ble based on patient's age to complete this topic HPV VACCINE Aged Out No longer eligi ble based on patient's age to complete this topic MENINGOCOCCAL (Group B) VACC INE SHARED DECISION-MAKING Aged Out No longer eligibl e based on patient's age to complete this topic MENINGOCOCCAL GROUPS A/C/Y/W VACCINE Aged Out No longer eligible b ased on patient's age to complete this topic PNEUMOCOCCAL VACCINE Aged Out No long er eligible based on patient's age to complete this topic Procedures Procedure Name Priority Date/Time Associated Diagnosis Comments BASIC METABOLIC PANEL (CALCIUM TOTAL) Routine 09/27/2022 11:20 AM CDT Pre-op evaluation from Last 3 Months or Most Recently Relevant to Health Maintenance Results * BASIC METABOLIC PANEL (CALCIUM TOTAL) (09/27/2022 11:20 AM CDT) BUN 9 7 - 26 mg/dL 09/27/2022 12:22 PM [facility] Creatinine 0.74 0.71 - 1.16 mg/dL 09/27/2022 12:22 PM [facility] Sodium 141 136 - 145 mmol/L 09/27/2022 12:22 PM [facility] Potassium 3.8 3.5 - 4.5 mmol/L 09/27/2022 12:22 PM [facility] Chloride 105 98 - 107 mmol/L 09/27/2022 12:22 PM [facility] CO2 25 22 - 29 mmol/L 09/27/2022 12:22 PM [facility] Glucose 93 70 - 115 mg/dL 09/27/2022 12:22 PM [facility] Calcium 8.8 8.4 - 10.2 mg/dL 09/27/2022 12:22 PM [facility] Anion Gap 15 8 - 18 09/27/2022 12:22 PM [facility] BUN/Creatinine Ratio 12 7 - 23 09/27/2022 12:22 PM [facility] Osmolality Calculated 290 270 - 300 mOsm/kg 09/27/2022 12:22 PM [facility] eGFR by CKD-EPI >90 >=90 mL/min/1.7 3 m2 09/27/2022 12:22 PM CDT [facility] Blood BLOOD SPECIMEN / Unknown Lab Venipuncture / Unknown 09/27/2022 11:20 AM CDT 09/27/2022 11:49 AM CDT Josep Manriquez MD LAB - CHEMISTRY ORDERABLES Lenore kaur Result [facility] [address] [place] [address], [facility] [phone] from Last 3 Months or Most Recently Relevant to Health Maintenance Insurance Care Teams Control Room Supervisor Relationship Specialty Start Date End Date Judit Ellis, CLOTH EXAMINER HAND-DIRECTOR OF DIGITAL TECHNOLOGY [address] [place] [address] PCP - General Nurse Practitioner Family 09/20/22
[2024-09-07 13:00] VITALS: BP 195/109; PULSE 99; RESP 20; TEMP 36.7; O2SAT 95
--- NOTE | 2024-09-07 13:05 | ED_ITS ---
HPI - Extremity Injury (Lower) General Chief Complaint: Extremity Injury, Lower Stated Complaint: knee pain Time Seen by Provider: 09/07/24 13:05 Source: patient Mode of arrival: ambulatory Limitations: no limitations History of Present Illness HPI Narrative: patient is a 44-year-old male with right knee pain for the past week. No definite injury. Patient has had trouble with this right knee since childhood. He has had 2 surgeries on the same knee for meniscus repair. Patient is morbid obesity at roughly 450 lb. complaint: other ( Right knee pain) Onset (ago): week(s) ( 1) Type of Injury: other ( no injury) Place: home Severity: severe Severity scale (1-10): 8 Relieving factors: nothing Exacerbating factors: weight bearing, movement and palpation Context: other ( no known injury) Associated symptoms: able to partially bear weight Other symptoms: none Treatments prior to arrival: NSAIDS Related Data Allergies Allergy/AdvReac Type Severity Reaction Status Date / Time lisinopril Allergy Intermediate Cough Verified 09/07/24 13:08 Review of Systems Review of Systems: All systems reviewed & are unremarkable except as noted in HPI and below Constitutional: Constitutional: Reports no additional constitutional complaints Eyes: Eyes: Reports no additional eye complaints ENT: Reports system reviewed and no additional complaints, except as documented Cardiovascular: Cardiovascular: Reports no additional cardiovascular complaints Respiratory: Respiratory: Reports no additional respiratory complaints Gastrointestinal: Gastrointestinal: Reports no additional gastrointestinal complaints Genitourinary: Genitourinary: Reports no additional male genitourinary complaints Musculoskeletal: Musculoskeletal: Reports no additional musculoskeletal complaints Integumentary/Breasts: Skin/Breast: Reports system reviewed and no additional complaints, except as docu Neurologic: Reports system reviewed and no additional complaints, except as documented Psychiatric: Psychiatric: Reports no additional psychiatric complaints Endocrine: Endocrine: Reports no additional endocrine complaints Hematologic/Lymphatic: Hematologic/Lymphatic: Reports no additional hematologic/lymphatic complaints Allergic/Immunologic: Allergic/Immunologic: Reports no additional allergic/immunologic complaints PMFSH Past Medical History Medical History Pleural effusion on left Non-ST elevation CO (NSTEMI) Obstructive sleep apnea on CPAP Bloody sputum 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 of facet joint at L5-S1 level of lumbosacral spine Lumbar nerve root compression L5 Bulging of intervertebral disc between L4 and L5 Moderate persistent asthma Cigarette nicotine dependence Cellulitis 08/2017 Required hospitalization 05/2016 Required hospitalization Surgical History Surgical History H/O hernia repair H/O knee surgery Family History Family History Grandparent Family history of cardiovascular disease Mother Family history of cardiovascular disease Hypertension Father Family history of malignant neoplasm Social History Social History Social History: Surrogate medical decision maker: Spouse. Code status: Full code. Smoking packs per day: 1 Smoking cigarettes per day: 20.0 Smoking status: Never smoker Tobacco type: cigarettes Smokeless tobacco user: chewing tobacco Second hand tobacco smoke exposure: No Alcohol intake: current Drinks per week: 5 Alcohol use details: social Substance use: never Substance use type: marijuana Do You Feel Safe in your Home?: Yes Lack of Transportation: No Lack of Food: Never True Current Housing: I Have Housing Concerned About Future Housing: No Difficulty Paying Gas/Electric Bills: No Difficulty Paying for Meds: No Currently Unemployed: No Education: High School Diploma/GED Difficulty w/ Childcare or Family Care: No Living arrangements: with family Additional living arrangements comments: Lives with spouse and 3 daughters in [place]. 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 Spiritual care concerns: No Exam Const: General: healthy appearing Nutritional Appearance: well nourished Orientation/consciousness: patient oriented x3 HENMT: Head: normal to inspection Ears: external ears normal Face/Nose/Sinus: Normal external nose present Eyes: Conjunctivae: conjunctivae normal Pupils: Equal, round and reactive pupils present EOM: EOMs intact bilaterally Neck: Neck: normal visual inspection Chest: Chest palpation & inspection: normal inspection of the chest Resp: Effort & Inspection: normal respiratory effort and not labored Auscultation: clear to auscultation bilaterally and no crackles Cardio: Rate: regular rate Rhythm: regular rhythm Heart sounds: no murmurs GI: Inspection: non-distended GI Palp: Yes Soft to palpation and No Tenderness to palpation present (GI) Auscultation: normal bowel sounds : General: Yes bladder normal to palpation Back/Spine/Pelvis: Back: no CVA tenderness Skin: General skin exam: normal color Rashes: no rashes Wounds: no wou nds Neuro: General: patient oriented x3 Cranial nerves: Yes Nystagmus not present Speech: normal speech Gait exam (Neuro): gait abnormal ( difficulty walking due to right knee pain) Extrem: General: normal to inspection Other: right knee is tender to palpation and range of motion without obvious deformity Psych: Mental Status: mental status grossly normal Affect: normal affect Attitude: cooperative Course Vital Signs Vital signs: Vital Signs Temperature 36.7 C 09/07/24 13:00 Pulse Rate 99 09/07/24 13:00 Respiratory Rate 20 09/07/24 13:00 Blood Pressure 195/109 H 09/07/24 13:00 Pulse Oximetry 95 09/07/24 13:00 Oxygen Delivery Room Air 09/07/24 13:00 Temperature 36.7 C 09/07/24 13:00 Pulse Rate 99 09/07/24 13:00 Respiratory Rate 20 09/07/24 13:00 Blood Pressure 195/109 H 09/07/24 13:00 Pulse Oximetry 95 09/07/24 13:00 Oxygen Delivery Room Air 09/07/24 13:00 MDM - Extremity Injury (Lower) MDM Narrative Medical decision making narrative: patient is a 44-year-old male with right knee pain acute on chronic issue. We will start with an x-ray of the right knee. Anayeli. Imaging Data Attestation: I personally reviewed and interpreted this imaging study as follows: Radiologist's impression: Right knee x-ray shows tricompartmental osteoarthritis and no acute process Discharge Plan Discharge Clinical Impression: Derangement of knee, right Patient Disposition: Home Condition: Stable Instructions: Knee Pain (ED) Additional Instructions: Please follow-up with the primary doctor in the next week. I suggested an MRI or orthopedic evaluation for this pain of the right knee. Patient Language: Danish Prescriptions: New oxycodone-acetaminophen [Percocet] 5-325 mg tablet 1 tablet PO Q8H PRN (Reason: pain) Qty: 20 0RF Rx Instructions: 1-2 tabs per dose No Action multivit,calc,fgi-IJ-J2-lycop [One-A-Day Men's Complete] 240 mcg-30 mcg- 300 mcg tablet 1 tablet PO DAILY Qty: 90 0RF budesonide-formoterol [Symbicort] 160-4.5 mcg/actuation HFA aerosol inhaler 2 puff inhalation Q12H Qty: 10.2 2RF Xhance 93 mcg/actuation aerosol breath activated 2 spray intranasal Q12H Qty: 16 0RF Rx Instructions: *SAMPLE* LOT:[id number] EXP: 06/28/25 [facility]: 54028-515-93 1 [address] SPRAYS GIVEN albuterol sulfate 90 mcg/actuation HFA aerosol inhaler 2 puff inhalation BID Qty: 8.5 0RF losartan 25 mg tablet 25 mg PO DAILY Qty: 90 2RF Follow-up/Referrals: Alfredo Luther APRN [Primary Care Provider] - Time of Disposition: 14:25
[2024-09-07] MEDS: HYDROcodone/acetaminophen (*CRX) 10-325 MG TABLET 1 TAB PO (13:25)
--- OUTSIDE RECORDS SUMMARY | 2024-09-07 13:33 | XMS_ITS | Clinical Summary ---
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 Gender Identity Not on file Sexual Orientation Not on file Last Filed Vital Signs Vital Sign Reading Time Taken Comments Blood Pressure 133/81 07/03/2023 1:30 PM SERVICE UNIT OPERATOR Pulse 64 07/03/2023 1:40 PM SERVICE UNIT OPERATOR Temperature 36.5 C (97.7 F) 07/03/2023 8:45 AM SERVICE UNIT OPERATOR Respiratory Rate 16 07/03/2023 8:45 AM SERVICE UNIT OPERATOR Oxygen Saturation 99% 07/03/2023 1:40 PM SERVICE UNIT OPERATOR Inhaled Oxygen Concentration - - Weight 167.8 kg (370 lb) 07/03/2023 8:45 AM SERVICE UNIT OPERATOR Height 182.9 cm (6') 07/03/2023 8:45 AM SERVICE UNIT OPERATOR Body Mass Index 50.18 07/03/2023 8:45 AM SERVICE UNIT OPERATOR Plan of Treatment Health Maintenance Due Date [...] patient's age to complete this topic Insurance [facility] Care Teams Traveling Auditor Relationship Specialty Start Date End Date Judit Ellis FNP [address] [place] [address] PCP - General NURSE PRACTITIONER 06/04/19
--- OUTSIDE RECORDS SUMMARY | 2024-09-07 13:33 | XMS_ITS | Clinical Summary ---
Author Organization [facility] [employer] Address [address] [place] [address] Care Team Providers Care Software Deployment Engineer Name Role Phone Rhonda Judit Gerri PRE PAROLE COUNSELING AIDE-SUPERVISOR COATING Primary Care Provid er Source Comments [facility],non-owned Affiliates and Associated Physician Practices is amultiple site organization consisting of ambulatory clinics and hospital sitesin [place], [place], [place] and [place]. This disclosure is being madepursuant to the Care Everywhere program and may not contain all information available regarding this patient. 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 Gender Identity Not on file Sexual Orientation [...] 7 - 26 mg/dL 09/27/2022 12:22 PM [facility] Creatinine 0.74 0.71 - 1.16 mg/dL 09/27/2022 12:22 PM [facility] Sodium 141 136 - 145 mmol/L 09/27/2022 12:22 PM [facility] Potassium 3.8 3.5 - 4.5 mmol/L 09/27/2022 12:22 PM [facility] Chloride 105 98 - 107 mmol/L 09/27/2022 12:22 PM [facility] CO2 25 22 - 29 mmol/L 09/27/2022 12:22 PM [facility] Glucose 93 70 - 115 mg/dL 09/27/2022 12:22 PM [facility] Calcium 8.8 8.4 - 10.2 mg/dL 09/27/2022 12:22 PM [facility] Anion Gap 15 8 - 18 09/27/2022 12:22 PM [facility] BUN/Creatinine Ratio 12 7 - 23 09/27/2022 12:22 PM [facility] Osmolality Calculated 290 270 - 300 mOsm/kg 09/27/2022 12:22 PM [facility] eGFR by CKD-EPI >90 >=90 mL/min/1.7 3 m2 09/27/2022 12:22 PM CDT [facility] Blood BLOOD SPECIMEN / Unknown Lab Venipuncture / Unknown 09/27/2022 11:20 AM CDT 09/27/2022 11:49 AM CDT Josep Manriquez MD LAB - CHEMISTRY ORDERABLES Lenore kaur Result [facility] [address] [place] [address], [facility] [phone] from Last 3 Months or Most Recently Relevant to Health Maintenance Insurance Care Teams Software Deployment Engineer Relationship Specialty Start Date End Date Judit Ellis, PRE PAROLE COUNSELING AIDE-SUPERVISOR COATING [address] [place] [address] PCP - General Nurse Practitioner Family 09/20/22
[2024-09-07 14:36] VITALS: BP 180/101; PULSE 72; RESP 20; TEMP 37.1; O2SAT 95
[2024-09-07 14:50] VITALS: BP 177/102; PULSE 71; RESP 20; TEMP 36.9; O2SAT 96
== END 2024-09-07 14:50 | disposition home or self-care (01) ==
PROVIDERS: Emergency Provider Emergency Medicine; PCP Nurse Practitioner Family
DX: M23.91 Unspecified internal derangement of right knee (principal); I25.2 Old myocardial infarction
CPT/HCPCS: 73562; 99283; A9270

== ENCOUNTER 2024-09-09 10:45 | Outpatient (CLI) | payer OTHER, SELFPAY ==
[2024-09-09 11:00] LABS: Basophils Absolute Auto 0.03 K/mm3 (0.00-0.10); Basophils Percent Auto 0.5 % (0.0-1.0); Eosinophils Absolute Auto 0.16 K/mm3 (0.02-0.50); Eosinophils Percent Auto 2.7 % (1.0-6.0); Hematocrit 44.2 % (40.0-54.0); Hemoglobin 13.3 g/dL (14.0-18.0); Immature Granulocyte Absolute 0.03 K/mm3 (0.00-0.00); Immature Granulocyte Percent A 0.5 % (0.0-0.0); Lymphocytes Absolute Auto 0.94 K/mm3 (1.10-4.50); Mean Corpuscular HGB Conc 30.1 g/dL (32-36); Mean Corpuscular Hemoglobin 26.1 pg (27.0-31.0); Mean Corpuscular Volume 86.8 fL (78.0-102.0); Mean Platelet Volume 10.8 fl (8.7-11.0); Monocytes Absolute Auto 0.56 K/mm3 (0.10-0.90); Monocytes Percent Auto 9.6 % (2.0-11.0); Neutrophils Absolute Auto 4.14 K/mm3 (1.70-7.20); Neutrophils Percent Auto 70.7 % (50.0-70.0); Platelet Count Result 178 K/mm3 (150-420); Red Blood Count 5.09 M/mm3 (4.70-6.10); Red Cell Distribution Width 14.7 % (11.6-14.4); White Blood Count 5.9 K/mm3 (4.8-10.8)
--- OUTSIDE RECORDS SUMMARY | 2024-09-09 11:03 | XMS_ITS | Clinical Summary ---
Author Organization [facility] Address [facility] [place] [address] Care Team Providers Care Government Professor Name Role Phone Judit Ellis [facility] Primary Care Provider [phone] Allergies Active Allergy Reactions Criticality Noted Date [...] on file Legal Sex Male 9:58 PM AMMONIUM HYDROXIDE OPERATOR Gender Identity Not on file Sexual Orientation Not on file Last Filed Vital Signs Vital Sign Reading Time Taken Comments Blood Pressure 133/81 07/03/2023 1:30 PM AMMONIUM HYDROXIDE OPERATOR Pulse 64 07/03/2023 1:40 PM AMMONIUM HYDROXIDE OPERATOR Temperature 36.5 C (97.7 F) 07/03/2023 8:45 AM AMMONIUM HYDROXIDE OPERATOR Respiratory Rate 16 07/03/2023 8:45 AM AMMONIUM HYDROXIDE OPERATOR Oxygen Saturation 99% 07/03/2023 1:40 PM AMMONIUM HYDROXIDE OPERATOR Inhaled Oxygen Concentration - - Weight 167.8 kg (370 lb) 07/03/2023 8:45 AM AMMONIUM HYDROXIDE OPERATOR Height 182.9 cm (6') 07/03/2023 8:45 AM AMMONIUM HYDROXIDE OPERATOR Body Mass Index 50.18 07/03/2023 8:45 AM AMMONIUM HYDROXIDE OPERATOR Plan of Treatment Health Maintenance Due [...] patient's age to complete this topic Insurance [facility] Care Teams Government Professor Relationship Specialty Start Date End Date Judit Ellis FNP [address] [place] [address] PCP - General NURSE PRACTITIONER 06/04/19
--- OUTSIDE RECORDS SUMMARY | 2024-09-09 11:03 | XMS_ITS | Clinical Summary ---
Author Organization [facility] [employer] Address [address] [place] [address] Care Team Providers Care Boot Turner Name Role Phone Sheldonyefri Judit Gerri CLINICAL PHARMACIST-MICROSOFT APPLICATION DEVELOPER Primary Care Provid er Source Comments [facility],non-owned Affiliates and Associated Physician Practices is amultiple site organization consisting of ambulatory clinics and hospital sitesin [place], [place], [place] and [place]. This disclosure is being madepursuant to the Care Everywhere program and may not contain all information available regarding this patient. 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 Gender Identity Not on file Sexual [...] 7 - 26 mg/dL 09/27/2022 12:22 PM [facility] Creatinine 0.74 0.71 - 1.16 mg/dL 09/27/2022 12:22 PM [facility] Sodium 141 136 - 145 mmol/L 09/27/2022 12:22 PM [facility] Potassium 3.8 3.5 - 4.5 mmol/L 09/27/2022 12:22 PM [facility] Chloride 105 98 - 107 mmol/L 09/27/2022 12:22 PM [facility] CO2 25 22 - 29 mmol/L 09/27/2022 12:22 PM [facility] Glucose 93 70 - 115 mg/dL 09/27/2022 12:22 PM [facility] Calcium 8.8 8.4 - 10.2 mg/dL 09/27/2022 12:22 PM [facility] Anion Gap 15 8 - 18 09/27/2022 12:22 PM [facility] BUN/Creatinine Ratio 12 7 - 23 09/27/2022 12:22 PM [facility] Osmolality Calculated 290 270 - 300 mOsm/kg 09/27/2022 12:22 PM [facility] eGFR by CKD-EPI >90 >=90 mL/min/1.7 3 m2 09/27/2022 12:22 PM CDT [facility] Blood BLOOD SPECIMEN / Unknown Lab Venipuncture / Unknown 09/27/2022 11:20 AM CDT 09/27/2022 11:49 AM CDT Josep Manriquez MD LAB - CHEMISTRY ORDERABLES Lenore kaur Result [facility] [address] [place] [address], [facility] [phone] from Last 3 Months or Most Recently Relevant to Health Maintenance Insurance Care Teams Boot Turner Relationship Specialty Start Date End Date Judit Ellis, CLINICAL PHARMACIST-MICROSOFT APPLICATION DEVELOPER [address] [place] [address] PCP - General Nurse Practitioner Family 09/20/22
[2024-09-09 11:14] LABS: Hemoglobin A1C 5.8 % (<5.7)
[2024-09-09 12:23] LABS: Alanine Aminotransferase 28 U/L (6-50); Alkaline Phosphatase 60 U/L (38-126); Anion Gap 6 mmol/L (4-12); Aspartate Amino Transferase 29 U/L (17-59); Bilirubin,Total 0.6 mg/dL (0.2-1.3); Blood Urea Nitrogen 14 mg/dL (9-20); Carbon Dioxide 31 mmol/L (22-30); Chloride 102 mmol/L (98-107); Cholesterol 173 mg/dL (0-200); Estimated Glomerular Filt Rate > 60; Glucose 83 mg/dL (65-110); HDL Direct 33 mg/dL; Iron 67 ug/dL (49-181); LDL Cholesterol Calculated 116 mg/dL (<130); Osmolality Calculated 287 mOsm/kg (285-295); Potassium 4.4 mmol/L (3.4-5.0); Sodium 139 mmol/L (137-145); Total Protein 6.8 g/dL (6.3-8.2); Triglycerides 122 mg/dL (<150)
[2024-09-09 12:33] LABS: Percent Iron Saturation 17 % (12-57)
[2024-09-10 15:09] LABS: Parathyroid Intact 28 pg/mL (16-77)
[2024-09-10 18:29] LABS: Vitamin D 25 Hydroxy 22 ng/mL (30-100)
== END 2024-09-09 10:46 | disposition home or self-care (01) ==
LOC: CHSLAB 10:47
PROVIDERS: PCP Nurse Practitioner Family; Visit Provider Nurse Practitioner Family
DX: E66.01 Morbid (severe) obesity due to excess calories (principal)
CPT/HCPCS: 36415; 80053; 80061; 82306; 82330; 82607; 82728; 83036; 83540; 83550; 83970; 84443; 85025

== ENCOUNTER 2024-09-20 07:03 | Outpatient (CLI) | payer OTHER, SELFPAY ==
--- OUTSIDE RECORDS SUMMARY | 2024-09-20 07:05 | XMS_ITS | Clinical Summary ---
Author Organization [facility] [employer] Address [address] [place] [address] Care Team Providers Care Pathology Laboratory Technologist Name Role Phone Sheldonyefri Judit Gerri CLINICAL SUPERVISOR-FORGESMITH Primary Care Provid er Source Comments [facility],non-owned Affiliates and Associated Physician Practices is amultiple site organization consisting of ambulatory clinics and hospital sitesin [place] and [place]. This disclosure is being madepursuant to the Care Everywhere program and may not contain all information available regarding this patient. Last updated 18.[facility] [employer] Allergies Active Allergy Reactions Criticality Noted Date [...] on file Legal Sex Male 7:26 PM INDIAN NANNY Gender Identity Not on file Sexual Orientation [...] 7 - 26 mg/dL 09/27/2022 12:22 PM [facility] Creatinine 0.74 0.71 - 1.16 mg/dL 09/27/2022 12:22 PM [facility] Sodium 141 136 - 145 mmol/L 09/27/2022 12:22 PM [facility] Potassium 3.8 3.5 - 4.5 mmol/L 09/27/2022 12:22 PM [facility] Chloride 105 98 - 107 mmol/L 09/27/2022 12:22 PM [facility] CO2 25 22 - 29 mmol/L 09/27/2022 12:22 PM [facility] Glucose 93 70 - 115 mg/dL 09/27/2022 12:22 PM [facility] Calcium 8.8 8.4 - 10.2 mg/dL 09/27/2022 12:22 PM [facility] Anion Gap 15 8 - 18 09/27/2022 12:22 PM [facility] BUN/Creatinine Ratio 12 7 - 23 09/27/2022 12:22 PM [facility] Osmolality Calculated 290 270 - 300 mOsm/kg 09/27/2022 12:22 PM [facility] eGFR by CKD-EPI >90 >=90 mL/min/1.7 3 m2 09/27/2022 12:22 PM CDT [facility] Blood BLOOD SPECIMEN / Unknown Lab Venipuncture / Unknown 09/27/2022 11:20 AM CDT 09/27/2022 11:49 AM CDT Josep Manriquez MD LAB - CHEMISTRY ORDERABLES Lenore kaur Result [facility] [address] [place] [address], [facility] [phone] from Last 3 Months or Most Recently Relevant to Health Maintenance Insurance Care Teams Pathology Laboratory Technologist Relationship Specialty Start Date End Date Judit Ellis, CLINICAL SUPERVISOR-FORGESMITH [address] [place] [address] PCP - General Nurse Practitioner Family 09/20/22
== END 2024-09-20 07:04 | disposition home or self-care (01) ==
LOC: CHSIMG 07:04
PROVIDERS: PCP Nurse Practitioner Family; Visit Provider Nurse Practitioner Family
DX: M17.11 Unilateral primary osteoarthritis, right knee (principal)
CPT/HCPCS: 99199

== ENCOUNTER 2025-01-31 11:02 | Outpatient (CLI) | payer OTHER, SELFPAY ==
--- OUTSIDE RECORDS SUMMARY | 2025-01-31 11:06 | XMS_ITS | Clinical Summary ---
Author Organization [facility] Address [facility] [place] [address] Care Team Providers Care Tectonophysicist Name Role Phone Judit Ellis [facility] Primary Care Provider [phone] [phone] Allergies Active Allergy Reactions Criticality Noted Date [...] on file Legal Sex Male 9:58 PM INDEPENDENT LIVING SPECIALIST Gender Identity Not on file Sexual Orientation Not on file Last Filed Vital Signs Vital Sign Reading Time Taken Comments Blood Pressure 133/81 07/03/2023 1:30 PM INDEPENDENT LIVING SPECIALIST Pulse 64 07/03/2023 1:40 PM INDEPENDENT LIVING SPECIALIST Temperature 36.5 C (97.7 F) 07/03/2023 8:45 AM INDEPENDENT LIVING SPECIALIST Respiratory Rate 16 07/03/2023 8:45 AM INDEPENDENT LIVING SPECIALIST Oxygen Saturation 99% 07/03/2023 1:40 PM INDEPENDENT LIVING SPECIALIST Inhaled Oxygen Concentration - - Weight 167.8 kg (370 lb) 07/03/2023 8:45 AM INDEPENDENT LIVING SPECIALIST Height 182.9 cm (6') 07/03/2023 8:45 AM INDEPENDENT LIVING SPECIALIST Body Mass Index 50.18 07/03/2023 8:45 AM INDEPENDENT LIVING SPECIALIST Plan of Treatment Health Maintenance Due Date Last Done Comments Annual Physical 1983 DTaP, Tdap and Td Vaccines ( 2 - Tdap) 05/17/1995 05/16/1995 Hepatitis B Vaccines (3 of 3 - 3-dose series) 09/13/1995 07/19/1995, 05/16/1995 Hepatitis C 1998 HPV Vaccines (1 - 3-dose SCD M series) 2007 COVID-19 Vaccine (2023-2 5 season) 2024 Meningococcal B Vaccine Aged Out No l [...] patient's age to complete this topic Insurance [facility] Care Teams Tectonophysicist Relationship Specialty Start Date End Date Judit Ellis, YANCI [address] [place] [address] PCP - General NURSE PRACTITIONER 06/04/19
--- OUTSIDE RECORDS SUMMARY | 2025-01-31 11:06 | XMS_ITS | Clinical Summary ---
Author Organization [facility] [employer] Address [address] [place] [address] Care Team Providers Care Nutrition Instructor Name Role Phone Sheldonyefri Judit Gerri PICKING TABLE WORKER-REHAB CONSULTANT Primary Care Provid er Source Comments [facility],non-owned Affiliates and Associated Physician Practices is amultiple site organization consisting of ambulatory clinics and hospital sitesin [place], [place], [place] and [place]. This disclosure is being madepursuant to the Care Everywhere program and may not contain all information available regarding this patient. Last updated 18.[facility] [employer] Allergies Active Allergy Reactions Criticality Noted Date [...] on file Legal Sex Male 7:26 PM POOL COORDINATOR Gender Identity Not on file Sexual Orientation [...] of 3 - 19+ 3-dose series) 1999 HPV VACCINE (1 - 3-dose SCDM series) 2007 DEPRESSION SCREENING 04/30/2024 COVID-19 VACCINE (1 - 2023-2 5 season) 2024 INFLUENZA VACCINE (#1) 2024 SCREENING FOR DIABETES 09/27/2025 09/27/2022 ZOSTER [...] 7 - 26 mg/dL 09/27/2022 12:22 PM [facility] Creatinine 0.74 0.71 - 1.16 mg/dL 09/27/2022 12:22 PM [facility] Sodium 141 136 - 145 mmol/L 09/27/2022 12:22 PM [facility] Potassium 3.8 3.5 - 4.5 mmol/L 09/27/2022 12:22 PM [facility] Chloride 105 98 - 107 mmol/L 09/27/2022 12:22 PM [facility] CO2 25 22 - 29 mmol/L 09/27/2022 12:22 PM [facility] Glucose 93 70 - 115 mg/dL 09/27/2022 12:22 PM [facility] Calcium 8.8 8.4 - 10.2 mg/dL 09/27/2022 12:22 PM [facility] Anion Gap 15 8 - 18 09/27/2022 12:22 PM [facility] BUN/Creatinine Ratio 12 7 - 23 09/27/2022 12:22 PM [facility] Osmolality Calculated 290 270 - 300 mOsm/kg 09/27/2022 12:22 PM [facility] eGFR by CKD-EPI >90 >=90 mL/min/1.7 3 m2 09/27/2022 12:22 PM [facility] Blood BLOOD SPECIMEN / Unknown Lab Venipuncture / Unknown 09/27/2022 11:20 AM CDT 09/27/2022 11:49 AM CDT Josep Manriquez MD LAB - CHEMISTRY ORDERABLES Lenore kaur Result [facility] [address] [place] [address], [facility] [phone] from Last 3 Months or Most Recently Relevant to Health Maintenance Insurance Care Teams Nutrition Instructor Relationship Specialty Start Date End Date Judit Ellis, PICKING TABLE WORKER-REHAB CONSULTANT [address] [place] [address] PCP - General Nurse Practitioner Family 09/20/22
== END 2025-01-31 11:03 | disposition home or self-care (01) ==
LOC: CHSLAB 11:04
PROVIDERS: PCP Nurse Practitioner Family; Visit Provider Nurse Practitioner Family
DX: E66.01 Morbid (severe) obesity due to excess calories (principal); Z76.89 Persons encountering health services in other specified circumstances
CPT/HCPCS: 83013

== ENCOUNTER 2025-02-08 15:11 | Emergency (ER) | payer OTHER, SELFPAY ==
--- NOTE | ~2025-02-08 | XR_ITS ---
EXAMINATION: XR knee LT 3V, 02/08/2025 15:20 CDT HISTORY: posterior Lt. knee pain x1 week; worsening x1 day. NKI COMPARISON: No comparisons available. Findings: No acute fracture or malalignment. Moderate to severe tricompartmental degenerative changes with small effusion Soft tissues unremarkable. Impression: No acute fracture or malalignment. Reviewed, dictated and finalized at location P. Impression: No acute fracture or malalignment.
--- NOTE | 2025-02-08 15:21 | ED.LOWEXIN ---
HPI - Extremity Injury (Lower) General Chief Complaint: Extremity Problem,Nontraumatic Stated Complaint: left knee pain Time Seen by Provider: 02/08/25 15:21 Source: patient and family Mode of arrival: wheelchair Limitations: no limitations History of Present Illness HPI Narrative: Patient is a 44-year-old male with left knee and left posterior knee pain and swelling over the past week. Patient had infection of the left lower leg about a month ago that is healed at this time. He has not been very active lately. He is a morbid obese fell a at 450 lb roughly and is not very active. No history of DVTs. No history of knee pain. MD complaint: other (Left knee pain anterior and posterior without injury) Type of Injury: other (No injury) Place: home Severity: moderate Severity scale (1-10): 5 Relieving factors: nothing Exacerbating factors: weight bearing, movement and palpation Context: other (No particular injury) Associated symptoms: swelling and unable to bear weight Other symptoms: none Treatments prior to arrival: NSAIDS Related Data Allergies Allergy/AdvReac Type Severity Reaction Status Date / Time lisinopril Allergy Intermediate Cough Verified 02/08/25 16:30 Review of Systems Review of Systems: All systems reviewed & are unremarkable except as noted in HPI and below Constitutional: Constitutional: Reports no additional constitutional complaints Eyes: Eyes: Reports no additional eye complaints ENT: Reports system reviewed and no additional complaints, except as documented Cardiovascular: Cardiovascular: Reports no additional cardiovascular complaints Respiratory: Respiratory: Reports no additional respiratory complaints Gastrointestinal: Gastrointestinal: Reports no additional gastrointestinal complaints Genitourinary: Genitourinary: Reports no additional male genitourinary complaints Musculoskeletal: Musculoskeletal: Reports no additional musculoskeletal complaints Integumentary/Breasts: Skin/Breast: Reports system reviewed and no additional complaints, except as docu Neurologic: Reports system reviewed and no additional complaints, except as documented Psychiatric: Psychiatric: Reports no additional psychiatric complaints Endocrine: Endocrine: Reports no additional endocrine complaints Hematologic/Lymphatic: Hematologic/Lymphatic: Reports no additional hematologic/lymphatic complaints Allergic/Immunologic: Allergic/Immunologic: Reports no additional allergic/immunologic complaints PMFSH Past Medical History Medical History Pleural effusion on left Non-ST elevation ID (NSTEMI) Obstructive sleep apnea on CPAP Bloody sputum 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 of facet joint at L5-S1 level of lumbosacral spine Lumbar nerve root compression L5 Bulging of intervertebral disc between L4 and L5 Moderate persistent asthma Cigarette nicotine dependence Cellulitis 08/2017 Required hospitalization 05/2016 Required hospitalization Surgical History Surgical History H/O hernia repair H/O knee surgery Family History Family History Grandparent Family history of cardiovascular disease Mother Family history of cardiovascular disease Hypertension Father Family history of malignant neoplasm Social History Social History Social History: Surrogate medical decision maker: Spouse. Code status: Full code. Smoking packs per day: 1 Smoking cigarettes per day: 20.0 Smoking status: Never smoker Tobacco type: cigarettes Smokeless tobacco user: chewing tobacco Second hand tobacco smoke exposure: No Alcohol intake: current Drinks per week: 5 Alcohol use details: social Substance use: never Substance use type: marijuana Do You Feel Safe in your Home?: Yes Lack of Transportation: No Lack of Food: Never True Current Housing: I Have Housing Concerned About Future Housing: No Difficulty Paying Gas/Electric Bills: No Difficulty Paying for Meds: No Currently Unemployed: No Education: High School Diploma/GED Difficulty w/ Childcare or Family Care: No Living arrangements: with family Additional living arrangements comments: Lives with spouse and 3 daughters in [place]. 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 Spiritual care concerns: No Exam Const: General: healthy appearing Nutritional Appearance: well nourished and obese Orientation/consciousness: patient oriented x3 HENMT: Head: normal to inspection Ears: external ears normal Face/Nose/Sinus: Normal external nose present Eyes: Conjunctivae: conjunctivae normal Pupils: Equal, round and reactive pupils present EOM: EOMs intact bilaterally Neck: Neck: normal visual inspection Chest: Chest palpation & inspection: normal inspection of the chest Resp: Effort & Inspection: normal respiratory effort and not labored Auscultation: clear to auscultation bilaterally and no crackles Cardio: Rate: regular rate Rhythm: regular rhythm Heart sounds: no murmurs GI: Inspection: non-distended GI Palp: Yes Soft to palpation and No Tenderness to palpation present (GI) Auscultation: normal bowel sounds : General: Yes bladder normal to palpation Back/Spine/Pelvis: Back: no CVA tenderness Skin: General skin exam: normal color Rashes: no rashes Wounds: no wounds Neuro: General: patient oriented x3, moves all extremities and no meningeal signs Extrem: General: abnormal to inspection, clubbing, cyanosis or edema noted, pedal edema present and edema Other: Left lower extremity specifically posterior knee and calf are swollen more so than the right and there is some redness; equivocal Homans test Psych: Mental Status: mental status grossly normal Affect: normal affect Attitude: cooperative Course Vital Signs Vital signs: Vital Signs Pulse Rate 80 02/08/25 16:29 Respiratory Rate 20 02/08/25 16:29 Blood Pressure 179/96 H 02/08/25 16:29 Pulse Oximetry 98 02/08/25 16:29 Oxygen Delivery Room Air 02/08/25 16:29 Pulse Rate 80 02/08/25 16:29 Respiratory Rate 20 02/08/25 16:29 Blood Pressure 179/96 H 02/08/25 16:29 Pulse Oximetry 98 02/08/25 16:29 Oxygen Delivery Room Air 02/08/25 16:29 MDM - Extremity Injury (Lower) MDM Narrative Medical decision making narrative: Patient is a 44-year-old male with left lower extremity swelling and pain over the past week. X-ray. Negative x-ray. We will proceed with ER to ER at [place] for ultrasound. Imaging Data Attestation: I personally reviewed and interpreted this imaging study as follows: Radiologist's impression: X-ray left knee was negative for acute process Discharge Plan Discharge Clinical Impression: Left leg swelling Patient Disposition: Acute Care Hospital Condition: Stable Patient Language: Cambodian Prescriptions: No Action losartan 25 mg tablet 25 mg PO BID Qty: 90 2RF budesonide-formoterol 160-4.5 mcg/actuation HFA aerosol inhaler See Rx Instructions .ROUTE .COMPLEX Qty: 10.2 2RF Dose Instruction: INHALE 2 PUFFS EVERY 12 HOURS Rx Instructions: INHALE 2 PUFFS EVERY 12 HOURS albuterol sulfate 90 mcg/actuation HFA aerosol inhaler See Rx Instructions .ROUTE .COMPLEX Qty: 6.7 2RF Dose Instruction: INHALE 2 PUFFS TWICE A DAY Rx Instructions: INHALE 2 PUFFS TWICE A DAY Follow-up/Referrals: Luther,Ajin, PUG MILL OPERATOR [Primary Care Provider, [facility]] Time of Disposition: 17:41
[2025-02-08 16:29] VITALS: BP 179/96; PULSE 80; RESP 20; O2SAT 98
[2025-02-08] MEDS: HYDROcodone/acetaminophen (*CRX) 10-325 MG TABLET 1 TAB PO (18:16)
--- NOTE | 2025-02-08 19:02 | PC.NURSE ---
dr honeycutt speaking to pt and regarding trasnfer to [facility]. awaiting call back from gill. pt resting per wheel chair.
--- NOTE | 2025-02-08 19:08 | PC.NURSE ---
report to whitney hartman . continues to complaint of 02/06
[2025-02-08] MEDS: HYDROmorphone HCL INJ (*CRX) 2 MG/ML VIAL 1 MG IM (19:17)
[2025-02-08 19:45] VITALS: BP 158/90; PULSE 81; RESP 18; TEMP 36.2; O2SAT 96
--- NOTE | 2025-02-08 19:45 | PC.NURSE ---
Pt in w/c, called report to Allyson Martinez pt will go directly to ED at [facility] via POV.
== END 2025-02-08 19:50 | disposition short-term general hospital (02) ==
PROVIDERS: Emergency Provider Emergency Medicine; PCP Nurse Practitioner Family
DX: M79.89 Other specified soft tissue disorders (principal)
CPT/HCPCS: 73562; 96372; 99283; A9270; J1171

== ENCOUNTER 2025-02-14 07:45 | Outpatient (CLI) | payer OTHER, SELFPAY ==
--- NOTE | ~2025-02-14 | MR_ITS ---
EXAMINATION: MR knee LT wo/w con DATE: 02/14/2025 08:58 INDICATION: Left knee pain. TECHNIQUE: Magnetic resonance imaging (MRI) of the left knee knee was performed without and with 20 mL MultiHance intravenous contrast. COMPARISON: Left knee radiographs 02/08/2025 FINDINGS: Medial compartment: Medial meniscus is normal. There is partial-thickness cartilage loss of femoral condyle, deep at the central, medial, and posterior articular surface with mild subchondral edema-like marrow signal intensity. There is shallow partial- thickness cartilage loss of tibial condyle with mild subchondral edema-like marrow signal intensity posteriorly. Osteophytes are noted. Lateral compartment: Lateral collateral ligament is normal. There is shallow partial-thickness cartilage loss of tibial condyle and femoral condyle. Osteophytes are noted. Patellofemoral compartment: There is shallow partial-thickness cartilage loss of patellar medial and lateral facets and median ridge. There is deep partial-thickness cartilage loss of medial, central, and lateral trochlea. Osteophytes are noted. Ligaments and tendons: The anterior and posterior cruciate ligaments are normal. There are changes of prior sprains of medial collateral ligament and lateral collateral ligament characterized by increased signal intensity proximally. There is moderate patellar tendinopathy. Fluid: There is a moderate-sized knee joint effusion with synovitis. There is a small Stoll's cyst with synovitis. There is moderate prepatellar and superficial infrapatellar bursitis. IMPRESSION: 1. Moderate chondrosis of medial and patellofemoral compartments and mild chondrosis of lateral compartment. 2. Moderate-sized knee joint effusion. 3. Small Stoll's cyst. Reviewed, dictated and finalized at location E. IMPRESSION: 1. Moderate chondrosis of medial and patellofemoral compartments and mild chond rosis of lateral compartment. 2. Moderate-sized knee joint effusion. 3. Small Stoll's cyst.
--- OUTSIDE RECORDS SUMMARY | 2025-02-14 07:47 | XMS_ITS | Clinical Summary ---
Author Organization [facility] Address [address] [place] [address] Care Team Providers Care Pile Fabric Knitter Name Role Phone Judit Ellis [facility] Primary Care Provider [phone] Allergies Active Allergy Reactions Criticality Noted Date Comments Lisinopril Cough 06/03/2020 Medications SYMBICORT 160-4.5 MCG/ACT inhaler Inhale 2 puffs into the lungs 2 (two) times daily. 07/21/2018 Active albuterol sulfate HFA (PROAIR HFA) 108 (90 Base) MCG/ACT inhaler Inhale 2 puffs into the lungs every 6 (six) hours as needed for Wheezing. Active losartan (COZAAR) 50 MG tablet 06/13/2023 Active HYDROcodone-acet aminophen (NORCO) 5-325 MG tabletIndication s:Acute Pain < 3 Day Supply Take 1 tablet by mouth every 6 (six) hours as needed. Indications : Acute Pain < 3 Day Supply 12 tablet 02/09/2025 Active Active Problems Problem Noted Date Diagnosed Date Acute medial meniscus tear of right knee, initia l encounter 06/10/2019 Encounters Date Type Department Care Team Description 02/08/2025 11:57 PM CDT - 02/09/2025 3:[address] 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 Gender Identity Male 02/08/2025 9:46 PM CDT Sexual Orientation Not on file Last Filed Vital Signs Vital Sign Reading Time Taken Comments Blood Pressure 132/90 02/09/2025 3:30 AM CDT Pulse 80 02/09/2025 3:30 AM CDT Temperature 36.7 C (98.1 F) 02/08/2025 9:47 PM CDT Respiratory Rate 20 02/09/2025 3:30 AM CDT Oxygen Saturation 99% 02/09/2025 3:30 AM CDT Inhaled Oxygen Concentration - - Weight 199.6 kg (440 lb) 02/08/2025 9:47 PM CDT Height 180.3 cm (5' 11) 02/08/2025 9:47 PM CDT Body Mass Index 61.37 02/08/2025 9:47 PM CDT Plan of Treatment Health Maintenance Due Date Last Done Comments Annual Physical 1983 DTaP, Tdap and Td Vaccines ( 2 - Tdap) 05/17/1995 05/16/1995 Hepatitis B Vaccines (3 of 3 - 3-dose series) 09/13/1995 07/19/1995, 05/16/1995 Hepatitis C 1998 HPV Vaccines (1 - 3-dose SCD M series) 2007 COVID-19 Vaccine (2023-2 5 season) 2024 Influenza Adult (#1) 2025 04/30/2017 Hepatitis A Vaccines Aged Out No long er eligible based [...] Procedure Name Priority Date/Time Associated Diagnosis Comments CBC W/DIFF AUTOMATED STAT 02/09/2025 12:38 AM CDT C-REACTIVE PROTEIN STAT 02/09/2025 12 :38 AM CDT SED RATE, ERYTHROCYTE (ESR) STAT 02/09/2025 12:38 AM CDT US KIRSTEN DUPLEX LOW EXT LT STAT 02/09/2025 12:35 AM CDT from Last 3 Months Results * (ABNORMAL) SED RATE, ERYTHROCYTE (ESR,WSR) (02/09/2025 12:38 AM CDT) ESR 59(H) 0 - 15 MM/HR 02/09/2025 1:12 AM CDT [facility] 02/09/2025 12:3 8 AM CDT us Sp Mon MD LABORATORY Final Result [facility] [address] [place] [address], [id number] * (ABNORMAL) C-REACTIVE PROTEIN (02/09/2025 12:38 AM CDT) C-REACTIVE PROTEIN 2.35(H) <0.80 mg/dL 02/09/2025 2:24 AM CDT [facility] 02/09/2025 12:3 8 AM CDT us Sp Mon MD LABORATORY Final Result [facility] [address] [place] [address], [id number] * (ABNORMAL) CBC W/DIFF AUTOMATED (02/09/2025 12:38 AM CDT) WBC 7.20 4.00 - 10.80 x10'3/uL 02/09/2025 3:16 AM CDT [facility] RBC 5.07 4.50 - 6.10 x10'6/uL 02/09/2025 3:16 AM CDT [facility] HGB 13.9 13.0 - 18.0 G/DL 02/09/2025 3:16 AM CDT [facility] HCT 44.7 37.0 - 52.0 % 02/09/2025 3:16 AM CDT [facility] MCV 88.2 78.0 - 100.0 FL 02/09/2025 3:16 AM CDT [facility] MCH 27.4 27.0 - 31.0 PG 02/09/2025 3:16 AM CDT [facility] MCHC 31.1(L) 33.0 - 36.0 G/DL 02/09/2025 3:16 AM CDT [facility] RDW 14.6(H) 11.5 - 14.5 % 02/09/2025 3:16 AM CDT [facility] PLT 193 150 - 350 x10'3/uL 02/09/2025 3:16 AM CDT [facility] MPV 11.3(H) 7.4 - 10.4 FL 02/09/2025 3:16 AM CDT [facility] DIFFERENTIAL TYPE AUTOMATED DIFFERENTIAL 02/09/2025 3:16 AM CDT [facility] SEG NEUTROPHILS 71.5 % 3:16 AM CDT [facility] LYMPHOCYTES 16.9 % 02/09/2025 3:16 AM CDT [facility] MONOCYTES 8.8 % 02/09/2025 3:16 AM CDT [facility] EOSINOPHILS 2.1 % 02/09/2025 3:16 AM CDT [facility] BASOPHILS 0.4 % 02/09/2025 3:16 AM CDT [facility] IMMATURE GRANS % 0.3 % 02/10/20 3:16 AM CDT [facility] ABS. NEUTROPHILS 5.15 1.60 - 8.30 x10'3/uL 02/09/2025 3:16 AM CDT [facility] ABS. LYMPHOCYTES 1.22 0.80 - 4.70 x10'3/uL 02/09/2025 3:16 AM CDT [facility] ABS. MONOCYTES 0.63 0.00 - 1.50 x10'3/uL 02/09/2025 3:16 AM CDT [facility] ABS. EOSINOPHILS 0.15 0.00 - 0.40 x10'3/uL 02/09/2025 3:16 AM CDT [facility] ABS. BASOPHILS 0.03 0.00 - 0.20 x10'3/uL 02/09/2025 3:16 AM CDT [facility] ABS. IMMATURE GRANULOCYTES 0.02 0.00 - 0.03 x10'3/uL 02/09/2025 3:16 AM CDT [facility] ABS. NUCLEATED RBC'S 0.00 0.00 - 0.01 x10'3/uL 02/09/2025 3:16 AM CDT [facility] NRBC % 0.0 % 02/09/2025 3:16 AM CDT [facility] 02/09/2025 12:3 8 AM CDT us Sp Mon MD LABORATORY Final Result [facility] [address] [place] [id number], [id number] * US KIRSTEN DUPLEX LOW EXT LT (02/09/2025 12:35 AM CDT) Anatomical Region Laterality Modality NA Ultrasound 02/09/2025 12:3 8 AM CDT Impressions 02/09/2025 12:47 AM CDT IMPRESSION: 1. Technically limited examination with veins and not compressible due to body habitus. 2. Nonvisualized calf veins. 3. Otherwise patent left lower extremity veins without definite evidence of DVT. 4. Heterogeneous fluid collection up to approximately 20 cm in total highest dimension in the superolateral knee. Correlation with physical examination is recommended. Referred By: VIVIANA GREGG Interpreted By: Chema Shea MD, 02/09/2025 12:38 AM Narrative 02/09/2025 12:47 AM CDT [address] [address] US KIRSTEN DUPLEX LOW EXT, LEFT INDICATION: Posterior knee pain, rule out DVT COMPARISON: No existing relevant imaging study available. FINDINGS: Technically limited examination with veins not compressible due to body habitus. Grayscale ultrasound and color and waveform Doppler evaluation of the left lower extremity was performed. The left common femoral vein, left femoral vein, and left popliteal vein appear patent. The left greater saphenous vein appears patent. The calf veins are not seen. There is a heterogeneous fluid collection measuring up to approximately 20 cm in total highest dimension in the superolateral knee. Procedure Note Chema Shea MD - 02/09/[address] [address] US KIRSTEN DUPLEX LOW EXT, LEFT INDICATION: Posterior knee pain, rule out DVT COMPARISON: No existing relevant imaging study available. FINDINGS: Technically limited examination with veins not compressible due to bodyhabitus. Grayscale ultrasound and color and waveform Doppler evaluation of the leftlower extremity was performed. The left common femoral vein, left femoralvein, and left popliteal vein appear patent. The left greater saphenousvein appears patent. The calf veins are not seen. There is a heterogeneous fluid collection measuring up to approximately 20cm in total highest dimension in the superolateral knee. IMPRESSION: 1. Technically limited examination with veins and not compressible due tobody habitus. 2. Nonvisualized calf veins. 3. Otherwise patent left lower extremity veins without definite evidenceof DVT. 4. Heterogeneous fluid collection up to approximately 20 cm in totalhighest dimension in the superolateral knee. Correlation with physicalexamination is recommended. Referred By: VIVIANA GREGG Interpreted By: Chema Shea MD, 02/09/2025 12:38 AM us Sunil PETE ULTRASOUND Final Resul t from Last 3 Months Insurance [employer] Care Teams Pile Fabric Knitter Relationship Specialty Start Date End Date Judit Ellis FNP [address] [place] [address] PCP - General NURSE PRACTITIONER 06/04/19
--- OUTSIDE RECORDS SUMMARY | 2025-02-14 07:47 | XMS_ITS | Clinical Summary ---
Author Organization [facility] [employer] Address [address] [place] [address] Care Team Providers Care Real Estate Executive Assistant Name Role Phone Sheldonyefri Judit Gerri SHALLOT PACKER-HEAD LOFT WORKER Primary Care Provid er Source Comments [facility],non-owned Affiliates and Associated Physician Practices is amultiple site organization consisting of ambulatory clinics and hospital sitesin [place], [place], [place] and [place]. This disclosure is being madepursuant to the Care Everywhere program and may not contain all information available regarding this patient. 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 Creatinine 0.74 0.71 - 1.16 mg/dL 09/27/2022 12:22 PM [facility] Sodium 141 136 - 145 mmol/L 09/27/2022 12:22 PM [facility] Potassium 3.8 3.5 - 4.5 mmol/L 09/27/2022 12:22 PM [facility] Chloride 105 98 - 107 mmol/L 09/27/2022 12:22 PM [facility] CO2 25 22 - 29 mmol/L 09/27/2022 12:22 PM [facility] Glucose 93 70 - 115 mg/dL 09/27/2022 12:22 PM [facility] Calcium 8.8 8.4 - 10.2 mg/dL 09/27/2022 12:22 PM [facility] Anion Gap 15 8 - 18 09/27/2022 12:22 PM [facility] BUN/Creatinine Ratio 12 7 - 23 09/27/2022 12:22 PM [facility] Osmolality Calculated 290 270 - 300 mOsm/kg 09/27/2022 12:22 PM [facility] eGFR by CKD-EPI >90 >=90 mL/min/1.7 3 m2 09/27/2022 12:22 PM [facility] Blood BLOOD SPECIMEN / Unknown Lab Venipuncture / Unknown 09/27/2022 11:20 AM CDT 09/27/2022 11:49 AM CDT Josep Manriquez MD LAB - CHEMISTRY ORDERABLES Lenore kaur Result [facility] [address] [place] [address], [facility] [phone] from Last 3 Months or Most Recently Relevant to Health Maintenance Insurance Care Teams Real Estate Executive Assistant Relationship Specialty Start Date End Date Juidt Ellis, SHALLOT PACKER-HEAD LOFT WORKER [address] [place] [address] PCP - General Nurse Practitioner Family 09/20/22
== END 2025-02-14 07:46 | disposition home or self-care (01) ==
LOC: CHSIMG 07:45
PROVIDERS: PCP Nurse Practitioner Family; Visit Provider Nurse Practitioner Family
DX: M25.462 Effusion, left knee (principal); M25.562 Pain in left knee; Z22.322 Carrier or suspected carrier of Methicillin resistant Staphylococcus aureus; M94.262 Chondromalacia, left knee; M71.22 Synovial cyst of popliteal space [Baker], left knee
CPT/HCPCS: 73723; A9577